=== PATIENT | female | born 1935 | race Caucasian/White ===

== ENCOUNTER 2017-11-29 13:47 | Inpatient (IN) | payer MEDICARE, MEDICAID ==
[2017-11-29 16:25] LABS: BASO # 0.1 K/uL (0.0-0.2); BASO % 0.8 % (0.0-2.0); EOS # 0.1 K/uL (0.0-0.7); EOS % 1.1 % (0.0-4.0); HEMOGLOBIN 11.5 g/dL (11.0-16.0); LYMPH # 1.2 K/uL (1.0-4.3); LYMPH % 11.7 % (20.0-40.0); MEAN CORPUSCULAR HEMOGLOBIN 31.8 pg (27.0-31.0); MEAN CORPUSCULAR HGB CONC 33.6 g/dL (33.0-37.0); MEAN PLATELET VOLUME 8.2 fL (7.2-11.7); MONO # 0.6 K/uL (0.0-0.8); MONO % 5.7 % (0.0-10.0); NEUT % 80.7 % (50.0-75.0); RBC 3.63 Mil/uL (3.80-5.20); RED CELL DISTRIBUTION WIDTH 15.9 % (11.5-14.5)
[2017-11-29 16:27] LABS: MEAN CELL VOLUME 94.7 fL (81.0-99.0)
[2017-11-29 16:38] LABS: ALB/GLOB RATIO 1.1 (1.0-2.1); ALT/SGPT 75 U/L (9-52); AST/SGOT 52 U/L (14-36); BLOOD UREA NITROGEN 17 mg/dL (7-17); CALCIUM 8.2 mg/dl (8.6-10.4); GFR AFRICAN-AMERICAN > 60; GFR NON-AFRICAN AMERICAN > 60; INR 1.1; PROTHROMBIN TIME 12.1 SECONDS (9.7-12.2)
[2017-11-29] MEDS ORDERED: Sodium Chloride 0.9% 500 ML IV ONE ×2 (17:03→17:37)
--- NOTE | 2017-11-29 17:16 | C.PDOC ---
History Of Present Illness [facility] problem. Time Seen by Provider: 11/29/17 14:13 Chief Complaint (Nursing): GI Problem History Per: Other ([facility] records) History/Exam Limitations: clinical condition Onset/Duration Of Symptoms: Unknown (today) Current Symptoms Are (Timing): Still Present Severity: Moderate Location: G-tube Quality: Leaking? Additional History Per: [facility], Prior Records Past Medical History Reviewed: Historical Data, Nursing Documentation, Vital Signs Vital Signs: Last Vital Signs Temp 97.6 F 11/29/17 14:06 Pulse 89 11/29/17 17:47 Resp 16 11/29/17 17:47 BP 157/69 H 11/29/17 17:47 Pulse Ox 100 11/29/17 17:47 - Medical History PMH: Asthma, HTN, Parkinson's Disease, Seizures Surgical History: Cholecystectomy - [facility] Procedures INTRAOPER CHOLANGIOGRAM (07/13/01) LAPAROSCOPIC CHOLECYSTECTOMY (07/13/01) Family History: States: Unknown Family Hx - Social History Hx Tobacco Use: No Hx Alcohol Use: No Hx Substance Use: No - Immunization History Hx Tetanus Toxoid Vaccination: Yes Hx Influenza Vaccination: Yes Hx Pneumococcal Vaccination: No Review Of Systems Review Of Systems: ROS cannot be obtained secondary to pt's inabilty to answer questions. Physical Exam - Physical Exam Appears: Chronically Ill, Other (Nonverbal) Skin: Normal Color, Warm, Dry Head: Atraumatic, Normacephalic Eye(s): bilateral: PERRL Neck: Normal ROM, Supple Cardiovascular: Rhythm Regular Respiratory: Normal Breath Sounds, No Accessory Muscle Use Gastrointestinal/Abdominal: Soft, Other (G-tube in place with some discharge around it. Fresh surgical wound on abdomen. ) Neurological/Psych: Eyes Open With Command ED Course And Treatment - Laboratory Results Result Diagrams: 11/29/17 16:22 11/29/17 16:22 O2 Sat by Pulse Oximetry: 100 Pulse Ox Interpretation: Normal - Physician Consult Information Physician Contacted: Dre Martin Outcome Of Conversation: He wants pt to be admitted to the hospital and he will consult. Disposition Discussed With : Rafiq Celaya Comment: He accepted pt on his service. Doctor Will See Patient In The: Hospital Counseled Patient/Family Regarding: Studies Performed, Diagnosis - Disposition Disposition: HOSPITALIZED Disposition Time: 18:46 Condition: GUARDED - Clinical Impression Clinical Impression: Problem with gastrostomy tube
[2017-11-29] MEDS: Sodium Chloride 0.9% 1,000 ML IV SCH (23:19)
[2017-11-30] MEDS ORDERED: DIAZEPAM RC PRN ×2 (00:01→10:10)
[2017-11-30] MEDS: Simethicone 40 mg/0.6 ml Liquid (30 ml) PEG SCH ×2 (04:06→08:10)
[2017-11-30] MEDS: Albuterol-Ipratrop 3 mg / 0.5 (3 ml) UD IH SCH (09:42)
[2017-11-30] MEDS: Multiple Vitamins Oral Solution PEG SCH (09:54)
[2017-11-30] MEDS: Carbidopa/Levodopa 25/100 CR PO SCH ×3 (09:55→19:00)
[2017-11-30] MEDS ORDERED: Ergocalciferol 50,000 Intl Units Cap PO SCH (10:00)
[2017-11-30] MEDS: Magnesium Hydroxide Susp 30 ml UD PEG SCH (10:07)
--- NOTE | 2017-11-30 11:12 | CP.PCM.PN ---
Subjective - Date & Time of Evaluation Date of Evaluation: 11/30/17 Time of Evaluation: 11:10 - Subjective Subjective: PGY-[address] Celaya's service: PT seen and examined at bedside. Nursing reports no acute events overnight. Nursing notes from MD show problems with g-tube. ROS cannot be obtained due to baseline pt mental status. Objective - Vital Signs/Intake and Output Vital Signs (last 24 hours): Temp Pulse Resp BP Pulse Ox 97.8 F 96 H 21 160/70 H 98 11/30/17 07:00 11/30/17 07:00 11/30/17 07:00 11/30/17 09:55 11/30/17 07:00 Intake and Output: 11/30/17 11/30/17 06:59 18:59 Intake Total 480 Output Total 1400 Balance -920 - Medications Medications: Current Medications Acetaminophen (Tylenol 325mg Tab) 650 mg PEG Q4 [facility] Last Admin: 11/30/17 08:58 Dose: 650 mg Albuterol/Ipratropium (Duoneb 3 Mg/0.5 Mg (3 Ml) Ud) 3 ml IH DAILY [facility] Last Admin: 11/30/17 09:42 Dose: 3 ml Amantadine HCl (Amantadine 100 Mg Cap) 100 mg PEG BID [facility] Last Admin: 11/30/17 09:55 Dose: 100 mg Amlodipine Besylate (Norvasc) 5 mg PEG DAILY [facility] Last Admin: 11/30/17 09:55 Dose: 5 mg Aspirin (Aspirin Chewable) 81 mg PEG DAILY [facility] Last Admin: 11/30/17 09:55 Dose: 81 mg Carbidopa/Levodopa (Sinemet Cr) 1 tab PO TID [facility] Last Admin: 11/30/17 09:55 Dose: 1 tab Entacapone (Comtan) 200 mg PEG Q8 [facility] Last Admin: 11/30/17 05:56 Dose: 200 mg Ergocalciferol (Drisdol 50,000 Intl Units Cap) 1 cap PO QWK [facility] Last Admin: 11/30/17 09:54 Dose: 1 cap Furosemide (Lasix) 40 mg PEG DAILY [facility] Last Admin: 11/30/17 09:55 Dose: 40 mg Home Med (Diazepam [Diastat Acudial]) 1 each RC PRN PRN PRN Reason: Seizure activity Hydralazine HCl (Apresoline) 50 mg PEG Q6 [facility] Last Admin: 11/30/17 05:56 Dose: 50 mg Sodium Chloride (Sodium Chloride 0.9%) 1,000 mls @ 60 mls/hr IV .[id number] [facility] Last Admin: 11/29/17 23:19 Dose: 60 mls/hr Lamotrigine (Lamictal) 25 mg PO Q12 [facility] Last Admin: 11/30/17 09:54 Dose: 25 mg Magnesium Hydroxide (Milk Of Magnesia) 30 ml PEG DAILY [facility] Metoprolol Tartrate (Lopressor) 25 mg PEG DAILY [facility] Multivitamins/Vitamin C (Multi-Delyn Liquid) 5 ml PEG DAILY [facility] Last Admin: 11/30/17 09:54 Dose: 5 ml Ondansetron HCl (Zofran Tab) 4 mg PEG Q8 [facility] Rosuvastatin Calcium (Crestor) 10 mg PEG HS [facility] Simethicone (Mylicon Liq) 2,000 mg PEG Q4 [facility] - Labs Labs: 11/29/17 16:22 11/29/17 16:22 PT 12.1 SECONDS (9.7-12.2) 11/29/17 16:22 INR 1.1 11/29/17 16:22 APTT 32 SECONDS (21-34) 11/29/17 16:22 - Constitutional Appears: No Acute Distress, Chronically Ill - Head Exam Head Exam: ATRAUMATIC, NORMAL INSPECTION - Eye Exam Eye Exam: EOMI, Normal appearance. absent: Scleral icterus Pupil Exam: PERRL - ENT Exam ENT Exam: Mucous Membranes Moist - Respiratory Exam Respiratory Exam: Clear to Ausculation Bilateral, NORMAL BREATHING PATTERN. absent: Rales - Cardiovascular Exam Cardiovascular Exam: REGULAR RHYTHM, +S1, +S2 - GI/Abdominal Exam GI & Abdominal Exam: Soft, Normal Bowel Sounds Additional comments: G-tube in place Mild erythema around surgical wound White discharge seen on periphery - Neurological Exam Neurological Exam: Altered (non-verbal), Awake. absent: Oriented x3 - Skin Skin Exam: Normal Color, Warm Assessment and Plan - Assessment and Plan (Free Text) Plan: Abd wall cellulitis WBC WNL, Afebrile f/u Ct A/P w PO & IV contrast to r/o intra-abd cavity/abscess formation Flagyl 500mg IV Q8H (started 11/30) Bactroban ointment TOP BID G-tube malfunction Observe on med/surg Dr. Martin, GI bridal consultant - NPO for 12/01/17 f/u dietary reccs, may need TPN NS @ 60cc/hr Abnormal Urine C&S - presumed UTI Pt afebrile over course, WBC WNL Urine Cx: Gram negative Ti Start Rocephin Hx of asthma Duoneb 3ml INH Daily Hx of AMS/Dementia/Parkinsons Consulted Dr. Lowe, neurologist Amantadine 100mg PEG BID Sinemet 1 tab PO TID Entacapone 200mg PEG Q8H Transaminitis AST/ALT 52/75 on admission Monitor after hydration HTN Elevated this AM - monitor Norvasc 5mg PEG Daily Apresoline 50mg PEG Q6H Hx CAD ASA 81mg PEG Daily Crestor 10mg PEG HS Lopressor 25 PEG Daily Vit D Deficiency Ergocalciferol 50k units QWK Seizure Hx Lamictal 25mg PO Q12H Prophylaxis SCDs Hold lovenox due to pending intervention
[2017-11-30] MEDS ORDERED: Simethicone 40 mg/0.6 ml Liquid (30 ml) PEG SCH (12:00)
[2017-11-30] MEDS ORDERED: Iohexol 240 (50 ml) PO ONE (12:15)
--- NOTE | 2017-11-30 12:52 | CP.PCM.HP ---
Past Patient History - Past Social History Smoking Status: Former Smoker - CARDIAC Hx Hypertension: Yes - PULMONARY Hx Asthma: Yes - NEUROLOGICAL Hx Parkinson's Disease: Yes Hx Seizures: Yes - RENAL Hx Chronic Kidney Disease: No - ENDOCRINE/METABOLIC Hx Endocrine Disorders: No - HEMATOLOGICAL/ONCOLOGICAL Hx Anemia: Yes - MUSCULOSKELETAL/RHEUMATOLOGICAL Hx Falls: Yes (2014) - GASTROINTESTINAL Hx Gastroesophageal Reflux: Yes Other/Comment: dysphagia - GENITOURINARY/GYNECOLOGICAL Hx Urinary Tract Infection: Yes - PSYCHIATRIC Hx Substance Use: No - SURGICAL HISTORY Hx Cholecystectomy: Yes - ANESTHESIA Hx Anesthesia: Yes Hx Anesthesia Reactions: No Meds Allergies/Adverse Reactions: Allergies Allergy/AdvReac Type Severity Reaction Status Date / Time No Known Allergies Allergy Verified 11/29/17 14:10 Physical Exam - Constitutional Appears: Well - Head Exam Head Exam: ATRAUMATIC, NORMAL INSPECTION, NORMOCEPHALIC - Eye Exam Eye Exam: EOMI, Normal appearance, PERRL Pupil Exam: NORMAL ACCOMODATION, PERRL - ENT Exam ENT Exam: Mucous Membranes Moist, Normal Exam - Neck Exam Neck exam: Positive for: Normal Inspection - Respiratory Exam Respiratory Exam: Decreased Breath Sounds - Cardiovascular Exam Cardiovascular Exam: REGULAR RHYTHM, +S1, +S2 - GI/Abdominal Exam GI & Abdominal Exam: Diminished Bowel Sounds, Soft - Rectal Exam Rectal Exam: Deferred Results - Vital Signs Recent Vital Signs: Last Vital Signs Temp 97.8 F 11/30/17 07:00 Pulse 96 H 11/30/17 07:00 Resp 21 11/30/17 07:00 BP 160/70 H 11/30/17 09:55 Pulse Ox 98 11/30/17 07:00 - Labs Result Diagrams: 11/29/17 16:22 11/29/17 16:22 Labs: Laboratory Results - last 24 hr 11/29/17 11/29/17 11/29/17 16:22 16:22 16:22 WBC 10.0 RBC 3.63 L Hgb 11.5 Hct 34.4 MCV 94.7 D MCH 31.8 H MCHC 33.6 RDW 15.9 H Plt Count 318 D MPV 8.2 Neut % (Auto) 80.7 H Lymph % (Auto) 11.7 L [place] % (Auto) 5.7 Eos % (Auto) 1.1 Baso % (Auto) 0.8 Neut # (Auto) 8.0 H Lymph # (Auto) 1.2 [place] # (Auto) 0.6 Eos # (Auto) 0.1 Baso # (Auto) 0.1 PT 12.1 INR 1.1 APTT 32 Sodium 138 Potassium 3.8 Chloride 102 Carbon Dioxide 30 Anion Gap 9 L BUN 17 Creatinine 0.6 L Est GFR ( Amer) > 60 Est GFR (Non-Af Amer) > 60 Random Glucose 123 H Calcium 8.2 L Total Bilirubin 1.0 AST 52 H ALT 75 H D Alkaline Phosphatase 94 Total Protein 5.9 L Albumin 3.0 L D Globulin 2.9 Albumin/Globulin Ratio 1.1
[2017-11-30] MEDS: Sodium Chloride 0.9% 1,000 ML IV SCH ×2 (13:11→15:55)
[2017-11-30] MEDS: metroNIDAZOLE IV 500 mg/100 ml 500 MG/100 ML BAG IVPB SCH ×2 (13:40→21:56)
--- NOTE | 2017-11-30 14:29 | PN ---
DATE: LOCATION: 364, bed B. SUBJECTIVE: This is an 82-year-old female seen and examined yesterday on 11/29/2017 as per the request of the ER staff as well as the admitting MD, examined again today with the staff in the floor. The case was discussed at length with the ER staff as well as the admitting MD. The patient reported to have gastrostomy tube in place, leaking, without any reported active bleeding or residual, but edematous changes with hypererythematous changes around the gastrostomy tube with possible intra-abdominal or even intragastric cavity abscess formation with partial malfunction of the G-tube. The entire chart is reviewed including but not limited to the most recent lab and radiology study results, current and the previous medication list, current and the previous medical events. Today's lab results are still pending; however, yesterday's lab showed increased blood glucose level with low calcium, mildly elevated AST and ALT with low albumin, low total protein. No abdominal x-ray done yet. PHYSICAL EXAMINATION: GENERAL: An 82-year-old female, somewhat awake. VITAL SIGNS: Afebrile with pulse of 94, respiratory rate of 20 to 22, blood pressure of 154/66. HEENT: Showed pale, dry oral mucous membranes mildly, nonicteric sclerae. LUNGS: Scattered mild crepitation. Decreased air entry at bases. HEART: Positive S1 and S2. ABDOMEN: Soft with mild abdominal distention, with leakage around the gastrostomy tube, associated with anterior abdominal wall cellulitis, mild. This G-tube was placed surgically in [facility] a few days ago. EXTREMITIES: Without significant clubbing, cyanosis, or edema. NEUROLOGIC: No reported new neurological deficits, sensory or motor. No reported new focal deficits. IMPRESSION: 1. Gastrostomy tube malfunction. 2. Anterior abdominal wall cellulitis, rule out intra-abdominal intragastric cavity abscess formation. 3. Infected gastrocutaneous fistula, post gastrostomy tube insertion. 4. Known history but not limited to hypertension, seizure disorder, parkinsonian disease with bronchial asthma. 5. Known history of status post cholecystectomy. 6. Peptic ulcer disease by patient's upper endoscopy. SUGGESTIONS: 1. Agree with your plan. 2. Continue current antibiotics including Flagyl IV as discussed with the ER staff which was not apparently ordered before. 3. Peripheral hyperalimentation. 4. abdominal and pelvic CAT scan. 5. Patient may need endoscopic evaluation of the upper GI tract at a.m. for evaluation of the location of the mushroom head of the gastrostomy tube after full evaluation of the CAT scan of the abdomen and pelvis. 6. Further recommendation to follow. Dre Bell MD
[2017-11-30] MEDS ORDERED: Iodixanol 320 MG/ML 100 ML BOTTLE IV ONE (15:43)
--- NOTE | 2017-11-30 16:34 | CT ---
PROCEDURE: CT Abdomen and Pelvis with contrast HISTORY: r/o intra abdominal abcess COMPARISON: None. TECHNIQUE: Contrast dose: 100 mL Visipaque 320 Radiation dose: Total exam DLP = 1033.27 mGy-cm. This CT exam was performed using one or more of the following dose reduction techniques: Automated exposure control, adjustment of the mA and/or kV according to patient size, and/or use of iterative reconstruction technique. FINDINGS: LOWER THORAX: Small bilateral pleural effusion. Bilateral lower lobe subsegmental atelectasis, right greater than left. Mild cardiomegaly. Coronary arterial calcification. LIVER: Normal size, contour and attenuation. Multiple small low-attenuation nonspecific hepatic masses, largest 2 cm. No biliary ductal dilatation. GALLBLADDER AND BILE DUCTS: Status post cholecystectomy. Mild dilatation of the common bile duct consistent with prior cholecystectomy and patient age. PANCREAS: Unremarkable. No gross lesion or ductal dilatation. SPLEEN: Unremarkable. ADRENALS: Unremarkable. No mass. KIDNEYS AND URETERS: Exophytic left upper pole renal cortical cyst, 1.5 cm. No renal calculus or hydronephrosis. VASCULATURE: Unremarkable. No aortic aneurysm. BOWEL: No evidence of bowel obstruction. Mild retained feces. Cecum is situated in left lower quadrant of abdomen. Percutaneous gastrostomy. APPENDIX: Not identified. No secondary findings. PERITONEUM: Trace fluid in cul-de-sac LYMPH NODES: Unremarkable. No enlarged lymph nodes. BLADDER: Urinary bladder decompressed around Cordon catheter balloon. REPRODUCTIVE: Postmenopausal uterus. BONES: Severe thoracolumbar dextroscoliosis. OTHER FINDINGS: None. IMPRESSION: No evidence of intra-abdominal abscess. No bowel obstruction. Percutaneous gastrostomy. Small bilateral pleural effusion and lower lobe subsegmental atelectasis. Additional minor findings as above.
[2017-11-30] MEDS: Simethicone 80 mg Chewtab PO SCH ×2 (18:00→21:50)
[2017-12-01] MEDS: metroNIDAZOLE IV 500 mg/100 ml 500 MG/100 ML BAG IVPB SCH ×3 (05:19→21:45)
[2017-12-01] MEDS: Sodium Chloride 0.9% 1,000 ML IV SCH ×2 (05:21→07:59)
--- NOTE | 2017-12-01 06:26 | CON ---
DATE: 11/29/2017 REQUESTED PHYSICIAN: Sonia Celaya MD I was called for GI consultation by the admitting MD as well as the ER staff, patient is seen and fully examined on 11/29/2017. Case discussed with the ER staff at that time at length. The entire chart is reviewed including but not limited to the most recent lab and radiology study results, current and the previous medication list, current and the previous medical events, allergy to medication list, as well as all the available current and the previous medical records. Case discussed with the admitting team at length. This is an 82 years old female with multiple past medical history, who was admitted to the hospital through the emergency room from a half-way with reported leakage of recently inserted gastrostomy tube with gastrostomy tube dysfunction partially and apparently evidence of anterior abdominal wall cellulitis but no reported active bleeding or residual, no reported complete resistance during feeding. It has to be mentioned that all the information obtained from the medical record, medical staff, half-way notes, and nursing staff records. This patient is a known case for me from very recent previous admission in [facility] with status post upper endoscopy, then gastrostomy tube insertion by surgical team. PAST MEDICAL HISTORY: Including, but not limited to: 1. Hypertension. 2. Seizure disorder. 3. Parkinsonian disease. 4. Bronchial asthma with history of pneumonia before. 5. Status post cholecystectomy. 6. Malnutrition. 7. Peptic ulcer disease. 8. Failure to thrive. 9. Status post gastrostomy tube insertion done surgically recently. SOCIAL HISTORY: No known recent history of cigarette smoking or alcohol intake. The patient is a half-way resident. CURRENT MEDICATIONS: Medication list post admission reviewed. FAMILY HISTORY: Noncontributory. ALLERGIES TO MEDICATIONS: UNCLEAR. Initial blood workup at the time of the admission showed white blood cells of 10, hemoglobin 11.5, hematocrit 34.4 with platelet count 318,000. Blood glucose level 123. PHYSICAL EXAMINATION: GENERAL: An 82-year-old female, somewhat awake, afebrile with pulse of 86, respiratory rate 18-20, blood pressure 154/62. HEENT: Showed pale, dry oral mucous membrane mildly. Nonicteric sclerae. LYMPH NODES: No lymphadenitis or lymphadenopathy. LUNGS: Few scattered bilateral crepitation with few rhonchi and mild decreased air entry bilaterally. HEART: Positive S1 and S2. ABDOMEN: Soft with mild distention, recently inserted gastrostomy tube is in place, leaking, with very slight resistance to feeding material or water insertion. Hyper-erythematous mucosa around the recently formed stoma, indicative of anterior abdominal wall cellulitis. No mass or organomegaly. No rebound tenderness or guarding. EXTREMITIES: Lower extremities mild edematous changes. No clubbing or cyanosis. NEUROLOGIC: No reported new neurological deficits, sensory or motor. No new reported focal deficits. IMPRESSION: 1. Gastrostomy tube malfunction. 2. Evidence of early stage of anterior abdominal wall cellulitis. 3. To rule out displaced mushroom head of feeding tube between the anterior abdominal wall and gastric wall. 4. Multiple past medical history as reported above. 5. Hyperglycemia of unclear etiology. SUGGESTIONS: 1. Proton pump inhibitors IV. 2. Flagyl IV. 3. Sectional abdominal and pelvic CAT scan. 4. Central hyperalimentation. 5. Surgical consultation, as this gastrostomy tube was inserted surgically and the possibility of intragastric intra-abdominal wall abscess formation to be ruled in or out. 6. The patient may need upper endoscopy if the symptoms persist. Thank you for letting me participate in your patient's case management. Further recommendation to follow. Dre Bell MD
[2017-12-01 07:22] LABS: BASO # 0.2 K/uL (0.0-0.2); BASO % 2.6 % (0.0-2.0); EOS # 0.2 K/uL (0.0-0.7); EOS % 2.2 % (0.0-4.0); HEMOGLOBIN 10.9 g/dL (11.0-16.0); LYMPH # 1.3 K/uL (1.0-4.3); LYMPH % 15.4 % (20.0-40.0); MEAN CELL VOLUME 95.2 fL (81.0-99.0); MEAN CORPUSCULAR HEMOGLOBIN 32.4 pg (27.0-31.0); MEAN PLATELET VOLUME 8.5 fL (7.2-11.7); MONO # 0.6 K/uL (0.0-0.8); MONO % 7.2 % (0.0-10.0); NEUT # 6.2 K/uL (1.8-7.0); NEUT % 72.6 % (50.0-75.0); RBC 3.37 Mil/uL (3.80-5.20); WHITE BLOOD COUNT 8.5 K/uL (4.8-10.8)
[2017-12-01 07:36] LABS: ALB/GLOB RATIO 0.9 (1.0-2.1); ALBUMIN 2.7 g/dL (3.5-5.0); ALT/SGPT 25 U/L (9-52); AST/SGOT 36 U/L (14-36); BLOOD UREA NITROGEN 12 mg/dL (7-17); CALCIUM 8.6 mg/dl (8.6-10.4); GFR AFRICAN-AMERICAN > 60; GFR NON-AFRICAN AMERICAN > 60
[2017-12-01] MEDS: Magnesium Hydroxide Susp 30 ml UD PEG SCH (10:08)
[2017-12-01] MEDS: Multiple Vitamins Oral Solution PEG SCH (10:08)
[2017-12-01] MEDS: Carbidopa/Levodopa 25/100 CR PO SCH ×3 (10:10→21:51)
[2017-12-01] MEDS: Simethicone 80 mg Chewtab PO SCH ×4 (10:11→21:50)
[2017-12-01] MEDS: Albuterol-Ipratrop 3 mg / 0.5 (3 ml) UD IH SCH (13:48)
--- NOTE | 2017-12-01 14:28 | CP.PCM.CON ---
History of Present Illness - History of Present Illness History of Present Illness: [facility] due to [facility] problem. Chief Complaint (Nursing): GI Problem, Gastric tube is not conveying her food to the stomach Advanced Parkinsonism Seizures Dementia Inability to walk since 2 years Acute AMS Dementia HTN High Lipid profile Dysphagia Resident of a penitentiary. Vitamin D Deficiency History Per: Other ([place] records) History/Exam Limitations: clinical condition Onset/Duration Of Symptoms: Unknown (today) Current Symptoms Are (Timing): Still Present Severity: Moderate Location: G-tube Quality: Leaking? Additional History Per: Jail, Prior Records Past Medical History Reviewed: Historical Data, Nursing Documentation, Vital Signs Vital Signs: Last Vital Signs Temp 97.6 F 11/29/17 14:06 Pulse 89 11/29/17 17:47 Resp 16 11/29/17 17:47 BP 157/69 H 11/29/17 17:47 Pulse Ox 100 11/29/17 17:47 - Medical History PMH: Asthma, HTN, Advanced Parkinson's Disease, Seizures Surgical History: Cholecystectomy - [facility] Procedures INTRAOPER CHOLANGIOGRAM (07/13/01) LAPAROSCOPIC CHOLECYSTECTOMY (07/13/01) Family History: States: Unknown Family Hx - Social History Hx Tobacco Use: No Hx Alcohol Use: No Hx Substance Use: No - Immunization History Hx Tetanus Toxoid Vaccination: Yes Hx Influenza Vaccination: Yes Hx Pneumococcal Vaccination: No Review Of Systems Review Of Systems: ROS cannot be obtained secondary to pt's inabilty to answer questions. Physical Exam - Physical Exam Appears: Chronically Ill, Other (Nonverbal) Skin: Normal Color, Warm, Dry Head: Atraumatic, Normacephalic Eye(s): bilateral: PERRL Neck: Normal ROM, Supple Cardiovascular: Rhythm Regular Respiratory: Normal Breath Sounds, No Accessory Muscle Use Gastrointestinal/Abdominal: Soft, Other (G-tube in place with some discharge around it. Fresh surgical wound on abdomen. ) Neurological/Psych: Eyes Open With Command ED Course And Treatment - Laboratory Results O2 Sat by Pulse Oximetry: 100 Pulse Ox Interpretation: Normal - Physician Consult Information Physician Contacted: Dre Martin Outcome Of Conversation: He wants pt to be admitted to the hospital and he will consult. Disposition Discussed With : Sonia Celaya Comment: He accepted pt on his service. Doctor Will See Patient In The: Hospital Counseled Patient/Family Regarding: Studies Performed, Diagnosis - Disposition Disposition: HOSPITALIZED Disposition Time: 18:46 Condition: GUARDED - Clinical Impression Clinical Impression: Problem with gastrostomy tube Past Patient History - Past Social History Smoking Status: Former Smoker - CARDIAC Hx Hypertension: Yes - PULMONARY Hx Asthma: Yes - NEUROLOGICAL Hx Parkinson's Disease: Yes Hx Seizures: Yes - RENAL Hx Chronic Kidney Disease: No - ENDOCRINE/METABOLIC Hx Endocrine Disorders: No - HEMATOLOGICAL/ONCOLOGICAL Hx Anemia: Yes - MUSCULOSKELETAL/RHEUMATOLOGICAL Hx Falls: Yes (2014) - GASTROINTESTINAL Hx Gastroesophageal Reflux: Yes Other/Comment: dysphagia - GENITOURINARY/GYNECOLOGICAL Hx Urinary Tract Infection: Yes - PSYCHIATRIC Hx Substance Use: No - SURGICAL HISTORY Hx Cholecystectomy: Yes - ANESTHESIA Hx Anesthesia: Yes Hx Anesthesia Reactions: No Meds Home Medications: Home Medication List Medication Instructions Recorded Confirmed Type Calcium Carbonate [Oscal] 500 mg PO BID 30 Days #0 tab 12/03/17 Rx Memantine [Namenda] 10 mg PO DAILY tab 12/03/17 Rx Mupirocin 2% Ointment [Bactroban 22 gm TOP BID tube 12/03/17 Rx Ointment] Simethicone [Mylicon Chew Tab] 80 mg PO QID chew 12/03/17 Rx Allergies/Adverse Reactions: Allergies Allergy/AdvReac Type Severity Reaction Status Date / Time No Known Allergies Allergy Verified 11/29/17 14:10 - Medications Medications: Current Medications Acetaminophen (Tylenol 325mg Tab) 650 mg PEG Q4 [facility] Last Admin: 12/01/17 12:23 Dose: 650 mg Albuterol/Ipratropium (Duoneb 3 Mg/0.5 Mg (3 Ml) Ud) 3 ml IH DAILY [facility] Last Admin: 12/01/17 13:48 Dose: 3 ml Amantadine HCl (Amantadine 100 Mg Cap) 100 mg PEG BID [facility] Last Admin: 12/01/17 10:10 Dose: 100 mg Amlodipine Besylate (Norvasc) 5 mg PEG DAILY [facility] Last Admin: 12/01/17 10:11 Dose: 5 mg Aspirin (Aspirin Chewable) 81 mg PEG DAILY [facility] Last Admin: 12/01/17 10:11 Dose: 81 mg Carbidopa/Levodopa (Sinemet Cr) 1 tab PO TID [facility] Last Admin: 12/01/17 13:48 Dose: 1 tab Entacapone (Comtan) 200 mg PEG Q8 [facility] Last Admin: 12/01/17 13:48 Dose: 200 mg Ergocalciferol (Drisdol 50,000 Intl Units Cap) 1 cap PO QWK [facility] Last Admin: 11/30/17 09:54 Dose: 1 cap Furosemide (Lasix) 40 mg PEG DAILY [facility] Last Admin: 12/01/17 10:12 Dose: 40 mg Home Med (Diazepam [Diastat Acudial]) 1 each RC PRN PRN PRN Reason: Seizure activity Hydralazine HCl (Apresoline) 50 mg PEG Q6 [facility] Last Admin: 12/01/17 12:23 Dose: 50 mg Sodium Chloride (Sodium Chloride 0.9%) 1,000 mls @ 60 mls/hr IV .[id number] [facility] Last Admin: 12/01/17 07:59 Dose: Not Given Metronidazole (Flagyl) 500 mg in 100 mls @ 100 mls/hr IVPB Q8 [facility] PRN Reason: Protocol Last Admin: 12/01/17 13:48 Dose: 100 mls/hr Ceftriaxone Sodium 1 gm/ (Sodium Chloride) 100 mls @ 100 mls/hr IVPB Q24H [facility] PRN Reason: Protocol Last Admin: 12/01/17 14:00 Dose: 100 mls/hr Lamotrigine (Lamictal) 25 mg PO Q12 [facility] Last Admin: 12/01/17 10:11 Dose: 25 mg Magnesium Hydroxide (Milk Of Magnesia) 30 ml PEG DAILY [facility] Last Admin: 12/01/17 10:08 Dose: 30 ml Metoprolol Tartrate (Lopressor) 25 mg PEG DAILY [facility] Last Admin: 12/01/17 10:11 Dose: 25 mg Multivitamins/Vitamin C (Multi-Delyn Liquid) 5 ml PEG DAILY [facility] Last Admin: 12/01/17 10:08 Dose: 5 ml Mupirocin (Bactroban Ointment) 0 gm TOP BID [facility] Last Admin: 12/01/17 10:24 Dose: 1 applic Ondansetron HCl (Zofran Tab) 4 mg PEG Q8 [facility] Last Admin: 12/01/17 05:19 Dose: 4 mg Rosuvastatin Calcium (Crestor) 10 mg PEG HS [facility] Last Admin: 11/30/17 21:49 Dose: 10 mg Simethicone (Mylicon Chew Tab) 80 mg PO QID [facility] Last Admin: 12/01/17 13:48 Dose: 80 mg Physical Exam - Neurological Exam Neurological exam: Abnormal Gait, Alert, Altered, CN II-XII Intact, Motor Sensory Deficit, Normal Gait, Oriented x3, Reflexes Normal Additional comments: Mental Status Awake, alert, disoriented, hardly verbal Doesn't follow commands knows her name positive eye to eye contact. Cranial Nerves II to XII: moves her eyes normally, Normal EOM movements Pupils are 3-4 mm, equal reactive to light No facial asymmetry Central Tongue, unable to swallow Gastric Tube is placed. Motor: Rigidity, positive cog wheeling generally weak, moves both UEs more than she is moving the LEs DTR 0/4 allover Toes: Equivocal sensory: Intact pain by moving away her hand and grimacing Cerebellar: unable Stature and gait: not walking since 2 years. Results - Vital Signs Recent Vital Signs: Last Vital Signs Temp 98.9 F 12/01/17 13:47 Pulse 94 H 12/01/17 13:47 Resp 19 12/01/17 13:47 BP 147/67 12/01/17 13:47 Pulse Ox 97 12/01/17 13:47 - Labs Result Diagrams: 12/03/17 08:03 12/03/17 08:03 Labs: Laboratory Results - last 24 hr 12/01/17 12/01/17 07:14 07:14 WBC 8.5 RBC 3.37 L Hgb 10.9 L Hct 32.1 L MCV 95.2 MCH 32.4 H MCHC 34.0 RDW 15.0 H Plt Count 303 MPV 8.5 Neut % (Auto) 72.6 Lymph % (Auto) 15.4 L [place] % (Auto) 7.2 Eos % (Auto) 2.2 Baso % (Auto) 2.6 H Neut # (Auto) 6.2 Lymph # (Auto) 1.3 [place] # (Auto) 0.6 Eos # (Auto) 0.2 Baso # (Auto) 0.2 Sodium 139 Potassium 3.8 Chloride 106 Carbon Dioxide 24 Anion Gap 13 BUN 12 Creatinine 0.6 L Est GFR ( Amer) > 60 Est GFR (Non-Af Amer) > 60 Random Glucose 64 L Calcium 8.6 Total Bilirubin 1.0 AST 36 D ALT 25 Alkaline Phosphatase 90 Total Protein 5.7 L Albumin 2.7 L Globulin 3.0 Albumin/Globulin Ratio 0.9 L Assessment & Plan (1) Parkinsonism Status: Chronic Comment: make Sinemet dose Q 8 hrs , 1 hr before or 2 hrs after meals, to be taken with Entacapone 200 mg Q 8 hrs. (2) HTN (hypertension) Status: Chronic (3) Hyperlipemia Status: Chronic (4) Dementia Status: Chronic (5) UTI (urinary tract infection) Status: Chronic (6) Problem with gastrostomy tube Status: Acute (7) Seizures Assessment and Plan: Active, CPSz On Lamictal 50 mg Q 12hrs Dose is increased to 50 mg Q 12 hrs Status: Acute (8) Altered mental status Assessment and Plan: Related, advanced Parkinsonism, to poor nutrition, Seizures, Encephalopathy, Advanced Parkinsonism, Dementia, UTI, Change of place from [facility] to 2 different [facility]als Status: Acute (9) Vitamin D deficiency Assessment and Plan: On Oscal 500 mg BID and Ergocalciferol 50,000 Units week Status: Acute (10) Sleep apnea Assessment and Plan: She needs a sleep study as sleep apnea is a known complication in Parkinsonism and she is not sleeping at night. Status: Acute
--- NOTE | 2017-12-01 14:34 | CP.PCM.PN ---
Subjective - Date & Time of Evaluation Date of Evaluation: 12/01/17 Time of Evaluation: 07:40 - Subjective Subjective: clinically same Objective - Vital Signs/Intake and Output Vital Signs (last 24 hours): Temp Pulse Resp BP Pulse Ox 98.9 F 94 H 19 147/67 97 12/01/17 13:47 12/01/17 13:47 12/01/17 13:47 12/01/17 13:47 12/01/17 13:47 Intake and Output: 12/01/17 12/01/17 06:59 18:59 Intake Total 1260 Output Total 2300 Balance -1040 - Medications Medications: Current Medications Acetaminophen (Tylenol 325mg Tab) 650 mg PEG Q4 [facility] Last Admin: 12/01/17 12:23 Dose: 650 mg Albuterol/Ipratropium (Duoneb 3 Mg/0.5 Mg (3 Ml) Ud) 3 ml IH DAILY [facility] Last Admin: 12/01/17 13:48 Dose: 3 ml Amantadine HCl (Amantadine 100 Mg Cap) 100 mg PEG BID [facility] Last Admin: 12/01/17 10:10 Dose: 100 mg Amlodipine Besylate (Norvasc) 5 mg PEG DAILY [facility] Last Admin: 12/01/17 10:11 Dose: 5 mg Aspirin (Aspirin Chewable) 81 mg PEG DAILY [facility] Last Admin: 12/01/17 10:11 Dose: 81 mg Carbidopa/Levodopa (Sinemet Cr) 1 tab PO TID [facility] Last Admin: 12/01/17 13:48 Dose: 1 tab Entacapone (Comtan) 200 mg PEG Q8 [facility] Last Admin: 12/01/17 13:48 Dose: 200 mg Ergocalciferol (Drisdol 50,000 Intl Units Cap) 1 cap PO QWK [facility] Last Admin: 11/30/17 09:54 Dose: 1 cap Furosemide (Lasix) 40 mg PEG DAILY [facility] Last Admin: 12/01/17 10:12 Dose: 40 mg Home Med (Diazepam [Diastat Acudial]) 1 each RC PRN PRN PRN Reason: Seizure activity Hydralazine HCl (Apresoline) 50 mg PEG Q6 [facility] Last Admin: 12/01/17 12:23 Dose: 50 mg Sodium Chloride (Sodium Chloride 0.9%) 1,000 mls @ 60 mls/hr IV .[id number] [facility] Last Admin: 12/01/17 07:59 Dose: Not Given Metronidazole (Flagyl) 500 mg in 100 mls @ 100 mls/hr IVPB Q8 [facility] PRN Reason: Protocol Last Admin: 12/01/17 13:48 Dose: 100 mls/hr Ceftriaxone Sodium 1 gm/ (Sodium Chloride) 100 mls @ 100 mls/hr IVPB Q24H [facility] PRN Reason: Protocol Last Admin: 12/01/17 14:00 Dose: 100 mls/hr Lamotrigine (Lamictal) 25 mg PO Q12 [facility] Last Admin: 12/01/17 10:11 Dose: 25 mg Magnesium Hydroxide (Milk Of Magnesia) 30 ml PEG DAILY [facility] Last Admin: 12/01/17 10:08 Dose: 30 ml Metoprolol Tartrate (Lopressor) 25 mg PEG DAILY [facility] Last Admin: 12/01/17 10:11 Dose: 25 mg Multivitamins/Vitamin C (Multi-Delyn Liquid) 5 ml PEG DAILY [facility] Last Admin: 12/01/17 10:08 Dose: 5 ml Mupirocin (Bactroban Ointment) 0 gm TOP BID [facility] Last Admin: 12/01/17 10:24 Dose: 1 applic Ondansetron HCl (Zofran Tab) 4 mg PEG Q8 [facility] Last Admin: 12/01/17 05:19 Dose: 4 mg Rosuvastatin Calcium (Crestor) 10 mg PEG HS [facility] Last Admin: 11/30/17 21:49 Dose: 10 mg Simethicone (Mylicon Chew Tab) 80 mg PO QID [facility] Last Admin: 12/01/17 13:48 Dose: 80 mg - Labs Labs: 12/01/17 07:14 12/01/17 07:14 PT 12.1 SECONDS (9.7-12.2) 11/29/17 16:22 INR 1.1 11/29/17 16:22 APTT 32 SECONDS (21-34) 11/29/17 16:22 - Constitutional Appears: Well - Head Exam Head Exam: ATRAUMATIC, NORMAL INSPECTION, NORMOCEPHALIC - Eye Exam Eye Exam: EOMI, Normal appearance, PERRL Pupil Exam: NORMAL ACCOMODATION, PERRL - ENT Exam ENT Exam: Mucous Membranes Moist, Normal Exam - Neck Exam Neck Exam: Full ROM, Normal Inspection. absent: Lymphadenopathy - Respiratory Exam Respiratory Exam: Decreased Breath Sounds - Cardiovascular Exam Cardiovascular Exam: REGULAR RHYTHM, +S1, +S2 - GI/Abdominal Exam GI & Abdominal Exam: Soft, Diminished Bowel Sounds - Rectal Exam Rectal Exam: Deferred
[2017-12-02] MEDS: Sodium Chloride 0.9% 1,000 ML IV SCH ×2 (00:21→17:50)
[2017-12-02] MEDS: metroNIDAZOLE IV 500 mg/100 ml 500 MG/100 ML BAG IVPB SCH ×3 (05:41→21:40)
[2017-12-02] MEDS: Carbidopa/Levodopa 25/100 CR PO SCH (05:42)
--- NOTE | 2017-12-02 08:52 | PN ---
DATE: 12/01/2017 LOCATION: 364, bed B. SUBJECTIVE: This is an 82-year-old female seen and examined in rounds without significant clinical changes or reported active bleeding, with leakage again around the recently inserted gastrostomy tube. The entire chart is reviewed including but not limited to the most recent lab and radiology study results, current and the previous medication list, current and the previous medical events. Case discussed with the staff at length. Still awaiting for legal guardian consent for potential upper endoscopy for full evaluation of the position of the gastrostomy tube mushroom head. Today's lab showed hemoglobin 10.9, hematocrit 32.1, normal white blood cells, and normal platelet count, low creatinine of 0.6. Hypoglycemia with blood glucose level of 64. Albumin 2.7, total protein 5.7. Most recently done CAT scan of the abdomen and pelvis yesterday, official report is seen. PHYSICAL EXAMINATION: GENERAL: An 82-year-old female, who appeared to be awake. VITAL SIGNS: Afebrile, with pulse of 96, respiratory rate 20 to 22, blood pressure of 140/64. HEENT: Showed pale, dry mucous membranes. Nonicteric sclerae. LUNGS: Few scattered crepitations. Decreased air entry at bases. HEART: Positive S1 and S2. ABDOMEN: Soft, with slight distention. The recently inserted gastrostomy tube is in place with partial dysfunction and leakage with evidence of anterior abdominal wall cellulitis. Bowel sounds are present. No mass or organomegaly. EXTREMITIES: Without significant edema, clubbing, or cyanosis. NEUROLOGIC: No reported new neurological deficits, sensory or motor. IMPRESSION: 1. Malnutrition with hypoalbuminemia, hypoproteinemia. 2. Known history of peptic ulcer disease. 3. Status post gastrostomy tube insertion done surgically with partial malfunction and leakage. 4. Evidence of anterior abdominal wall cellulitis. 5. Known history of, but not limited to bronchial asthma, seizure disorder, Parkinsonian disease with hypertension. 6. Known history of status post cholecystectomy. SUGGESTIONS: 1. Continue current management. 2. The patient for potential upper endoscopy at a.m., awaiting family or legal guardian consent. 3. Further recommendations to follow. Dre Bell MD
[2017-12-02] MEDS ORDERED: Lactated Ringer's 1,000 ML IV ONE ×3 (10:31)
[2017-12-02] MEDS: Multiple Vitamins Oral Solution PEG SCH (10:44)
[2017-12-02] MEDS: Magnesium Hydroxide Susp 30 ml UD PEG SCH (10:44)
[2017-12-02] MEDS: Simethicone 80 mg Chewtab PO SCH ×4 (10:46→21:34)
--- NOTE | 2017-12-02 11:31 | CP.PCM.PN ---
Subjective - Date & Time of Evaluation Date of Evaluation: 12/02/17 Time of Evaluation: 11:25 - Subjective Subjective: PGY-[address] Celaya's service: PT seen and examined at bedside. Nursing reports no acute events overnight. Pt for EEG this AM. ROS cannot be obtained due to baseline pt mental status. Objective - Vital Signs/Intake and Output Vital Signs (last 24 hours): Temp Pulse Resp BP Pulse Ox 97.5 F L 93 H 15 158/71 H 100 12/02/17 10:45 12/02/17 10:45 12/02/17 10:45 12/02/17 10:45 12/02/17 10:45 Intake and Output: 12/02/17 12/02/17 06:59 18:59 Intake Total 800 Output Total 500 Balance 300 - Medications Medications: Current Medications Acetaminophen (Tylenol 325mg Tab) 650 mg PEG Q4 PRN PRN Reason: FOR PAIN Albuterol/Ipratropium (Duoneb 3 Mg/0.5 Mg (3 Ml) Ud) 3 ml IH DAILY [facility] Last Admin: 12/01/17 13:48 Dose: 3 ml Amantadine HCl (Amantadine 100 Mg Cap) 100 mg PEG BID [facility] Last Admin: 12/02/17 10:43 Dose: Not Given Amlodipine Besylate (Norvasc) 5 mg PEG DAILY [facility] Last Admin: 12/02/17 10:46 Dose: Not Given Aspirin (Aspirin Chewable) 81 mg PEG DAILY [facility] Last Admin: 12/02/17 10:43 Dose: Not Given Calcium Carbonate (Oscal) 500 mg PO BID [facility] Last Admin: 12/02/17 10:46 Dose: Not Given Carbidopa/Levodopa (Sinemet) 1 tab PO Q8 [facility] Entacapone (Comtan) 200 mg PEG Q8 [facility] Last Admin: 12/02/17 05:43 Dose: Not Given Ergocalciferol (Drisdol 50,000 Intl Units Cap) 1 cap PO QWK [facility] Last Admin: 11/30/17 09:54 Dose: 1 cap Furosemide (Lasix) 40 mg PEG DAILY [facility] Last Admin: 12/02/17 10:44 Dose: Not Given Home Med (Diazepam [Diastat Acudial]) 1 each RC PRN PRN PRN Reason: Seizure activity Hydralazine HCl (Apresoline) 50 mg PEG Q6 [facility] Last Admin: 12/02/17 05:43 Dose: Not Given Sodium Chloride (Sodium Chloride 0.9%) 1,000 mls @ 60 mls/hr IV .[id number] [facility] Last Admin: 12/02/17 00:21 Dose: 60 mls/hr Metronidazole (Flagyl) 500 mg in 100 mls @ 100 mls/hr IVPB Q8 [facility] PRN Reason: Protocol Last Admin: 12/02/17 05:41 Dose: 100 mls/hr Ceftriaxone Sodium 1 gm/ (Sodium Chloride) 100 mls @ 100 mls/hr IVPB Q24H [facility] PRN Reason: Protocol Last Admin: 12/01/17 14:00 Dose: 100 mls/hr Lamotrigine (Lamictal) 50 mg PO Q12 [facility] Last Admin: 12/02/17 10:44 Dose: Not Given Magnesium Hydroxide (Milk Of Magnesia) 30 ml PEG DAILY [facility] Last Admin: 12/02/17 10:44 Dose: Not Given Memantine (Namenda) 10 mg PO DAILY [facility] Last Admin: 12/02/17 10:46 Dose: Not Given Metoprolol Tartrate (Lopressor) 25 mg PEG DAILY [facility] Last Admin: 12/02/17 10:44 Dose: Not Given Multivitamins/Vitamin C (Multi-Delyn Liquid) 5 ml PEG DAILY [facility] Last Admin: 12/02/17 10:44 Dose: Not Given Mupirocin (Bactroban Ointment) 0 gm TOP BID [facility] Last Admin: 12/02/17 10:43 Dose: Not Given Ondansetron HCl (Zofran Tab) 4 mg PEG Q8 [facility] Last Admin: 12/01/17 21:50 Dose: 4 mg Rosuvastatin Calcium (Crestor) 10 mg PEG HS [facility] Last Admin: 12/01/17 21:50 Dose: 10 mg Simethicone (Mylicon Chew Tab) 80 mg PO QID [facility] Last Admin: 12/02/17 10:46 Dose: Not Given - Labs Labs: 12/01/17 07:14 12/01/17 07:14 PT 12.1 SECONDS (9.7-12.2) 11/29/17 16:22 INR 1.1 11/29/17 16:22 APTT 32 SECONDS (21-34) 11/29/17 16:22 - Additional Findings Additional findings: - Constitutional Appears: No Acute Distress, Chronically Ill - Head Exam Head Exam: ATRAUMATIC, NORMAL INSPECTION - Eye Exam Eye Exam: EOMI, Normal appearance. absent: Scleral icterus Pupil Exam: PERRL - ENT Exam ENT Exam: Mucous Membranes Moist - Respiratory Exam Respiratory Exam: Clear to Ausculation Bilateral, NORMAL BREATHING PATTERN. absent: Rales - Cardiovascular Exam Cardiovascular Exam: REGULAR RHYTHM, +S1, +S2 - GI/Abdominal Exam GI & Abdominal Exam: Soft, Normal Bowel Sounds Additional comments: G-tube in place Mild erythema improving around surgical wound - Neurological Exam Neurological Exam: Altered (non-verbal), Awake. absent: Oriented x3 - Skin Skin Exam: Normal Color, Warm Assessment and Plan - Assessment and Plan (Free Text) Plan: G-tube malfunction Observe on med/surg Dr. Martin, GI corporate health consultant - Endoscopy (12/02/17): Medium hiatal hernia. Biopsied erythematous mucosa in stomach. Esophagitis. - f/u biopsy f/u dietary reccs, may need TPN NS @ 60cc/hr Esophagitis/Gastritis Found on endoscopy 12/02/17 Sucralafate 1gm PO QID x 8 weeks Abd wall cellulitis WBC WNL, Afebrile Ct A/P w PO & IV contrast (11/30/17): No evidence of intra-abd cavity/abscess formation. Flagyl 500mg IV Q8H (started 11/30) Bactroban ointment TOP BID Abnormal Urine C&S - presumed UTI Pt afebrile over course, WBC WNL Urine Cx: Gram negative Ti Start Rocephin (Day 2, Stop 12/03/17) Hx of asthma Duoneb 3ml INH Daily Hx of AMS/Dementia/Parkinsons Consulted Dr. Lowe, neurologist Amantadine 100mg PEG BID Sinemet 1 tab PO TID Entacapone 200mg PEG Q8H HTN Elevated this AM - monitor Norvasc 5mg PEG Daily Apresoline 50mg PEG Q6H Hx CAD ASA 81mg PEG Daily Crestor 10mg PEG HS Lopressor 25 PEG Daily Vit D Deficiency Ergocalciferol 50k units QWK Oscal 500mg PO BID Seizure Hx Dr Lowe, Neuro corporate health consultant Lamictal increased to 50mg PO Q12H Transaminitis Resolved AST/ALT 52/75 on admission Prophylaxis SCDs Hold lovenox due to pending intervention Piero Vaughn PGY-2 All medical management per Dr. Celaya
--- NOTE | 2017-12-02 13:49 | CP.PCM.PN ---
Subjective - Date & Time of Evaluation Date of Evaluation: 12/02/17 Time of Evaluation: 07:20 - Subjective Subjective: clinically same Objective - Vital Signs/Intake and Output Vital Signs (last 24 hours): Temp Pulse Resp BP Pulse Ox 97.5 F L 71 22 151/70 H 100 12/02/17 10:45 12/02/17 11:15 12/02/17 11:15 12/02/17 11:15 12/02/17 11:15 Intake and Output: 12/02/17 12/02/17 06:59 18:59 Intake Total 800 Output Total 500 Balance 300 - Medications Medications: Current Medications Acetaminophen (Tylenol 325mg Tab) 650 mg PEG Q4 PRN PRN Reason: FOR PAIN Albuterol/Ipratropium (Duoneb 3 Mg/0.5 Mg (3 Ml) Ud) 3 ml IH DAILY [facility] Last Admin: 12/01/17 13:48 Dose: 3 ml Amantadine HCl (Amantadine 100 Mg Cap) 100 mg PEG BID [facility] Last Admin: 12/02/17 10:43 Dose: Not Given Amlodipine Besylate (Norvasc) 5 mg PEG DAILY [facility] Last Admin: 12/02/17 10:46 Dose: Not Given Aspirin (Aspirin Chewable) 81 mg PEG DAILY [facility] Last Admin: 12/02/17 10:43 Dose: Not Given Calcium Carbonate (Oscal) 500 mg PO BID [facility] Last Admin: 12/02/17 10:46 Dose: Not Given Carbidopa/Levodopa (Sinemet) 1 tab PO Q8 [facility] Entacapone (Comtan) 200 mg PEG Q8 [facility] Last Admin: 12/02/17 05:43 Dose: Not Given Ergocalciferol (Drisdol 50,000 Intl Units Cap) 1 cap PO QWK [facility] Last Admin: 11/30/17 09:54 Dose: 1 cap Furosemide (Lasix) 40 mg PEG DAILY [facility] Last Admin: 12/02/17 10:44 Dose: Not Given Home Med (Diazepam [Diastat Acudial]) 1 each RC PRN PRN PRN Reason: Seizure activity Hydralazine HCl (Apresoline) 50 mg PEG Q6 [facility] Last Admin: 12/02/17 12:54 Dose: Not Given Sodium Chloride (Sodium Chloride 0.9%) 1,000 mls @ 60 mls/hr IV .[id number] [facility] Last Admin: 12/02/17 00:21 Dose: 60 mls/hr Metronidazole (Flagyl) 500 mg in 100 mls @ 100 mls/hr IVPB Q8 [facility] PRN Reason: Protocol Last Admin: 12/02/17 05:41 Dose: 100 mls/hr Ceftriaxone Sodium 1 gm/ (Sodium Chloride) 100 mls @ 100 mls/hr IVPB Q24H [facility] PRN Reason: Protocol Last Admin: 12/01/17 14:00 Dose: 100 mls/hr Lamotrigine (Lamictal) 50 mg PO Q12 [facility] Last Admin: 12/02/17 10:44 Dose: Not Given Magnesium Hydroxide (Milk Of Magnesia) 30 ml PEG DAILY [facility] Last Admin: 12/02/17 10:44 Dose: Not Given Memantine (Namenda) 10 mg PO DAILY [facility] Last Admin: 12/02/17 10:46 Dose: Not Given Metoprolol Tartrate (Lopressor) 25 mg PEG DAILY [facility] Last Admin: 12/02/17 10:44 Dose: Not Given Multivitamins/Vitamin C (Multi-Delyn Liquid) 5 ml PEG DAILY [facility] Last Admin: 12/02/17 10:44 Dose: Not Given Mupirocin (Bactroban Ointment) 0 gm TOP BID [facility] Last Admin: 12/02/17 10:43 Dose: Not Given Ondansetron HCl (Zofran Tab) 4 mg PEG Q8 [facility] Last Admin: 12/01/17 21:50 Dose: 4 mg Rosuvastatin Calcium (Crestor) 10 mg PEG HS [facility] Last Admin: 12/01/17 21:50 Dose: 10 mg Simethicone (Mylicon Chew Tab) 80 mg PO QID [facility] Last Admin: 12/02/17 10:46 Dose: Not Given - Labs Labs: 12/01/17 07:14 12/01/17 07:14 PT 12.1 SECONDS (9.7-12.2) 11/29/17 16:22 INR 1.1 11/29/17 16:22 APTT 32 SECONDS (21-34) 11/29/17 16:22 - Constitutional Appears: Well - Head Exam Head Exam: ATRAUMATIC, NORMAL INSPECTION, NORMOCEPHALIC - Eye Exam Eye Exam: EOMI, Normal appearance, PERRL Pupil Exam: NORMAL ACCOMODATION, PERRL - ENT Exam ENT Exam: Mucous Membranes Moist, Normal Exam - Neck Exam Neck Exam: Full ROM, Normal Inspection. absent: Lymphadenopathy - Respiratory Exam Respiratory Exam: Decreased Breath Sounds - Cardiovascular Exam Cardiovascular Exam: REGULAR RHYTHM, +S1, +S2 - GI/Abdominal Exam GI & Abdominal Exam: Soft, Diminished Bowel Sounds - Rectal Exam Rectal Exam: Deferred
[2017-12-02] MEDS: Albuterol-Ipratrop 3 mg / 0.5 (3 ml) UD IH SCH (14:00)
--- NOTE | 2017-12-03 01:30 | CP.PCM.PN ---
Subjective - Date & Time of Evaluation Date of Evaluation: 12/02/17 Time of Evaluation: 21:00 - Subjective Subjective: Gastric tube is inserted. Feeding and G.T medicine are reinstated after being cleared by [facility]. Physical exam is unchanged. She needs more time to come back to her baseline. Due to recurrent anemia, the patient will undergo a diagnostic Colonoscopy and Upper Endoscopy whenever her condition will allow. Objective - Vital Signs/Intake and Output Vital Signs (last 24 hours): Temp Pulse Resp BP Pulse Ox 97.7 F 85 20 125/70 99 12/02/17 23:12 12/02/17 23:12 12/02/17 23:12 12/02/17 23:12 12/02/17 23:12 Intake and Output: 12/02/17 12/03/17 18:59 06:59 Intake Total 500 800 Output Total 400 300 Balance 100 500 - Medications Medications: Current Medications Acetaminophen (Tylenol 325mg Tab) 650 mg PEG Q4 PRN PRN Reason: FOR PAIN Albuterol/Ipratropium (Duoneb 3 Mg/0.5 Mg (3 Ml) Ud) 3 ml IH DAILY [facility] Last Admin: 12/02/17 14:00 Dose: 3 ml Amantadine HCl (Amantadine 100 Mg Cap) 100 mg PEG BID [facility] Last Admin: 12/02/17 17:46 Dose: 100 mg Amlodipine Besylate (Norvasc) 5 mg PEG DAILY [facility] Last Admin: 12/02/17 10:46 Dose: Not Given Aspirin (Aspirin Chewable) 81 mg PEG DAILY [facility] Last Admin: 12/02/17 10:43 Dose: Not Given Calcium Carbonate (Oscal) 500 mg PO BID [facility] Last Admin: 12/02/17 21:32 Dose: 500 mg Carbidopa/Levodopa (Sinemet) 1 tab PO Q8 [facility] Last Admin: 12/02/17 22:00 Dose: 1 tab Entacapone (Comtan) 200 mg PEG Q8 [facility] Last Admin: 12/02/17 21:33 Dose: 200 mg Ergocalciferol (Drisdol 50,000 Intl Units Cap) 1 cap PO QWK [facility] Last Admin: 11/30/17 09:54 Dose: 1 cap Furosemide (Lasix) 40 mg PEG DAILY [facility] Last Admin: 12/02/17 10:44 Dose: Not Given Home Med (Diazepam [Diastat Acudial]) 1 each RC PRN PRN PRN Reason: Seizure activity Hydralazine HCl (Apresoline) 50 mg PEG Q6 [facility] Last Admin: 12/03/17 00:33 Dose: 50 mg Metronidazole (Flagyl) 500 mg in 100 mls @ 100 mls/hr IVPB Q8 [facility] PRN Reason: Protocol Last Admin: 12/02/17 21:40 Dose: 100 mls/hr Ceftriaxone Sodium 1 gm/ (Sodium Chloride) 100 mls @ 100 mls/hr IVPB Q24H [facility] PRN Reason: Protocol Last Admin: 12/02/17 16:00 Dose: 100 mls/hr Lamotrigine (Lamictal) 50 mg PO Q12 [facility] Last Admin: 12/02/17 21:33 Dose: 50 mg Magnesium Hydroxide (Milk Of Magnesia) 30 ml PEG DAILY [facility] Last Admin: 12/02/17 10:44 Dose: Not Given Memantine (Namenda) 10 mg PO DAILY [facility] Last Admin: 12/02/17 10:46 Dose: Not Given Metoprolol Tartrate (Lopressor) 25 mg PEG DAILY [facility] Last Admin: 12/02/17 10:44 Dose: Not Given Multivitamins/Vitamin C (Multi-Delyn Liquid) 5 ml PEG DAILY [facility] Last Admin: 12/02/17 10:44 Dose: Not Given Mupirocin (Bactroban Ointment) 0 gm TOP BID [facility] Last Admin: 12/02/17 17:47 Dose: 1 applic Ondansetron HCl (Zofran Tab) 4 mg PEG Q8 [facility] Last Admin: 12/02/17 21:36 Dose: 4 mg Rosuvastatin Calcium (Crestor) 10 mg PEG HS [facility] Last Admin: 12/02/17 21:32 Dose: 10 mg Simethicone (Mylicon Chew Tab) 80 mg PO QID [facility] Last Admin: 12/02/17 21:34 Dose: 80 mg - Labs Labs: 12/01/17 07:14 12/01/17 07:14 PT 12.1 SECONDS (9.7-12.2) 11/29/17 16:22 INR 1.1 11/29/17 16:22 APTT 32 SECONDS (21-34) 11/29/17 16:22 Assessment and Plan (1) Parkinsonism Status: Chronic (2) HTN (hypertension) Status: Chronic (3) Hyperlipemia Status: Chronic (4) Dementia Status: Chronic (5) UTI (urinary tract infection) Status: Chronic (6) Problem with gastrostomy tube Status: Acute (7) Seizures Status: Acute (8) Altered mental status Status: Acute (9) Vitamin D deficiency Status: Acute (10) Sleep apnea Assessment & Plan: She will need a sleep study due to inability to sleep and as it is highly prevalent in cases of Parkinsonism. Status: Acute
[2017-12-03] MEDS: metroNIDAZOLE IV 500 mg/100 ml 500 MG/100 ML BAG IVPB SCH ×2 (05:10→13:16)
[2017-12-03 08:01] VITALS: BP 122/66; PULSE 97; RESP 19; TEMP 98.5; O2SAT 97
[2017-12-03 08:14] LABS: BASO # 0.1 K/uL (0.0-0.2); BASO % 1.4 % (0.0-2.0); EOS # 0.1 K/uL (0.0-0.7); EOS % 1.8 % (0.0-4.0); HEMOGLOBIN 10.8 g/dL (11.0-16.0); LYMPH # 0.8 K/uL (1.0-4.3); LYMPH % 11.5 % (20.0-40.0); MEAN CELL VOLUME 94.9 fL (81.0-99.0); MEAN CORPUSCULAR HEMOGLOBIN 32.3 pg (27.0-31.0); MEAN CORPUSCULAR HGB CONC 34.1 g/dL (33.0-37.0); MEAN PLATELET VOLUME 8.6 fL (7.2-11.7); MONO # 0.6 K/uL (0.0-0.8); MONO % 8.5 % (0.0-10.0); NEUT # 5.1 K/uL (1.8-7.0); NEUT % 76.8 % (50.0-75.0); RBC 3.35 Mil/uL (3.80-5.20); RED CELL DISTRIBUTION WIDTH 15.8 % (11.5-14.5); WHITE BLOOD COUNT 6.7 K/uL (4.8-10.8)
[2017-12-03 08:54] LABS: ALB/GLOB RATIO 0.9 (1.0-2.1); ALBUMIN 2.4 g/dL (3.5-5.0); ALT/SGPT 29 U/L (9-52); AST/SGOT 35 U/L (14-36); BLOOD UREA NITROGEN 17 mg/dL (7-17); CALCIUM 8.5 mg/dl (8.6-10.4); GFR AFRICAN-AMERICAN > 60; GFR NON-AFRICAN AMERICAN > 60
[2017-12-03] MEDS: Multiple Vitamins Oral Solution PEG SCH (10:14)
[2017-12-03] MEDS: Simethicone 80 mg Chewtab PO SCH ×3 (10:14→17:23)
[2017-12-03] MEDS: Magnesium Hydroxide Susp 30 ml UD PEG SCH (10:16)
--- NOTE | 2017-12-03 12:03 | PN ---
DATE: 12/03/2017 LOCATION: 364, bed B. SUBJECTIVE: This is an 82-year-old female seen and examined in rounds early this morning. Case discussed with the staff on the floor without reported NG-tube leakage this morning. The entire chart is reviewed including but not limited to the most recent lab and radiology study results, current and the previous medication list, current and the previous medical events. Case discussed with the staff at length. Today's lab is still pending; however, the patient reported to have low hemoglobin and hematocrit with low albumin and low total protein. PHYSICAL EXAMINATION: GENERAL: An 82-year-old female. VITAL SIGNS: Afebrile, with pulse of 82, respiratory rate 20 to 22, blood pressure of 132/72. HEENT: Showed pale, dry, oral mucous membranes. Nonicteric sclerae. LUNGS: Few scattered crepitation. Decreased air entry at bases. HEART: Positive S1 and S2. ABDOMEN: Soft. Bowel sounds are present. The previously inserted gastrostomy tube is in place without clear evidence of leakage, resistance, or bleeding. So far, the patient is tolerating PEG feeding well. EXTREMITIES: With mild lower extremities edematous changes. No clubbing or cyanosis. NEUROLOGIC: No reported new neurological deficits, sensory or motor. No reported new focal deficits. Peripheral pulses are present bilaterally, but decreased. The patient seen and reevaluated by the neurology communications consultant on the case. IMPRESSION: 1. Hypoalbuminemia, hypoproteinemia, with malnutrition. 2. Status post gastrostomy tube insertion done before surgically at [facility]. 3. Known history of peptic ulcer disease. 4. Mild anterior abdominal wall cellulitis, improving. 5. Known history of Parkinsonian disease, bronchial asthma, seizure disorder, with hypertension. 6. Status post cholecystectomy by history. SUGGESTIONS: 1. Continue current management including IV antibiotics. 2. Subsequent increased rate of feeding as tolerated. 3. The patient may be discharged back to detention when she is more stable clinically as per the admitting MD. Dre Bell MD
--- NOTE | 2017-12-03 18:01 | CP.PCM.PN ---
Subjective - Date & Time of Evaluation Date of Evaluation: 12/03/17 Time of Evaluation: 18:01 Objective - Vital Signs/Intake and Output Vital Signs (last 24 hours): Temp Pulse Resp BP Pulse Ox 98.5 F 97 H 19 122/66 97 12/03/17 08:00 12/03/17 08:00 12/03/17 08:00 12/03/17 10:15 12/03/17 08:00 Intake and Output: 12/03/17 12/03/17 06:59 18:59 Intake Total 800 540 Output Total 300 700 Balance 500 -160 - Medications Medications: Current Medications Acetaminophen (Tylenol 325mg Tab) 650 mg PEG Q4 PRN PRN Reason: FOR PAIN Albuterol/Ipratropium (Duoneb 3 Mg/0.5 Mg (3 Ml) Ud) 3 ml IH DAILY [facility] Last Admin: 12/02/17 14:00 Dose: 3 ml Amantadine HCl (Amantadine 100 Mg Cap) 100 mg PEG BID [facility] Last Admin: 12/03/17 17:23 Dose: 100 mg Amlodipine Besylate (Norvasc) 5 mg PEG DAILY [facility] Last Admin: 12/03/17 10:14 Dose: 5 mg Aspirin (Aspirin Chewable) 81 mg PEG DAILY [facility] Last Admin: 12/03/17 10:15 Dose: 81 mg Calcium Carbonate (Oscal) 500 mg PO BID [facility] Last Admin: 12/03/17 17:24 Dose: 500 mg Carbidopa/Levodopa (Sinemet) 1 tab PO Q8 [facility] Last Admin: 12/03/17 13:27 Dose: 1 tab Entacapone (Comtan) 200 mg PEG Q8 [facility] Last Admin: 12/03/17 13:16 Dose: 200 mg Ergocalciferol (Drisdol 50,000 Intl Units Cap) 1 cap PO QWK [facility] Last Admin: 11/30/17 09:54 Dose: 1 cap Furosemide (Lasix) 40 mg PEG DAILY [facility] Last Admin: 12/03/17 10:15 Dose: 40 mg Home Med (Diazepam [Diastat Acudial]) 1 each RC PRN PRN PRN Reason: Seizure activity Hydralazine HCl (Apresoline) 50 mg PEG Q6 [facility] Last Admin: 12/03/17 17:23 Dose: 50 mg Metronidazole (Flagyl) 500 mg in 100 mls @ 100 mls/hr IVPB Q8 [facility] PRN Reason: Protocol Last Admin: 12/03/17 13:16 Dose: 100 mls/hr Lamotrigine (Lamictal) 50 mg PO Q12 [facility] Last Admin: 12/03/17 10:14 Dose: 50 mg Magnesium Hydroxide (Milk Of Magnesia) 30 ml PEG DAILY [facility] Last Admin: 12/03/17 10:16 Dose: 30 ml Memantine (Namenda) 10 mg PO DAILY [facility] Last Admin: 12/03/17 10:15 Dose: 10 mg Metoprolol Tartrate (Lopressor) 25 mg PEG DAILY [facility] Last Admin: 12/03/17 10:15 Dose: 25 mg Multivitamins/Vitamin C (Multi-Delyn Liquid) 5 ml PEG DAILY [facility] Last Admin: 12/03/17 10:14 Dose: 5 ml Mupirocin (Bactroban Ointment) 0 gm TOP BID [facility] Last Admin: 12/03/17 17:29 Dose: 1 applic Ondansetron HCl (Zofran Tab) 4 mg PEG Q8 [facility] Last Admin: 12/03/17 13:24 Dose: 4 mg Rosuvastatin Calcium (Crestor) 10 mg PEG HS [facility] Last Admin: 12/02/17 21:32 Dose: 10 mg Simethicone (Mylicon Chew Tab) 80 mg PO QID [facility] Last Admin: 12/03/17 17:23 Dose: 80 mg - Labs Labs: 12/03/17 08:03 12/03/17 08:03 PT 12.1 SECONDS (9.7-12.2) 11/29/17 16:22 INR 1.1 11/29/17 16:22 APTT 32 SECONDS (21-34) 11/29/17 16:22 Assessment and Plan - Assessment and Plan (Free Text) Assessment: PLACE UNDER THE SERVICE OF DR Laila MCMANUS AT [facility] ---CALL DR Laila MCMANUS FOR ADMITTING ORDER CONTINUE ALL YOUR HOME MEDICATION PER MED REC ACTIVITY TOLERATED TUBE FEEDING GUCERNA AT 40CC/H PER DR WILSON (GI) AND FACILITY PROTOCOL CALL DR Laila MCMANUS FOR FURTHER ORDER PLEASE ARRANGE FOLLOW UP WITH DR LARS YANG ---CALL FOR APPOINTMENT
--- NOTE | 2017-12-03 18:38 | CP.PCM.PN ---
Subjective - Date & Time of Evaluation Date of Evaluation: 12/03/17 Time of Evaluation: 18:32 - Subjective Subjective: Patient is doing better after her Gastric tube is patent and passing nutrition and medicine. She is rigid. There is no eye to eye contact today as she is sleeping There is no seizures and she is on lamictal 50 mg Q 12 HRS. She will be going back to the sn[facility] the [facility] and will come back for a sleep study and for an Upper Endoscopy and Colonoscopy due to recurrent anemia and H/O mPRBCs transfusion last week at the [facility]. She is cleared by neurology. Objective - Vital Signs/Intake and Output Vital Signs (last 24 hours): Temp Pulse Resp BP Pulse Ox 98.5 F 97 H 19 122/66 97 12/03/17 08:00 12/03/17 08:00 12/03/17 08:00 12/03/17 10:15 12/03/17 08:00 Intake and Output: 12/03/17 12/03/17 06:59 18:59 Intake Total 800 540 Output Total 300 700 Balance 500 -160 - Medications Medications: Current Medications Acetaminophen (Tylenol 325mg Tab) 650 mg PEG Q4 PRN PRN Reason: FOR PAIN Albuterol/Ipratropium (Duoneb 3 Mg/0.5 Mg (3 Ml) Ud) 3 ml IH DAILY [facility] Last Admin: 12/02/17 14:00 Dose: 3 ml Amantadine HCl (Amantadine 100 Mg Cap) 100 mg PEG BID [facility] Last Admin: 12/03/17 17:23 Dose: 100 mg Amlodipine Besylate (Norvasc) 5 mg PEG DAILY [facility] Last Admin: 12/03/17 10:14 Dose: 5 mg Aspirin (Aspirin Chewable) 81 mg PEG DAILY [facility] Last Admin: 12/03/17 10:15 Dose: 81 mg Calcium Carbonate (Oscal) 500 mg PO BID [facility] Last Admin: 12/03/17 17:24 Dose: 500 mg Carbidopa/Levodopa (Sinemet) 1 tab PO Q8 [facility] Last Admin: 12/03/17 13:27 Dose: 1 tab Entacapone (Comtan) 200 mg PEG Q8 [facility] Last Admin: 12/03/17 13:16 Dose: 200 mg Ergocalciferol (Drisdol 50,000 Intl Units Cap) 1 cap PO QWK [facility] Last Admin: 11/30/17 09:54 Dose: 1 cap Furosemide (Lasix) 40 mg PEG DAILY [facility] Last Admin: 12/03/17 10:15 Dose: 40 mg Home Med (Diazepam [Diastat Acudial]) 1 each RC PRN PRN PRN Reason: Seizure activity Hydralazine HCl (Apresoline) 50 mg PEG Q6 [facility] Last Admin: 12/03/17 17:23 Dose: 50 mg Metronidazole (Flagyl) 500 mg in 100 mls @ 100 mls/hr IVPB Q8 [facility] PRN Reason: Protocol Last Admin: 12/03/17 13:16 Dose: 100 mls/hr Lamotrigine (Lamictal) 50 mg PO Q12 [facility] Last Admin: 12/03/17 10:14 Dose: 50 mg Magnesium Hydroxide (Milk Of Magnesia) 30 ml PEG DAILY [facility] Last Admin: 12/03/17 10:16 Dose: 30 ml Memantine (Namenda) 10 mg PO DAILY [facility] Last Admin: 12/03/17 10:15 Dose: 10 mg Metoprolol Tartrate (Lopressor) 25 mg PEG DAILY [facility] Last Admin: 12/03/17 10:15 Dose: 25 mg Multivitamins/Vitamin C (Multi-Delyn Liquid) 5 ml PEG DAILY [facility] Last Admin: 12/03/17 10:14 Dose: 5 ml Mupirocin (Bactroban Ointment) 0 gm TOP BID [facility] Last Admin: 12/03/17 17:29 Dose: 1 applic Ondansetron HCl (Zofran Tab) 4 mg PEG Q8 [facility] Last Admin: 12/03/17 13:24 Dose: 4 mg Rosuvastatin Calcium (Crestor) 10 mg PEG HS [facility] Last Admin: 12/02/17 21:32 Dose: 10 mg Simethicone (Mylicon Chew Tab) 80 mg PO QID [facility] Last Admin: 12/03/17 17:23 Dose: 80 mg - Labs Labs: 12/03/17 08:03 12/03/17 08:03 PT 12.1 SECONDS (9.7-12.2) 11/29/17 16:22 INR 1.1 11/29/17 16:22 APTT 32 SECONDS (21-34) 11/29/17 16:22 Assessment and Plan (1) Parkinsonism Status: Chronic (2) HTN (hypertension) Status: Chronic (3) Hyperlipemia Status: Chronic (4) Dementia Status: Chronic (5) UTI (urinary tract infection) Status: Chronic (6) Problem with gastrostomy tube Status: Acute (7) Seizures Status: Acute (8) Altered mental status Status: Acute (9) Vitamin D deficiency Status: Acute (10) Sleep apnea Status: Acute
--- NOTE | 2017-12-03 20:19 | CP.PCM.PN ---
Subjective - Date & Time of Evaluation Date of Evaluation: 12/03/17 Time of Evaluation: 07:00 - Subjective Subjective: clinically same Objective - Vital Signs/Intake and Output Vital Signs (last 24 hours): Temp Pulse Resp BP Pulse Ox 98.5 F 97 H 19 122/66 97 12/03/17 08:00 12/03/17 08:00 12/03/17 08:00 12/03/17 10:15 12/03/17 08:00 Intake and Output: 12/03/17 12/04/17 18:59 06:59 Intake Total 540 Output Total 700 Balance -160 - Medications Medications: Current Medications Acetaminophen (Tylenol 325mg Tab) 650 mg PEG Q4 PRN PRN Reason: FOR PAIN Albuterol/Ipratropium (Duoneb 3 Mg/0.5 Mg (3 Ml) Ud) 3 ml IH DAILY [facility] Last Admin: 12/02/17 14:00 Dose: 3 ml Amantadine HCl (Amantadine 100 Mg Cap) 100 mg PEG BID [facility] Last Admin: 12/03/17 17:23 Dose: 100 mg Amlodipine Besylate (Norvasc) 5 mg PEG DAILY [facility] Last Admin: 12/03/17 10:14 Dose: 5 mg Aspirin (Aspirin Chewable) 81 mg PEG DAILY [facility] Last Admin: 12/03/17 10:15 Dose: 81 mg Calcium Carbonate (Oscal) 500 mg PO BID [facility] Last Admin: 12/03/17 17:24 Dose: 500 mg Carbidopa/Levodopa (Sinemet) 1 tab PO Q8 [facility] Last Admin: 12/03/17 13:27 Dose: 1 tab Entacapone (Comtan) 200 mg PEG Q8 [facility] Last Admin: 12/03/17 13:16 Dose: 200 mg Ergocalciferol (Drisdol 50,000 Intl Units Cap) 1 cap PO QWK [facility] Last Admin: 11/30/17 09:54 Dose: 1 cap Furosemide (Lasix) 40 mg PEG DAILY [facility] Last Admin: 12/03/17 10:15 Dose: 40 mg Home Med (Diazepam [Diastat Acudial]) 1 each RC PRN PRN PRN Reason: Seizure activity Hydralazine HCl (Apresoline) 50 mg PEG Q6 [facility] Last Admin: 12/03/17 17:23 Dose: 50 mg Metronidazole (Flagyl) 500 mg in 100 mls @ 100 mls/hr IVPB Q8 [facility] PRN Reason: Protocol Last Admin: 12/03/17 13:16 Dose: 100 mls/hr Lamotrigine (Lamictal) 50 mg PO Q12 [facility] Last Admin: 12/03/17 10:14 Dose: 50 mg Magnesium Hydroxide (Milk Of Magnesia) 30 ml PEG DAILY [facility] Last Admin: 12/03/17 10:16 Dose: 30 ml Memantine (Namenda) 10 mg PO DAILY [facility] Last Admin: 12/03/17 10:15 Dose: 10 mg Metoprolol Tartrate (Lopressor) 25 mg PEG DAILY [facility] Last Admin: 12/03/17 10:15 Dose: 25 mg Multivitamins/Vitamin C (Multi-Delyn Liquid) 5 ml PEG DAILY [facility] Last Admin: 12/03/17 10:14 Dose: 5 ml Mupirocin (Bactroban Ointment) 0 gm TOP BID [facility] Last Admin: 12/03/17 17:29 Dose: 1 applic Ondansetron HCl (Zofran Tab) 4 mg PEG Q8 [facility] Last Admin: 12/03/17 13:24 Dose: 4 mg Rosuvastatin Calcium (Crestor) 10 mg PEG HS [facility] Last Admin: 12/02/17 21:32 Dose: 10 mg Simethicone (Mylicon Chew Tab) 80 mg PO QID [facility] Last Admin: 12/03/17 17:23 Dose: 80 mg - Labs Labs: 12/03/17 08:03 12/03/17 08:03 PT 12.1 SECONDS (9.7-12.2) 11/29/17 16:22 INR 1.1 11/29/17 16:22 APTT 32 SECONDS (21-34) 11/29/17 16:22 - Constitutional Appears: Well - Head Exam Head Exam: ATRAUMATIC, NORMAL INSPECTION, NORMOCEPHALIC - Eye Exam Eye Exam: EOMI, Normal appearance, PERRL Pupil Exam: NORMAL ACCOMODATION, PERRL - ENT Exam ENT Exam: Mucous Membranes Moist, Normal Exam - Neck Exam Neck Exam: Full ROM, Normal Inspection. absent: Lymphadenopathy - Respiratory Exam Respiratory Exam: Decreased Breath Sounds - Cardiovascular Exam Cardiovascular Exam: Tachycardia, +S1, +S2 - GI/Abdominal Exam GI & Abdominal Exam: Soft, Diminished Bowel Sounds - Rectal Exam Rectal Exam: Deferred
== END 2017-12-03 20:30 | disposition home or self-care (01) | DRG 394 ==
LOC: C.ER 13:47 → C.9E 18:47 → C.3T 22:16
PROVIDERS: ADMIT Internal Medicine Nephrology; ATTEND Internal Medicine Nephrology
PROC: 0DB68ZX Excision of Stomach, Via Natural or Artificial Opening Endoscopic, Diagnostic (ICD-10-PCS; principal; 2017-12-02 10:33)
DX: K94.23 Gastrostomy malfunction (principal); L03.311 Cellulitis of abdominal wall; N39.0 Urinary tract infection, site not specified; E46 Unspecified protein-calorie malnutrition; R13.10 Dysphagia, unspecified; J45.909 Unspecified asthma, uncomplicated; I10 Essential (primary) hypertension; G47.30 Sleep apnea, unspecified; G40.909 Epilepsy, unspecified, not intractable, without status epilepticus; D64.9 Anemia, unspecified; E16.2 Hypoglycemia, unspecified; E55.9 Vitamin D deficiency, unspecified; E77.8 Other disorders of glycoprotein metabolism; E78.5 Hyperlipidemia, unspecified; F03.90 Unspecified dementia, unspecified severity, without behavioral disturbance, psychotic disturbance, mood disturbance, and anxiety; G20 Parkinson's disease; Z79.899 Other long term (current) drug therapy; Z87.01 Personal history of pneumonia (recurrent); Z87.11 Personal history of peptic ulcer disease; Z87.440 Personal history of urinary (tract) infections; Z87.891 Personal history of nicotine dependence; Z68.25 Body mass index [BMI] 25.0-25.9, adult; K21.0 Gastro-esophageal reflux disease with esophagitis; K44.9 Diaphragmatic hernia without obstruction or gangrene; R62.7 Adult failure to thrive; Y83.8 Other surgical procedures as the cause of abnormal reaction of the patient, or of later complication, without mention of misadventure at the time of the procedure

== ENCOUNTER 2017-12-16 22:22 | Inpatient (IN) | payer MEDICARE, MEDICAID ==
[2017-12-16 23:11] LABS: VENOUS BLOOD GAS PCO2 43 mmHg (40-60); VENOUS BLOOD GAS PO2 32 mm/Hg (30-55); VENOUS BLOOD PH 7.46 (7.32-7.43)
[2017-12-16 23:17] LABS: BASO % 0.1 % (0.0-2.0); EOS % 0.1 % (0.0-4.0); HEMOGLOBIN 11.8 g/dL (11.0-16.0); LYMPH # 2.1 K/uL (1.0-4.3); LYMPH % 19.1 % (20.0-40.0); MEAN CELL VOLUME 96.2 fL (81.0-99.0); MEAN CORPUSCULAR HEMOGLOBIN 32.2 pg (27.0-31.0); MEAN CORPUSCULAR HGB CONC 33.5 g/dL (33.0-37.0); MEAN PLATELET VOLUME 9.5 fL (7.2-11.7); MONO # 0.8 K/uL (0.0-0.8); MONO % 6.8 % (0.0-10.0); NEUT # 8.2 K/uL (1.8-7.0); NEUT % 73.9 % (50.0-75.0); NRBC % 0.3 % (0.0-2.0); RBC 3.66 Mil/uL (3.80-5.20); RED CELL DISTRIBUTION WIDTH 15.8 % (11.5-14.5); WHITE BLOOD COUNT 11.1 K/uL (4.8-10.8)
[2017-12-16 23:25] LABS: INR 1.3; PROTHROMBIN TIME 13.9 SECONDS (9.7-12.2)
[2017-12-16 23:27] LABS: SQUAMOUS EPITHIAL < 1 /hpf (0-5); URINE BACTERIA FEW (<OCC); URINE BILIRUBIN NEGATIVE (NEGATIVE); URINE BLOOD NEGATIVE (NEGATIVE); URINE CLARITY Hazy (Clear); URINE GLUCOSE (UA) NORMAL (Normal); URINE LEUKOCYTE ESTERASE 3+ Leu/uL (Negative); URINE PROTEIN NEGATIVE (NEGATIVE); URINE UROBILINOGEN NORMAL mg/dL (0.2-1.0)
[2017-12-16 23:28] LABS: URINE COLOR YELLOW (YELLOW)
[2017-12-16 23:32] LABS: ALB/GLOB RATIO 1.1 (1.0-2.1); ALBUMIN 3.4 g/dL (3.5-5.0)
[2017-12-16] MEDS ORDERED: Piperacillin/Tazobact 3.375 gm 100 ML IVPB STA (23:41)
[2017-12-16] MEDS ORDERED: Piperacillin/Tazobact 3.375 gm 100 ML IVPB ONE (23:51)
--- NOTE | 2017-12-16 23:55 | C.PDOC ---
Time Seen by Provider: 12/16/17 22:58 Chief Complaint (Nursing): Fever History Per: Patient, EMS, Other ([facility] records) History/Exam Limitations: clinical condition, other (Nonverbal) Onset/Duration Of Symptoms: Hrs Current Symptoms Are (Timing): Still Present Associated Symptoms: Fever Severity: Moderate Additional History Per: Assisted, Prior Records Past Medical History Reviewed: Historical Data, Nursing Documentation, Vital Signs Vital Signs: Last Vital Signs Temp 103.6 F H 12/16/17 23:11 Pulse 92 H 12/16/17 22:37 Resp 27 H 12/16/17 22:37 BP 134/73 12/16/17 22:37 Pulse Ox 100 12/16/17 22:37 - Medical History PMH: Anemia, Asthma, Dementia, HTN, Parkinson's Disease, Seizures Surgical History: Cholecystectomy - [facility] Procedures EXCISION OF STOMACH, ENDO, DIAGN (11/29/17) INTRAOPER CHOLANGIOGRAM (07/13/01) LAPAROSCOPIC CHOLECYSTECTOMY (07/13/01) Family History: States: Unknown Family Hx - Social History Hx Tobacco Use: No Hx Alcohol Use: No Hx Substance Use: No - Immunization History Hx Tetanus Toxoid Vaccination: Yes Hx Influenza Vaccination: Yes Hx Pneumococcal Vaccination: No Review Of Systems Review Of Systems: ROS cannot be obtained secondary to pt's inabilty to answer questions. Physical Exam - Physical Exam Appears: Chronically Ill, Other (Lethargic) Skin: Normal Color, Warm, Dry Head: Atraumatic Oral Mucosa: Dry Neck: Normal ROM, Supple Cardiovascular: Rhythm Regular Respiratory: Normal Breath Sounds, No Accessory Muscle Use Gastrointestinal/Abdominal: Soft, Other (G-tube in place) Neurological/Psych: No Response To Commands Pain Response: Withdraws With Pain Gait: Unable To Assess ED Course And Treatment - Laboratory Results Result Diagrams: 12/16/17 23:14 12/16/17 23:14 Interpretation Of Abnormal: UTI. Elevated BUN. Hypernatremia. Hypokalemia. ECG: Interpreted By Me, Viewed By Me ECG Rhythm: Sinus Rhythm, Nonspecific Changes ECG Interpretation: No Acute Changes Rate From EC O2 Sat by Pulse Oximetry: 100 (on NC) Pulse Ox Interpretation: Normal - Radiology CXR: Interpreted by Me, Viewed By Me CXR Interpretation: Yes: No Acute Disease, Other (rotated) Progress - Interventions Interventions:: Observation, Intravenous fluid, Oxygen - Data Reviewed Data Reviewed: Lab, Diagnostic imaging, EKG, Old records - Patient Status Patient status: Partially improved - Critical Care Citical Care: Excluding Proc Time Critical Care Time: 60 minutes - Continuity of Care Discussed patient case with:: ED Nurse, PMD - Patient Plan Patient Plan: Admission, Telemetry Disposition Discussed With DrRachel: Rafiq Celaya Comment: He accepted pt on his service and gave admitting orders to the nurse. Doctor Will See Patient In The: Hospital - Disposition Disposition: HOSPITALIZED Disposition Time: 23:59 Condition: SERIOUS - Clinical Impression Clinical Impression: Fever, UTI (urinary tract infection), Sepsis, Dehydration
[2017-12-17] MEDS ORDERED: Cefepime 1 GM in Sodium Chloride 0.9% 50 ML IVPB ONE (00:47)
[2017-12-17] MEDS: Dextrose 5%/0.45% NS 1,000 ML IV SCH (00:51)
[2017-12-17] MEDS: Azithromycin 500 MG in Sodium Chloride 0.9% 250 ML IVPB SCH (01:41)
[2017-12-17] MEDS ORDERED: Simethicone 40 mg/0.6 ml Liquid (30 ml) PEG SCH (04:00)
[2017-12-17] MEDS ORDERED: Simethicone 40 mg/0.6 ml Liquid (30 ml) PEG PRN (08:00)
[2017-12-17] MEDS: Albuterol-Ipratrop 3 mg / 0.5 (3 ml) UD IH SCH (09:14)
[2017-12-17] MEDS ORDERED: Ergocalciferol 50,000 Intl Units Cap PO SCH (10:00)
[2017-12-17] MEDS ORDERED: Enoxaparin 40 mg Syringe SC SCH ×2 (10:00)
[2017-12-17] MEDS: Carbidopa/Levodopa 25/100 CR PO SCH ×3 (10:31→17:14)
[2017-12-17] MEDS: Multiple Vitamins Oral Solution PEG SCH (10:40)
--- NOTE | 2017-12-17 11:56 | RAD ---
HISTORY: Sepsis Patient COMPARISON: No prior. FINDINGS: LUNGS: No active pulmonary disease. PLEURA: No significant pleural effusion identified, no pneumothorax apparent. 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 No acute pulmonary vascular congestion evident. OSSEOUS STRUCTURES: No significant abnormalities. VISUALIZED UPPER ABDOMEN: Normal. OTHER FINDINGS: None. IMPRESSION: No active disease.
[2017-12-17] MEDS: Enoxaparin 30 mg Syringe SC SCH (12:03)
[2017-12-17] MEDS: Magnesium Hydroxide Susp 30 ml UD PEG SCH (12:03)
--- NOTE | 2017-12-17 15:48 | CP.PCM.HP ---
Past Patient History - Past Medical History & Family History Past Medical History?: Yes - Past Social History Smoking Status: Never Smoked - CARDIAC Hx Cardiac Disorders: Yes Hx Hypertension: Yes - PULMONARY Hx Respiratory Disorders: Yes Hx Asthma: Yes - NEUROLOGICAL Hx Neurological Disorder: Yes Hx Dementia: Yes Hx Parkinson's Disease: Yes Hx Seizures: Yes - HEENT Hx HEENT Problems: No - RENAL Hx Chronic Kidney Disease: No - ENDOCRINE/METABOLIC Hx Endocrine Disorders: No - HEMATOLOGICAL/ONCOLOGICAL Hx Blood Disorders: Yes Hx Anemia: Yes - INTEGUMENTARY Hx Dermatological Problems: No - MUSCULOSKELETAL/RHEUMATOLOGICAL Hx Falls: No - GASTROINTESTINAL Hx Gastrointestinal Disorders: Yes Hx Gastroesophageal Reflux: Yes Other/Comment: dysphagia - GENITOURINARY/GYNECOLOGICAL Hx Genitourinary Disorders: Yes Hx Urinary Tract Infection: Yes - PSYCHIATRIC Hx Psychophysiologic Disorder: No Hx Substance Use: No - SURGICAL HISTORY Hx Surgeries: Yes Hx Cholecystectomy: Yes - ANESTHESIA Hx Anesthesia: Yes Hx Anesthesia Reactions: No Meds Allergies/Adverse Reactions: Allergies Allergy/AdvReac Type Severity Reaction Status Date / Time No Known Allergies Allergy Verified 11/29/17 14:10 Physical Exam - Constitutional Appears: Well - Head Exam Head Exam: ATRAUMATIC, NORMAL INSPECTION, NORMOCEPHALIC - Eye Exam Eye Exam: EOMI, Normal appearance, PERRL Pupil Exam: NORMAL ACCOMODATION, PERRL - ENT Exam ENT Exam: Mucous Membranes Moist, Normal Exam - Neck Exam Neck exam: Positive for: Normal Inspection - Respiratory Exam Respiratory Exam: Decreased Breath Sounds - Cardiovascular Exam Cardiovascular Exam: REGULAR RHYTHM, +S1, +S2 - GI/Abdominal Exam GI & Abdominal Exam: Diminished Bowel Sounds, Soft - Rectal Exam Rectal Exam: Deferred Results - Vital Signs Recent Vital Signs: Last Vital Signs Temp 98 F 12/17/17 09:00 Pulse 85 12/17/17 09:19 Resp 20 12/17/17 07:00 BP 139/71 12/17/17 10:30 Pulse Ox 98 12/17/17 07:00 - Labs Result Diagrams: 12/16/17 23:14 12/16/17 23:14 Labs: Laboratory Results - last 24 hr 12/16/17 12/16/17 12/16/17 23:03 23:14 23:14 WBC 11.1 H D RBC 3.66 L Hgb 11.8 Hct 35.2 MCV 96.2 MCH 32.2 H MCHC 33.5 RDW 15.8 H Plt Count 227 MPV 9.5 Neut % (Auto) 73.9 Lymph % (Auto) 19.1 L [place] % (Auto) 6.8 Eos % (Auto) 0.1 Baso % (Auto) 0.1 Neut # (Auto) 8.2 H Lymph # (Auto) 2.1 [place] # (Auto) 0.8 Eos # (Auto) 0.0 Baso # (Auto) 0.0 PT 13.9 H INR 1.3 APTT 33 pO2 32 VBG pH 7.46 H VBG pCO2 43 VBG HCO3 28.8 VBG Total CO2 31.9 H VBG O2 Sat (Calc) 67.7 H VBG Base Excess 6.0 H VBG Potassium 5.3 H Sodium 153.0 H Chloride 116.0 H Glucose 179 H Lactate 2.1 FiO2 21.0 Potassium Carbon Dioxide Anion Gap BUN Creatinine Est GFR ( Amer) Est GFR (Non-Af Amer) Random Glucose Lactic Acid Calcium Phosphorus Magnesium Total Bilirubin AST ALT Alkaline Phosphatase Total Protein Albumin Globulin Albumin/Globulin Ratio Venous Blood Potassium 5.3 H Urine Color Urine Clarity Urine pH Ur Specific [place] Urine Protein Urine Glucose (UA) Urine Ketones Urine Blood Urine Nitrate Urine Bilirubin Urine Urobilinogen Ur Leukocyte Esterase Urine WBC (Auto) Urine RBC (Auto) Ur Squamous Epith Cells Urine Bacteria 12/16/17 12/16/17 12/17/17 23:14 23:14 02:13 WBC RBC Hgb Hct MCV MCH MCHC RDW Plt Count MPV Neut % (Auto) Lymph % (Auto) [place] % (Auto) Eos % (Auto) Baso % (Auto) Neut # (Auto) Lymph # (Auto) [place] # (Auto) Eos # (Auto) Baso # (Auto) PT INR APTT pO2 VBG pH VBG pCO2 VBG HCO3 VBG Total CO2 VBG O2 Sat (Calc) VBG Base Excess VBG Potassium Sodium 157 H Chloride 118 H Glucose Lactate FiO2 Potassium 2.8 L Carbon Dioxide 28 Anion Gap 13 BUN 67 H Creatinine 1.2 Est GFR ( Amer) 52 Est GFR (Non-Af Amer) 43 Random Glucose 174 H Lactic Acid 1.6 Calcium 9.0 Phosphorus 4.2 Magnesium 2.8 H Total Bilirubin 0.8 AST 170 H D ALT 63 H D Alkaline Phosphatase 80 Total Protein 6.6 Albumin 3.4 L D Globulin 3.2 Albumin/Globulin Ratio 1.1 Venous Blood Potassium Urine Color Yellow Urine Clarity Hazy Urine pH 5.0 Ur Specific [place] 1.018 Urine Protein Negative Urine Glucose (UA) Normal Urine Ketones Negative Urine Blood Negative Urine Nitrate Negative Urine Bilirubin Negative Urine Urobilinogen Normal Ur Leukocyte Esterase 3+ H Urine WBC (Auto) 14 H Urine RBC (Auto) 7 H Ur Squamous Epith Cells < 1 Urine Bacteria Few H
--- NOTE | 2017-12-17 17:44 | CP.PCM.CON ---
Past Patient History - Past Medical History & Family History Past Medical History?: Yes - Past Social History Smoking Status: Never Smoked - CARDIAC Hx Cardiac Disorders: Yes Hx Hypertension: Yes - PULMONARY Hx Respiratory Disorders: Yes Hx Asthma: Yes - NEUROLOGICAL Hx Neurological Disorder: Yes Hx Dementia: Yes Hx Parkinson's Disease: Yes Hx Seizures: Yes - HEENT Hx HEENT Problems: No - RENAL Hx Chronic Kidney Disease: No - ENDOCRINE/METABOLIC Hx Endocrine Disorders: No - HEMATOLOGICAL/ONCOLOGICAL Hx Blood Disorders: Yes Hx Anemia: Yes - INTEGUMENTARY Hx Dermatological Problems: No - MUSCULOSKELETAL/RHEUMATOLOGICAL Hx Falls: No - GASTROINTESTINAL Hx Gastrointestinal Disorders: Yes Hx Gastroesophageal Reflux: Yes Other/Comment: dysphagia - GENITOURINARY/GYNECOLOGICAL Hx Genitourinary Disorders: Yes Hx Urinary Tract Infection: Yes - PSYCHIATRIC Hx Psychophysiologic Disorder: No Hx Substance Use: No - SURGICAL HISTORY Hx Surgeries: Yes Hx Cholecystectomy: Yes - ANESTHESIA Hx Anesthesia: Yes Hx Anesthesia Reactions: No Meds Allergies/Adverse Reactions: Allergies Allergy/AdvReac Type Severity Reaction Status Date / Time No Known Allergies Allergy Verified 11/29/17 14:10 - Medications Medications: Current Medications Acetaminophen (Tylenol 325mg Tab) 650 mg PEG Q4 [facility] Last Admin: 12/17/17 17:14 Dose: 650 mg Albuterol/Ipratropium (Duoneb 3 Mg/0.5 Mg (3 Ml) Ud) 3 ml IH DAILY [facility] Last Admin: 12/17/17 09:14 Dose: 3 ml Amantadine HCl (Amantadine 100 Mg Cap) 100 mg PO BID [facility] Last Admin: 12/17/17 17:14 Dose: 100 mg Amlodipine Besylate (Norvasc) 5 mg PEG DAILY [facility] Last Admin: 12/17/17 10:30 Dose: 5 mg Aspirin (Aspirin Chewable) 81 mg PEG DAILY [facility] Last Admin: 12/17/17 10:30 Dose: 81 mg Calcium Carbonate (Oscal) 500 mg PO BID [facility] Last Admin: 12/17/17 17:20 Dose: 500 mg Carbidopa/Levodopa (Sinemet Cr) 1 tab PO TID [facility] Last Admin: 12/17/17 17:14 Dose: 1 tab Enoxaparin Sodium (Lovenox) 30 mg SC DAILY [facility] Last Admin: 12/17/17 12:03 Dose: 30 mg Entacapone (Comtan) 200 mg PEG Q8 [facility] Last Admin: 12/17/17 13:09 Dose: 200 mg Ergocalciferol (Drisdol 50,000 Intl Units Cap) 1 cap PO QWK [facility] Last Admin: 12/17/17 12:06 Dose: 1 cap Furosemide (Lasix) 40 mg PEG DAILY [facility] Last Admin: 12/17/17 10:30 Dose: 40 mg Hydralazine HCl (Apresoline) 50 mg PEG Q6 [facility] Last Admin: 12/17/17 17:20 Dose: 50 mg Dextrose/Sodium Chloride (Dextrose 5%/0.45% Ns 1000 Ml) 1,000 mls @ 40 mls/hr IV .Q24H [facility] Last Admin: 12/17/17 00:51 Dose: 40 mls/hr Azithromycin 500 mg/ Sodium (Chloride) 250 mls @ 250 mls/hr IVPB Q24H [facility] PRN Reason: Protocol Last Admin: 12/17/17 01:41 Dose: 250 mls/hr Lamotrigine (Lamictal) 25 mg PO Q12 [facility] Last Admin: 12/17/17 10:31 Dose: 25 mg Magnesium Hydroxide (Milk Of Magnesia) 30 ml PEG DAILY [facility] Last Admin: 12/17/17 12:03 Dose: 30 ml Memantine (Namenda) 10 mg PO DAILY [facility] Last Admin: 12/17/17 10:30 Dose: 10 mg Metoprolol Tartrate (Lopressor) 25 mg PEG DAILY [facility] Last Admin: 12/17/17 10:30 Dose: 25 mg Multivitamins/Vitamin C (Multi-Delyn Liquid) 5 ml PEG DAILY [facility] Last Admin: 12/17/17 10:40 Dose: 5 ml Mupirocin (Bactroban Ointment) 0 gm TOP BID [facility] Last Admin: 12/17/17 17:16 Dose: 1 appl Ondansetron HCl (Zofran Tab) 4 mg PEG Q8 [facility] Last Admin: 12/17/17 13:09 Dose: 4 mg Pantoprazole Sodium (Protonix Inj) 40 mg IVP DAILY [facility] Last Admin: 12/17/17 10:24 Dose: 40 mg Rosuvastatin Calcium (Crestor) 10 mg PEG HS [facility] Simethicone (Mylicon Liq) 80 mg PEG Q8 PRN PRN Reason: GAS Results - Vital Signs Recent Vital Signs: Last Vital Signs Temp 97.2 F L 12/17/17 17:16 Pulse 80 12/17/17 17:16 Resp 18 12/17/17 17:16 BP 126/62 12/17/17 17:16 Pulse Ox 99 12/17/17 17:16 - Labs Result Diagrams: 12/16/17 23:14 12/16/17 23:14 Labs: Laboratory Results - last 24 hr 12/16/17 12/16/17 12/16/17 23:03 23:14 23:14 WBC 11.1 H D RBC 3.66 L Hgb 11.8 Hct 35.2 MCV 96.2 MCH 32.2 H MCHC 33.5 RDW 15.8 H Plt Count 227 MPV 9.5 Neut % (Auto) 73.9 Lymph % (Auto) 19.1 L [place] % (Auto) 6.8 Eos % (Auto) 0.1 Baso % (Auto) 0.1 Neut # (Auto) 8.2 H Lymph # (Auto) 2.1 [place] # (Auto) 0.8 Eos # (Auto) 0.0 Baso # (Auto) 0.0 PT 13.9 H INR 1.3 APTT 33 pO2 32 VBG pH 7.46 H VBG pCO2 43 VBG HCO3 28.8 VBG Total CO2 31.9 H VBG O2 Sat (Calc) 67.7 H VBG Base Excess 6.0 H VBG Potassium 5.3 H Sodium 153.0 H Chloride 116.0 H Glucose 179 H Lactate 2.1 FiO2 21.0 Potassium Carbon Dioxide Anion Gap BUN Creatinine Est GFR ( Amer) Est GFR (Non-Af Amer) Random Glucose Lactic Acid Calcium Phosphorus Magnesium Total Bilirubin AST ALT Alkaline Phosphatase Total Protein Albumin Globulin Albumin/Globulin Ratio Venous Blood Potassium 5.3 H Urine Color Urine Clarity Urine pH Ur Specific [place] Urine Protein Urine Glucose (UA) Urine Ketones Urine Blood Urine Nitrate Urine Bilirubin Urine Urobilinogen Ur Leukocyte Esterase Urine WBC (Auto) Urine RBC (Auto) Ur Squamous Epith Cells Urine Bacteria 12/16/17 12/16/17 12/17/17 23:14 23:14 02:13 WBC RBC Hgb Hct MCV MCH MCHC RDW Plt Count MPV Neut % (Auto) Lymph % (Auto) [place] % (Auto) Eos % (Auto) Baso % (Auto) Neut # (Auto) Lymph # (Auto) [place] # (Auto) Eos # (Auto) Baso # (Auto) PT INR APTT pO2 VBG pH VBG pCO2 VBG HCO3 VBG Total CO2 VBG O2 Sat (Calc) VBG Base Excess VBG Potassium Sodium 157 H Chloride 118 H Glucose Lactate FiO2 Potassium 2.8 L Carbon Dioxide 28 Anion Gap 13 BUN 67 H Creatinine 1.2 Est GFR ( Amer) 52 Est GFR (Non-Af Amer) 43 Random Glucose 174 H Lactic Acid 1.6 Calcium 9.0 Phosphorus 4.2 Magnesium 2.8 H Total Bilirubin 0.8 AST 170 H D ALT 63 H D Alkaline Phosphatase 80 Total Protein 6.6 Albumin 3.4 L D Globulin 3.2 Albumin/Globulin Ratio 1.1 Venous Blood Potassium Urine Color Yellow Urine Clarity Hazy Urine pH 5.0 Ur Specific [place] 1.018 Urine Protein Negative Urine Glucose (UA) Normal Urine Ketones Negative Urine Blood Negative Urine Nitrate Negative Urine Bilirubin Negative Urine Urobilinogen Normal Ur Leukocyte Esterase 3+ H Urine WBC (Auto) 14 H Urine RBC (Auto) 7 H Ur Squamous Epith Cells < 1 Urine Bacteria Few H
[2017-12-18] MEDS: Acetaminophen 650mg/20.3ml solution UD PEG SCH ×6 (00:08→21:29)
[2017-12-18] MEDS: Azithromycin 500 MG in Sodium Chloride 0.9% 250 ML IVPB SCH (00:09)
[2017-12-18 07:00] LABS: BASO % 0.1 % (0.0-2.0); HEMOGLOBIN 11.5 g/dL (11.0-16.0); LYMPH # 2.7 K/uL (1.0-4.3); LYMPH % 18.7 % (20.0-40.0); MEAN CELL VOLUME 96.5 fL (81.0-99.0); MEAN CORPUSCULAR HEMOGLOBIN 32.7 pg (27.0-31.0); MEAN CORPUSCULAR HGB CONC 33.9 g/dL (33.0-37.0); MONO # 0.8 K/uL (0.0-0.8); MONO % 5.8 % (0.0-10.0); NEUT # 10.7 K/uL (1.8-7.0); NEUT % 75.4 % (50.0-75.0); NRBC % 0.3 % (0.0-2.0); RBC 3.52 Mil/uL (3.80-5.20); RED CELL DISTRIBUTION WIDTH 15.7 % (11.5-14.5); WHITE BLOOD COUNT 14.2 K/uL (4.8-10.8)
[2017-12-18 07:30] LABS: ALB/GLOB RATIO 1.1 (1.0-2.1); ALBUMIN 3.2 g/dL (3.5-5.0); ALT/SGPT 84 U/L (9-52); AST/SGOT 64 U/L (14-36); BLOOD UREA NITROGEN 48 mg/dL (7-17); CALCIUM 8.9 mg/dl (8.6-10.4); GFR AFRICAN-AMERICAN > 60; GFR NON-AFRICAN AMERICAN > 60
[2017-12-18] MEDS: Albuterol-Ipratrop 3 mg / 0.5 (3 ml) UD IH SCH (07:43)
[2017-12-18] MEDS: Dextrose 5%/0.45% NS 1,000 ML IV SCH (08:45)
[2017-12-18] MEDS: Carbidopa/Levodopa 25/100 CR PO SCH ×3 (09:52→17:26)
[2017-12-18] MEDS: Amantadine 50 mg/5 ml Syrup (473 ml) PEG SCH ×2 (09:52→17:27)
[2017-12-18] MEDS: Enoxaparin 30 mg Syringe SC SCH (09:52)
[2017-12-18] MEDS: Magnesium Hydroxide Susp 30 ml UD PEG SCH (10:04)
[2017-12-18] MEDS: Multiple Vitamins Oral Solution PEG SCH (10:20)
[2017-12-18] MEDS ORDERED: Pantoprazole 40 mg EC Tab PO SCH (10:30)
[2017-12-18] MEDS: metroNIDAZOLE IV 500 mg/100 ml 500 MG/100 ML BAG IVPB SCH ×2 (12:59→21:31)
--- NOTE | 2017-12-18 16:15 | PN ---
DATE: LOCATION: 669, bed B. SUBJECTIVE: This is an 82-year-old female, nonverbal, seen initially for GI consultation as requested by the admitting medical staff on 12/17/2017, reexamined again today. The patient is nonverbal and was reported to have abnormal leakage of the recently inserted gastrostomy tube without reported active bleeding. Case discussed at length with the staff in the floor as well as the admitting medical team. The entire chart is reviewed including but not limited to the most recent lab and radiology study results, current and the previous medication list, current and the previous medical events. Today's lab showed white blood cells of 14.2 with normal hemoglobin and hematocrit as well as normal platelet count with sodium 152, BUN of 48 but creatinine is normal indicative of dehydration with blood glucose level 203, AST 64, ALT 84, albumin 3.2, low total protein of 6.1. Most recently done chest x-ray at the time of the admission, report is seen indicative of no active disease. PHYSICAL EXAMINATION: GENERAL: A 82-year-old female. VITAL SIGNS: Afebrile with heart rate of 96, respiratory rate 20-22, blood pressure of 128/72. HEENT: Showed pale, dry mucous membranes. Nonicteric sclerae. LUNGS: A few scattered crepitation. Decreased air entry at bases. HEART: Positive S1 and S2 with increased rate. No mass or organomegaly. No rebound tenderness or guarding. The previously inserted gastrostomy tube is in place with mild leakage and partial malfunction. EXTREMITIES: With lower extremity edematous changes. No clubbing or cyanosis. NEUROLOGIC: No reported new neurological deficits, sensory or motor. IMPRESSION: 1. Malfunction of a gastrostomy tube inserted surgically most likely. 2. Malnutrition with hypoalbuminemia, hypoproteinemia. 3. Known history but not limited to dementia, parkinsonian disease, bronchial asthma, hypertension, seizure disorder. 4. Known history of status post cholecystectomy. 5. Known history of peptic ulcer disease. 6. Anemia by recent history. 7. Electrolyte imbalance with hypernatremia. SUGGESTION: 1. Agree with your plan. 2. Flat and upright abdominal x-ray. 3. Surgical reevaluation. 4. Endoscopic evaluation of the upper GI tract for location of the previously inserted gastrostomy tube in the gastric cavity. We will discuss the case with the admitting medical staff. Dre Bell MD
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
--- NOTE | 2017-12-18 18:12 | CP.PCM.PN ---
Subjective - Date & Time of Evaluation Date of Evaluation: 12/18/17 Time of Evaluation: 11:40 - Subjective Subjective: clinically same Objective - Vital Signs/Intake and Output Vital Signs (last 24 hours): Temp Pulse Resp BP Pulse Ox 98.3 F 84 18 123/55 L 98 12/18/17 15:12 12/18/17 15:12 12/18/17 15:12 12/18/17 15:12 12/18/17 15:12 Intake and Output: 12/18/17 12/18/17 06:59 18:59 Intake Total 640 680 Output Total 600 700 Balance 40 -20 - Medications Medications: Current Medications Acetaminophen (Tylenol 650mg/20.3ml Solution Ud) 650 mg PEG Q4 [facility] Last Admin: 12/18/17 17:26 Dose: 650 mg Albuterol/Ipratropium (Duoneb 3 Mg/0.5 Mg (3 Ml) Ud) 3 ml IH RQ24 [facility] Amantadine HCl (Symmetrel) 100 mg PEG BID [facility] Last Admin: 12/18/17 17:27 Dose: 100 mg Amlodipine Besylate (Norvasc) 5 mg PEG DAILY [facility] Last Admin: 12/18/17 10:00 Dose: 5 mg Aspirin (Aspirin Chewable) 81 mg PEG DAILY [facility] Last Admin: 12/18/17 10:00 Dose: 81 mg Calcium Carbonate (Oscal) 500 mg PO BID [facility] Last Admin: 12/18/17 17:26 Dose: 500 mg Carbidopa/Levodopa (Sinemet Cr) 1 tab PO TID [facility] Last Admin: 12/18/17 17:26 Dose: 1 tab Enoxaparin Sodium (Lovenox) 30 mg SC DAILY [facility] Last Admin: 12/18/17 09:52 Dose: 30 mg Entacapone (Comtan) 200 mg PEG Q8 [facility] Last Admin: 12/18/17 12:59 Dose: 200 mg Ergocalciferol (Drisdol 50,000 Intl Units Cap) 1 cap PO QWK [facility] Last Admin: 12/17/17 12:06 Dose: 1 cap Furosemide (Lasix) 40 mg PEG DAILY [facility] Last Admin: 12/18/17 09:52 Dose: 40 mg Hydralazine HCl (Apresoline) 50 mg PEG Q6 [facility] Last Admin: 12/18/17 17:26 Dose: 50 mg Dextrose/Sodium Chloride (Dextrose 5%/0.45% Ns 1000 Ml) 1,000 mls @ 40 mls/hr IV .Q24H [facility] Last Admin: 12/18/17 08:45 Dose: 40 mls/hr Vancomycin/Sodium Chloride (Vancomycin 1 Gm/Ns 200 Ml) 1 gm in 200 mls @ 167 mls/hr IVPB Q24H [facility] PRN Reason: Protocol Stop: 12/24/17 14:01 Metronidazole (Flagyl) 500 mg in 100 mls @ 100 mls/hr IVPB Q8 [facility] PRN Reason: Protocol Last Admin: 12/18/17 12:59 Dose: 100 mls/hr Piperacillin Sod/Tazobactam Sod (Zosyn 3.375 Gm Iv Premix) 3.375 gm in 50 mls @ 100 mls/hr IVPB Q8H [facility] PRN Reason: Protocol Lamotrigine (Lamictal) 25 mg PEG Q12 [facility] Last Admin: 12/18/17 09:52 Dose: 25 mg Magnesium Hydroxide (Milk Of Magnesia) 30 ml PEG DAILY [facility] Last Admin: 12/18/17 10:04 Dose: 30 ml Memantine (Namenda) 10 mg PEG DAILY [facility] Last Admin: 12/18/17 10:20 Dose: 10 mg Metoprolol Tartrate (Lopressor) 25 mg PEG DAILY [facility] Last Admin: 12/18/17 09:51 Dose: 25 mg Multivitamins/Vitamin C (Multi-Delyn Liquid) 5 ml PEG DAILY [facility] Last Admin: 12/18/17 10:20 Dose: 5 ml Mupirocin (Bactroban Ointment) 0 gm TOP BID [facility] Last Admin: 12/18/17 10:20 Dose: 1 appl Ondansetron HCl (Zofran Tab) 4 mg PEG Q8 [facility] Last Admin: 12/18/17 12:59 Dose: 4 mg Pantoprazole Sodium (Protonix Ec Tab) 40 mg PO DAILY [facility] Last Admin: 12/18/17 11:54 Dose: Not Given Rosuvastatin Calcium (Crestor) 10 mg PEG HS [facility] Last Admin: 12/17/17 21:37 Dose: Not Given Simethicone (Mylicon Liq) 80 mg PEG Q8 PRN PRN Reason: GAS - Labs Labs: 12/18/17 06:53 12/18/17 06:53 PT 13.9 SECONDS (9.7-12.2) H 12/16/17 23:14 INR 1.3 12/16/17 23:14 APTT 33 SECONDS (21-34) 12/16/17 23:14 - Constitutional Appears: Well - Head Exam Head Exam: ATRAUMATIC, NORMAL INSPECTION, NORMOCEPHALIC - Eye Exam Eye Exam: EOMI, Normal appearance, PERRL Pupil Exam: NORMAL ACCOMODATION, PERRL - ENT Exam ENT Exam: Mucous Membranes Moist, Normal Exam - Neck Exam Neck Exam: Full ROM, Normal Inspection. absent: Lymphadenopathy - Respiratory Exam Respiratory Exam: Decreased Breath Sounds - Cardiovascular Exam Cardiovascular Exam: REGULAR RHYTHM, +S1, +S2 - GI/Abdominal Exam GI & Abdominal Exam: Soft, Diminished Bowel Sounds - Rectal Exam Rectal Exam: Deferred
[2017-12-18] MEDS: Piperacill/Tazo 3.375gm in Dex 3.375 GM/50 ML BAG IVPB SCH (21:32)
[2017-12-19] MEDS: Dextrose 5%/0.45% NS 1,000 ML IV SCH (00:45)
[2017-12-19] MEDS: Piperacill/Tazo 3.375gm in Dex 3.375 GM/50 ML BAG IVPB SCH ×3 (02:13→18:49)
[2017-12-19] MEDS: Acetaminophen 650mg/20.3ml solution UD PEG SCH ×6 (04:19→21:56)
[2017-12-19] MEDS: metroNIDAZOLE IV 500 mg/100 ml 500 MG/100 ML BAG IVPB SCH ×3 (05:29→22:42)
[2017-12-19] MEDS: Albuterol-Ipratrop 3 mg / 0.5 (3 ml) UD IH SCH (07:17)
[2017-12-19] MEDS: Amantadine 50 mg/5 ml Syrup (473 ml) PEG SCH ×2 (10:34→18:44)
[2017-12-19] MEDS: Pantoprazole 40 mg Susp UD PO SCH (10:34)
[2017-12-19] MEDS: Multiple Vitamins Oral Solution PEG SCH (10:34)
[2017-12-19] MEDS: Enoxaparin 30 mg Syringe SC SCH (10:34)
[2017-12-19] MEDS: Carbidopa/Levodopa 25/100 CR PO SCH (10:39)
[2017-12-19] MEDS: Magnesium Hydroxide Susp 30 ml UD PEG SCH (10:41)
[2017-12-19] MEDS ORDERED: Vancomycin 1 gm/NS 200 ml 1 GM/200 ML BAG IVPB SCH (14:00)
--- NOTE | 2017-12-19 14:27 | CP.PCM.PN ---
Subjective - Date & Time of Evaluation Date of Evaluation: 12/19/17 Time of Evaluation: 12:00 - Subjective Subjective: clinically same Objective - Vital Signs/Intake and Output Vital Signs (last 24 hours): Temp Pulse Resp BP Pulse Ox 98.0 F 76 20 122/74 100 12/19/17 08:43 12/19/17 11:23 12/19/17 08:43 12/19/17 10:35 12/19/17 08:43 Intake and Output: 12/19/17 12/19/17 06:59 18:59 Output Total 200 Balance -200 - Medications Medications: Current Medications Acetaminophen (Tylenol 650mg/20.3ml Solution Ud) 650 mg PEG Q4 [facility] Last Admin: 12/19/17 12:30 Dose: 650 mg Albuterol/Ipratropium (Duoneb 3 Mg/0.5 Mg (3 Ml) Ud) 3 ml IH RQ24 [facility] Last Admin: 12/19/17 07:17 Dose: 3 ml Amantadine HCl (Symmetrel) 100 mg PEG BID [facility] Last Admin: 12/19/17 10:34 Dose: 100 mg Amlodipine Besylate (Norvasc) 5 mg PEG DAILY [facility] Last Admin: 12/19/17 10:35 Dose: 5 mg Aspirin (Aspirin Chewable) 81 mg PEG DAILY [facility] Last Admin: 12/19/17 10:35 Dose: 81 mg Calcium Carbonate (Oscal) 500 mg PO BID [facility] Last Admin: 12/19/17 10:35 Dose: 500 mg Carbidopa/Levodopa (Sinemet) 1 tab GT TID [facility] Last Admin: 12/19/17 13:06 Dose: 1 tab Enoxaparin Sodium (Lovenox) 30 mg SC DAILY [facility] Last Admin: 12/19/17 10:34 Dose: 30 mg Entacapone (Comtan) 200 mg PEG Q8 [facility] Last Admin: 12/19/17 13:06 Dose: 200 mg Ergocalciferol (Drisdol 50,000 Intl Units Cap) 1 cap PO QWK [facility] Last Admin: 12/17/17 12:06 Dose: 1 cap Furosemide (Lasix) 40 mg PEG DAILY [facility] Last Admin: 12/19/17 10:34 Dose: 40 mg Hydralazine HCl (Apresoline) 50 mg PEG Q6 [facility] Last Admin: 12/19/17 12:30 Dose: 50 mg Dextrose/Sodium Chloride (Dextrose 5%/0.45% Ns 1000 Ml) 1,000 mls @ 40 mls/hr IV .Q24H [facility] Last Admin: 12/19/17 00:45 Dose: Not Given Vancomycin/Sodium Chloride (Vancomycin 1 Gm/Ns 200 Ml) 1 gm in 200 mls @ 167 mls/hr IVPB Q24H [facility] PRN Reason: Protocol Stop: 12/24/17 14:01 Last Admin: 12/19/17 13:14 Dose: 167 mls/hr Metronidazole (Flagyl) 500 mg in 100 mls @ 100 mls/hr IVPB Q8 [facility] PRN Reason: Protocol Last Admin: 12/19/17 13:05 Dose: 100 mls/hr Piperacillin Sod/Tazobactam Sod (Zosyn 3.375 Gm Iv Premix) 3.375 gm in 50 mls @ 100 mls/hr IVPB Q8H [facility] PRN Reason: Protocol Last Admin: 12/19/17 10:27 Dose: 100 mls/hr Lamotrigine (Lamictal) 25 mg PEG Q12 [facility] Last Admin: 12/19/17 10:34 Dose: 25 mg Magnesium Hydroxide (Milk Of Magnesia) 30 ml PEG DAILY [facility] Last Admin: 12/19/17 10:41 Dose: 30 ml Memantine (Namenda) 10 mg PEG DAILY [facility] Last Admin: 12/19/17 10:39 Dose: 10 mg Metoprolol Tartrate (Lopressor) 25 mg PEG DAILY [facility] Last Admin: 12/19/17 10:35 Dose: 25 mg Multivitamins/Vitamin C (Multi-Delyn Liquid) 5 ml PEG DAILY [facility] Last Admin: 12/19/17 10:34 Dose: 5 ml Mupirocin (Bactroban Ointment) 0 gm TOP BID [facility] Last Admin: 12/19/17 10:40 Dose: 1 appl Ondansetron HCl (Zofran Tab) 4 mg PEG Q8 [facility] Last Admin: 12/19/17 13:06 Dose: 4 mg Pantoprazole Sodium (Protonix Susp) 40 mg PO DAILY [facility] Last Admin: 12/19/17 10:34 Dose: 40 mg Rosuvastatin Calcium (Crestor) 10 mg PEG HS [facility] Last Admin: 12/18/17 21:27 Dose: 10 mg Simethicone (Mylicon Liq) 80 mg PEG Q8 PRN PRN Reason: GAS - Labs Labs: 12/18/17 06:53 12/18/17 06:53 PT 13.9 SECONDS (9.7-12.2) H 12/16/17 23:14 INR 1.3 12/16/17 23:14 APTT 33 SECONDS (21-34) 12/16/17 23:14 - Constitutional Appears: Well - Head Exam Head Exam: ATRAUMATIC, NORMAL INSPECTION, NORMOCEPHALIC - Eye Exam Eye Exam: EOMI, Normal appearance, PERRL Pupil Exam: NORMAL ACCOMODATION, PERRL - ENT Exam ENT Exam: Mucous Membranes Moist, Normal Exam - Neck Exam Neck Exam: Full ROM, Normal Inspection. absent: Lymphadenopathy - Respiratory Exam Respiratory Exam: Decreased Breath Sounds - Cardiovascular Exam Cardiovascular Exam: REGULAR RHYTHM, +S1, +S2 - GI/Abdominal Exam GI & Abdominal Exam: Soft, Diminished Bowel Sounds - Rectal Exam Rectal Exam: Deferred
--- NOTE | 2017-12-19 15:11 | PN ---
DATE: LOCATION: [facility], bed B SUBJECTIVE: The patient is an 82-year-old female seen and examined in rounds early today without significant clinical changes, was reported again malfunction of the PEG tube, with leakage but less than before. Today's lab results is still pending, but yesterday's lab results showed normal hemoglobin and hematocrit with leukocytosis with increased BUN, sodium and blood glucose level with mildly elevated liver function test with low albumin. PHYSICAL EXAMINATION: GENERAL: An 82-year-old female, nonverbal. VITAL SIGNS: Afebrile with heart rate of 94, respiratory rate 20 to 22, blood pressure 120/76. HEENT: Showed pale, dry oral mucous membranes. Nonicteric sclerae. LUNGS: Few scattered crepitation. Decreased air entry at bases. HEART: Positive S1 and S2. ABDOMEN: Soft with mild distention, mildly obese, have previously inserted gastrostomy tube, seen again with some mucoid and fecal material leakage around the stoma, not significant. No mass or organomegaly. No rebound tenderness or guarding. EXTREMITIES: With edematous changes. No clubbing or cyanosis. NEUROLOGIC: No reported new neurological deficits, sensory or motor. IMPRESSION: 1. Dysfunction of previously inserted gastrotomy tube with leakage and evidence of mild anterior abdominal wall cellulitis. 2. Dysphagia. 3. Malnutrition with hypoalbuminemia. 4. Known history of, but not limited to Parkinsonian disease, hypertension, bronchial asthma, dementia with seizure disorder. 5. Status post cholecystectomy by history. 6. Peptic ulcer disease by history. 7. Electrolyte imbalance with hypernatremia. 8. Anemia by recent history. SUGGESTION: 1. Continue current management. 2. Sectional abdominal and pelvic CAT scan. 3. Central hyperalimentation. 4. The patient will need surgical consultation for evaluation of the previously inserted gastrostomy tube. 5. Further recommendation to follow. Dre Bell MD
--- NOTE | 2017-12-19 15:35 | CP.PCM.PN ---
Subjective - Date & Time of Evaluation Date of Evaluation: 12/19/17 Time of Evaluation: 15:35 Objective - Vital Signs/Intake and Output Vital Signs (last 24 hours): Temp Pulse Resp BP Pulse Ox 98.0 F 76 20 122/74 100 12/19/17 08:43 12/19/17 11:23 12/19/17 08:43 12/19/17 10:35 12/19/17 08:43 Intake and Output: 12/19/17 12/19/17 06:59 18:59 Intake Total 950 Output Total 200 Balance -200 950 - Medications Medications: Current Medications Acetaminophen (Tylenol 650mg/20.3ml Solution Ud) 650 mg PEG Q4 [facility] Last Admin: 12/19/17 12:30 Dose: 650 mg Albuterol/Ipratropium (Duoneb 3 Mg/0.5 Mg (3 Ml) Ud) 3 ml IH RQ24 [facility] Last Admin: 12/19/17 07:17 Dose: 3 ml Amantadine HCl (Symmetrel) 100 mg PEG BID [facility] Last Admin: 12/19/17 10:34 Dose: 100 mg Amlodipine Besylate (Norvasc) 5 mg PEG DAILY [facility] Last Admin: 12/19/17 10:35 Dose: 5 mg Aspirin (Aspirin Chewable) 81 mg PEG DAILY [facility] Last Admin: 12/19/17 10:35 Dose: 81 mg Calcium Carbonate (Oscal) 500 mg PO BID [facility] Last Admin: 12/19/17 10:35 Dose: 500 mg Carbidopa/Levodopa (Sinemet) 1 tab GT TID [facility] Last Admin: 12/19/17 13:06 Dose: 1 tab Enoxaparin Sodium (Lovenox) 30 mg SC DAILY [facility] Last Admin: 12/19/17 10:34 Dose: 30 mg Entacapone (Comtan) 200 mg PEG Q8 [facility] Last Admin: 12/19/17 13:06 Dose: 200 mg Ergocalciferol (Drisdol 50,000 Intl Units Cap) 1 cap PO QWK [facility] Last Admin: 12/17/17 12:06 Dose: 1 cap Furosemide (Lasix) 40 mg PEG DAILY [facility] Last Admin: 12/19/17 10:34 Dose: 40 mg Hydralazine HCl (Apresoline) 50 mg PEG Q6 [facility] Last Admin: 12/19/17 12:30 Dose: 50 mg Dextrose/Sodium Chloride (Dextrose 5%/0.45% Ns 1000 Ml) 1,000 mls @ 40 mls/hr IV .Q24H [facility] Last Admin: 12/19/17 00:45 Dose: Not Given Vancomycin/Sodium Chloride (Vancomycin 1 Gm/Ns 200 Ml) 1 gm in 200 mls @ 167 mls/hr IVPB Q24H [facility] PRN Reason: Protocol Stop: 12/24/17 14:01 Last Admin: 12/19/17 13:14 Dose: 167 mls/hr Metronidazole (Flagyl) 500 mg in 100 mls @ 100 mls/hr IVPB Q8 [facility] PRN Reason: Protocol Last Admin: 12/19/17 13:05 Dose: 100 mls/hr Piperacillin Sod/Tazobactam Sod (Zosyn 3.375 Gm Iv Premix) 3.375 gm in 50 mls @ 100 mls/hr IVPB Q8H [facility] PRN Reason: Protocol Last Admin: 12/19/17 10:27 Dose: 100 mls/hr Lamotrigine (Lamictal) 25 mg PEG Q12 [facility] Last Admin: 12/19/17 10:34 Dose: 25 mg Magnesium Hydroxide (Milk Of Magnesia) 30 ml PEG DAILY [facility] Last Admin: 12/19/17 10:41 Dose: 30 ml Memantine (Namenda) 10 mg PEG DAILY [facility] Last Admin: 12/19/17 10:39 Dose: 10 mg Metoprolol Tartrate (Lopressor) 25 mg PEG DAILY [facility] Last Admin: 12/19/17 10:35 Dose: 25 mg Multivitamins/Vitamin C (Multi-Delyn Liquid) 5 ml PEG DAILY [facility] Last Admin: 12/19/17 10:34 Dose: 5 ml Mupirocin (Bactroban Ointment) 0 gm TOP BID [facility] Last Admin: 12/19/17 10:40 Dose: 1 appl Ondansetron HCl (Zofran Tab) 4 mg PEG Q8 [facility] Last Admin: 12/19/17 13:06 Dose: 4 mg Pantoprazole Sodium (Protonix Susp) 40 mg PO DAILY [facility] Last Admin: 12/19/17 10:34 Dose: 40 mg Rosuvastatin Calcium (Crestor) 10 mg PEG HS [facility] Last Admin: 12/18/17 21:27 Dose: 10 mg Simethicone (Mylicon Liq) 80 mg PEG Q8 PRN PRN Reason: GAS - Labs Labs: 12/18/17 06:53 12/18/17 06:53 PT 13.9 SECONDS (9.7-12.2) H 12/16/17 23:14 INR 1.3 12/16/17 23:14 APTT 33 SECONDS (21-34) 12/16/17 23:14
[2017-12-19 22:26] LABS: HEMOGLOBIN 10.3 g/dL (11.0-16.0); MEAN CELL VOLUME 97.1 fL (81.0-99.0); MEAN CORPUSCULAR HEMOGLOBIN 31.9 pg (27.0-31.0); MEAN CORPUSCULAR HGB CONC 32.8 g/dL (33.0-37.0); MEAN PLATELET VOLUME 10.2 fL (7.2-11.7); RBC 3.22 Mil/uL (3.80-5.20); RED CELL DISTRIBUTION WIDTH 15.9 % (11.5-14.5); WHITE BLOOD COUNT 11.1 K/uL (4.8-10.8)
[2017-12-19 22:39] LABS: ALB/GLOB RATIO 1.1 (1.0-2.1); ALBUMIN 2.7 g/dL (3.5-5.0); ALT/SGPT 22 U/L (9-52); AST/SGOT 30 U/L (14-36); BLOOD UREA NITROGEN 33 mg/dL (7-17); CALCIUM 8.4 mg/dl (8.6-10.4); GFR AFRICAN-AMERICAN > 60; GFR NON-AFRICAN AMERICAN > 60
[2017-12-19] MEDS ORDERED: Magnesium Sulfate 1 gm in D5W 1 GM/100 ML BAG IVPB ONE (23:46)
[2017-12-19] MEDS ORDERED: Potassium Chloride 20 mEq/15 ml LIQ UD PEG STA (23:47)
[2017-12-20] MEDS: Dextrose 5%/0.45% NS 1,000 ML IV SCH (00:06)
[2017-12-20] MEDS: Acetaminophen 650mg/20.3ml solution UD PEG SCH ×6 (00:10→20:00)
[2017-12-20] MEDS: Piperacill/Tazo 3.375gm in Dex 3.375 GM/50 ML BAG IVPB SCH ×3 (02:30→18:44)
[2017-12-20] MEDS: metroNIDAZOLE IV 500 mg/100 ml 500 MG/100 ML BAG IVPB SCH ×3 (05:30→22:12)
[2017-12-20 06:42] LABS: ALB/GLOB RATIO 1.1 (1.0-2.1); ALT/SGPT 30 U/L (9-52); AST/SGOT 31 U/L (14-36); BLOOD UREA NITROGEN 32 mg/dL (7-17); CALCIUM 8.4 mg/dl (8.6-10.4); GFR AFRICAN-AMERICAN > 60; GFR NON-AFRICAN AMERICAN > 60
[2017-12-20] MEDS: Albuterol-Ipratrop 3 mg / 0.5 (3 ml) UD IH SCH (07:21)
--- NOTE | 2017-12-20 09:44 | CON ---
DATE: 12/17/[address] Bell to [facility]. HISTORY OF PRESENT ILLNESS: I was called for a GI consultation by the Admitting Medical Team. The patient is seen and fully examined on 12/17/2017 as requested by the primary MD in the presence of the staff in the floor. A shorthand writing consultation sheet left in the chart. The entire chart is reviewed including, but not limited to the most recent lab and radiology study results, current and the previous medication list, current and the previous medical events, allergy to medication list, as well as all the available current and the previous medical records. Case discussed with the staff at length before and immediately after my GI consultation on 12/17/2017. This is an 82-year-old female, a known case for me from previous admissions, was admitted to the hospital through the emergency room from the [facility] due to reported malfunction of her PEG tube with leakage around the stoma of the gastrostomy tube. It has to be mentioned clearly that the patient had surgically inserted gastrostomy tube rather than an actual PEG tube. Due to the patient's clinical and mental status, the information was obtained from medical record, medical staff, Nursing staff, as well as [facility] notes. PAST MEDICAL HISTORY: Including but not limited to, 1. Hypertension. 2. Dementia. 3. Seizure disorder. 4. Peptic ulcer disease. 5. Parkinsonian disease. 6. Status post cholecystectomy. 7. Status post gastrectomy tube insertion due to failure to thrive nonsurgically. 8. History of anemia. FAMILY HISTORY: Unknown. SOCIAL HISTORY: The patient is a [facility] resident and no reported recent history of cigarette smoking or alcohol intake. CURRENT MEDICATIONS: Post admission medication list reviewed. LABORATORY DATA: After being admitted to the hospital, the patient was found to have leukocytosis of 11.1 with normal hemoglobin and hematocrit with sodium 137, potassium 2.8, BUN 67, blood glucose level 174. PHYSICAL EXAMINATION: GENERAL: An 82-year-old female, nonverbal, and able to give accurate information, does not follow simple commands adequately. VITAL SIGNS: Low-grade temperature, pulse of 88, respiratory rate 20 to 24, blood pressure 130/76. HEENT: Showed pale, dry, oral mucous membranes. Nonicteric sclerae. LYMPH NODES: No lymphadenitis or lymphadenopathy. LUNGS: Few scattered bilateral crepitations, decreased air entry at bases. HEART: Positive S1 and S2, with increased rate. ABDOMEN: Soft. Bowel sounds are present with mild generalized tenderness, mildly obese. The previously inserted gastrostomy tube is in the with leakage including some small amount of mucoid exudate around the stoma. Evidence of mild anterior abdominal wall cellulitis seen. No mass or organomegaly. No rebound tenderness or guarding. EXTREMITIES: With lower extremity edematous changes. No clubbing or cyanosis. NEUROLOGIC: No reported new neurological deficits, sensory or motor. No new reported focal deficits. IMPRESSION: 1. Malnutrition, hypoalbuminemia, hyponatremia. 2. Failure to thrive with dysphagia. 3. Status post gastrostomy tube insertion done surgically before with leakage and partial malfunction. 4. Evidence of anterior abdominal wall cellulitis. 5. Leukocytosis secondary to above. 6. Electrolyte imbalance with hypernatremia, hypokalemia, with dehydration, and renal insufficiency. 7. New onset of hyperglycemia. 8. Past medical history as mentioned above. SUGGESTIONS: 1. Agree with your plan. 2. Central hyperalimentation. 3. Surgical reevaluation. 4. Flagyl IV. 5. Proton pump inhibitors IV. 6. Further recommendations to follow and another trial for possible PEG insertion to be scheduled upon receiving an official consent from the legal guardians. Thank you for letting me participate in your patient's case management. Dre Bell MD
--- NOTE | 2017-12-20 10:11 | PN ---
DATE: 12/20/2017 LOCATION: 6[address], bed B. SUBJECTIVE: This is an 82-year-old female seen early in rounds today, with a reported change in the EKG with the certified nurse cardiac strip changes, with again mild leakage of the gastrostomy tube as well as evidence of anterior abdominal wall cellulitis. The patient is nonverbal, unable to give any accurate information, and all the information obtained from the medical and nursing staff notes. No reported actual chest pain, palpitation, or significant shortness of breath. No reported chills or fever. Today's lab showed BUN of 32, creatinine 0.6, blood glucose level 147, calcium 8.24, total protein 5.6, albumin 3, with recent CBC of low hemoglobin and hematocrit with leukocytosis, but normal platelet count. PHYSICAL EXAMINATION: GENERAL: An 82-year-old beta female. VITAL SIGNS: Afebrile, with pulse of 72, respiratory rate 20 to 22, blood pressure 110/64. HEENT: Showed pale, dry oral mucous membranes. Nonicteric sclerae. LUNGS: Few scattered crepitations. Decreased air entry at bases. HEART: Positive S1 and S2. ABDOMEN: Soft, with mild generalized tenderness, mildly distended, mildly obese. The previously inserted surgically gastrostomy tube is seen again. Evidence of mild anterior abdominal wall cellulitis seen with leaking of some small amount of purulent exudate as well as gastric contents. EXTREMITIES: With lower extremities edematous changes. No clubbing or cyanosis. NEUROLOGIC: No reported new neurological deficits, sensory or motor. No reported new focal deficits. Peripheral pulses are present bilaterally. IMPRESSION: 1. Malnutrition with hypoalbuminemia, hypoproteinemia. 2. Dysfunction of a previously inserted gastrostomy tube with leakage around the stoma. 3. Evidence of mild anterior abdominal wall cellulitis. 4. Anemia secondary to above. 5. Known history of hypertension, bronchial asthma, parkinsonian disease, seizure disorder with dementia. 6. Status post cholecystectomy by history. 7. Known history of peptic ulcer disease. SUGGESTIONS: 1. Continue current management. 2. Peripheral hyperalimentation. 3. Continue current management with surgical consultation. 4. The patient will need change of gastrostomy tube, which could be done surgically or endoscopically, awaiting family consent for legal guardian consent. 5. Further recommendations to follow. Dre Bell MD [facility] # [id number]
[2017-12-20] MEDS: Magnesium Hydroxide Susp 30 ml UD PEG SCH (10:44)
[2017-12-20] MEDS: Enoxaparin 30 mg Syringe SC SCH (10:44)
[2017-12-20] MEDS: Pantoprazole 40 mg Susp UD PO SCH (10:45)
[2017-12-20] MEDS: Amantadine 50 mg/5 ml Syrup (473 ml) PEG SCH ×2 (10:45→18:00)
[2017-12-20] MEDS: Multiple Vitamins Oral Solution PEG SCH (10:45)
--- NOTE | 2017-12-20 11:09 | CP.PCM.PN ---
Subjective - Date & Time of Evaluation Date of Evaluation: 12/20/17 Time of Evaluation: 08:00 - Subjective Subjective: IV RX REORDERED CULTURES NOTED Objective - Vital Signs/Intake and Output Vital Signs (last 24 hours): Temp Pulse Resp BP Pulse Ox 98.2 F 79 18 131/63 100 12/20/17 08:24 12/20/17 08:24 12/20/17 08:24 12/20/17 10:44 12/20/17 08:24 Intake and Output: 12/20/17 12/20/17 06:59 18:59 Intake Total 1790 Output Total 500 Balance 1290 - Medications Medications: Current Medications Acetaminophen (Tylenol 650mg/20.3ml Solution Ud) 650 mg PEG Q4 [facility] Last Admin: 12/20/17 08:15 Dose: 650 mg Albuterol/Ipratropium (Duoneb 3 Mg/0.5 Mg (3 Ml) Ud) 3 ml IH RQ24 [facility] Last Admin: 12/20/17 07:21 Dose: 3 ml Amantadine HCl (Symmetrel) 100 mg PEG BID [facility] Last Admin: 12/20/17 10:45 Dose: 100 mg Amlodipine Besylate (Norvasc) 5 mg PEG DAILY [facility] Last Admin: 12/20/17 10:45 Dose: 5 mg Aspirin (Aspirin Chewable) 81 mg PEG DAILY [facility] Last Admin: 12/20/17 10:42 Dose: 81 mg Calcium Carbonate (Oscal) 500 mg PO BID [facility] Last Admin: 12/20/17 10:45 Dose: 500 mg Carbidopa/Levodopa (Sinemet) 1 tab GT TID [facility] Last Admin: 12/20/17 10:48 Dose: 1 tab Enoxaparin Sodium (Lovenox) 30 mg SC DAILY [facility] Last Admin: 12/20/17 10:44 Dose: 30 mg Entacapone (Comtan) 200 mg PEG Q8 [facility] Last Admin: 12/20/17 05:39 Dose: 200 mg Ergocalciferol (Drisdol 50,000 Intl Units Cap) 1 cap PO QWK [facility] Last Admin: 12/17/17 12:06 Dose: 1 cap Furosemide (Lasix) 40 mg PEG DAILY [facility] Last Admin: 12/20/17 10:44 Dose: 40 mg Hydralazine HCl (Apresoline) 50 mg PEG Q6 [facility] Last Admin: 12/20/17 05:39 Dose: Not Given Metronidazole (Flagyl) 500 mg in 100 mls @ 100 mls/hr IVPB Q8 [facility] PRN Reason: Protocol Last Admin: 12/20/17 05:30 Dose: 100 mls/hr Piperacillin Sod/Tazobactam Sod (Zosyn 3.375 Gm Iv Premix) 3.375 gm in 50 mls @ 100 mls/hr IVPB Q8H [facility] PRN Reason: Protocol Last Admin: 12/20/17 10:46 Dose: 100 mls/hr Vancomycin HCl 1,000 mg/ (Sodium Chloride) 250 mls @ 166.6 mls/hr IVPB Q12H [facility] PRN Reason: Protocol Lamotrigine (Lamictal) 25 mg PEG Q12 [facility] Last Admin: 12/20/17 10:43 Dose: 25 mg Magnesium Hydroxide (Milk Of Magnesia) 30 ml PEG DAILY [facility] Last Admin: 12/20/17 10:44 Dose: 30 ml Memantine (Namenda) 10 mg PEG DAILY [facility] Last Admin: 12/20/17 10:45 Dose: 10 mg Metoprolol Tartrate (Lopressor) 25 mg PEG DAILY [facility] Last Admin: 12/20/17 10:44 Dose: 25 mg Multivitamins/Vitamin C (Multi-Delyn Liquid) 5 ml PEG DAILY [facility] Last Admin: 12/20/17 10:45 Dose: 5 ml Mupirocin (Bactroban Ointment) 0 gm TOP BID [facility] Last Admin: 12/20/17 10:42 Dose: 1 appl Ondansetron HCl (Zofran Tab) 4 mg PEG Q8 [facility] Last Admin: 12/19/17 22:43 Dose: 4 mg Pantoprazole Sodium (Protonix Susp) 40 mg PO DAILY [facility] Last Admin: 12/20/17 10:45 Dose: 40 mg Rosuvastatin Calcium (Crestor) 10 mg PEG HS [facility] Last Admin: 12/19/17 22:42 Dose: 10 mg Simethicone (Mylicon Liq) 80 mg PEG Q8 PRN PRN Reason: GAS - Labs Labs: 12/19/17 22:21 12/20/17 06:16 PT 13.9 SECONDS (9.7-12.2) H 12/16/17 23:14 INR 1.3 12/16/17 23:14 APTT 33 SECONDS (21-34) 12/16/17 23:14 - Constitutional Appears: Non-toxic, Confused, Cachectic, Chronically Ill - Head Exam Head Exam: NORMOCEPHALIC - Eye Exam Eye Exam: absent: Scleral icterus - ENT Exam ENT Exam: Mucous Membranes Dry - Neck Exam Neck Exam: absent: Lymphadenopathy - Respiratory Exam Respiratory Exam: Decreased Breath Sounds - Cardiovascular Exam Cardiovascular Exam: REGULAR RHYTHM - GI/Abdominal Exam GI & Abdominal Exam: Distended Assessment and Plan (1) Dehydration Status: Acute (2) Fever Status: Acute (3) Sepsis Status: Acute (4) UTI (urinary tract infection) Status: Chronic (5) Altered mental status Status: Acute (6) Problem with gastrostomy tube Status: Acute
--- NOTE | 2017-12-20 11:34 | CARD ---
APPROVED REPORT EKG Measurement Heart [id number] 140P5 [id number] <Conclusion> Normal sinus rhythm Low voltage QRS Septal infarct, age undetermined Abnormal ECG
[2017-12-20] MEDS: Vancomycin 1 gm/NS 200 ml 1 GM/200 ML BAG IVPB SCH (12:03)
--- NOTE | 2017-12-20 14:16 | CARD ---
APPROVED REPORT EKG Measurement Heart [id number] 150P43 [id number] <Conclusion> Poor data quality, interpretation may be adversely affected Normal sinus rhythm Septal infarct, age undetermined Abnormal ECG
--- NOTE | 2017-12-20 15:27 | CP.PCM.PN ---
Subjective - Date & Time of Evaluation Date of Evaluation: 12/20/17 Time of Evaluation: 11:20 - Subjective Subjective: clinically same Objective - Vital Signs/Intake and Output Vital Signs (last 24 hours): Temp Pulse Resp BP Pulse Ox 99 F 71 22 121/65 98 12/20/17 11:59 12/20/17 11:59 12/20/17 11:59 12/20/17 11:59 12/20/17 11:59 Intake and Output: 12/20/17 12/20/17 06:59 18:59 Intake Total 1790 500 Output Total 500 500 Balance 1290 0 - Medications Medications: Current Medications Acetaminophen (Tylenol 650mg/20.3ml Solution Ud) 650 mg PEG Q4 [facility] Last Admin: 12/20/17 12:11 Dose: Not Given Albuterol/Ipratropium (Duoneb 3 Mg/0.5 Mg (3 Ml) Ud) 3 ml IH RQ24 [facility] Last Admin: 12/20/17 07:21 Dose: 3 ml Amantadine HCl (Symmetrel) 100 mg PEG BID [facility] Last Admin: 12/20/17 10:45 Dose: 100 mg Amlodipine Besylate (Norvasc) 5 mg PEG DAILY [facility] Last Admin: 12/20/17 10:45 Dose: 5 mg Aspirin (Aspirin Chewable) 81 mg PEG DAILY [facility] Last Admin: 12/20/17 10:42 Dose: 81 mg Calcium Carbonate (Oscal) 500 mg PO BID [facility] Last Admin: 12/20/17 10:45 Dose: 500 mg Carbidopa/Levodopa (Sinemet) 1 tab GT TID [facility] Last Admin: 12/20/17 14:01 Dose: Not Given Enoxaparin Sodium (Lovenox) 30 mg SC DAILY [facility] Last Admin: 12/20/17 10:44 Dose: 30 mg Entacapone (Comtan) 200 mg PEG Q8 [facility] Last Admin: 12/20/17 14:01 Dose: Not Given Ergocalciferol (Drisdol 50,000 Intl Units Cap) 1 cap PO QWK [facility] Last Admin: 12/17/17 12:06 Dose: 1 cap Furosemide (Lasix) 40 mg PEG DAILY [facility] Last Admin: 12/20/17 10:44 Dose: 40 mg Hydralazine HCl (Apresoline) 50 mg PEG Q6 [facility] Last Admin: 12/20/17 12:11 Dose: Not Given Metronidazole (Flagyl) 500 mg in 100 mls @ 100 mls/hr IVPB Q8 [facility] PRN Reason: Protocol Last Admin: 12/20/17 13:57 Dose: 100 mls/hr Piperacillin Sod/Tazobactam Sod (Zosyn 3.375 Gm Iv Premix) 3.375 gm in 50 mls @ 100 mls/hr IVPB Q8H [facility] PRN Reason: Protocol Last Admin: 12/20/17 10:46 Dose: 100 mls/hr Vancomycin/Sodium Chloride (Vancomycin 1 Gm/Ns 200 Ml) 1 gm in 200 mls @ 166.6 mls/hr IVPB Q12H [facility] PRN Reason: Protocol Stop: 12/25/17 12:01 Last Admin: 12/20/17 12:03 Dose: 166.6 mls/hr Lamotrigine (Lamictal) 25 mg PEG Q12 [facility] Last Admin: 12/20/17 10:43 Dose: 25 mg Magnesium Hydroxide (Milk Of Magnesia) 30 ml PEG DAILY [facility] Last Admin: 12/20/17 10:44 Dose: 30 ml Memantine (Namenda) 10 mg PEG DAILY [facility] Last Admin: 12/20/17 10:45 Dose: 10 mg Metoprolol Tartrate (Lopressor) 25 mg PEG DAILY [facility] Last Admin: 12/20/17 10:44 Dose: 25 mg Multivitamins/Vitamin C (Multi-Delyn Liquid) 5 ml PEG DAILY [facility] Last Admin: 12/20/17 10:45 Dose: 5 ml Mupirocin (Bactroban Ointment) 0 gm TOP BID [facility] Last Admin: 12/20/17 10:42 Dose: 1 appl Ondansetron HCl (Zofran Tab) 4 mg PEG Q8 [facility] Last Admin: 12/20/17 14:01 Dose: Not Given Pantoprazole Sodium (Protonix Susp) 40 mg PO DAILY [facility] Last Admin: 12/20/17 10:45 Dose: 40 mg Rosuvastatin Calcium (Crestor) 10 mg PEG HS [facility] Last Admin: 12/19/17 22:42 Dose: 10 mg Simethicone (Mylicon Liq) 80 mg PEG Q8 PRN PRN Reason: GAS - Labs Labs: 12/19/17 22:21 12/20/17 06:16 PT 13.9 SECONDS (9.7-12.2) H 12/16/17 23:14 INR 1.3 12/16/17 23:14 APTT 33 SECONDS (21-34) 12/16/17 23:14 - Constitutional Appears: Well - Head Exam Head Exam: ATRAUMATIC, NORMAL INSPECTION, NORMOCEPHALIC - Eye Exam Eye Exam: EOMI, Normal appearance, PERRL Pupil Exam: NORMAL ACCOMODATION, PERRL - ENT Exam ENT Exam: Mucous Membranes Moist, Normal Exam - Neck Exam Neck Exam: Full ROM, Normal Inspection. absent: Lymphadenopathy - Respiratory Exam Respiratory Exam: Decreased Breath Sounds - Cardiovascular Exam Cardiovascular Exam: REGULAR RHYTHM, +S1, +S2 - GI/Abdominal Exam GI & Abdominal Exam: Soft, Diminished Bowel Sounds - Rectal Exam Rectal Exam: Deferred
--- NOTE | 2017-12-20 16:01 | CP.PCM.CON ---
<Lucho Munoz - Last Filed: 12/20/17 16:01> History of Present Illness - History of Present Illness History of Present Illness: Surgery- Dr. Enriquez Reason for Consult: Malfunctioning G-Tube 82F pmhx significant for HTN, dementia, Parkinsons, PUD, presents to [facility] and surgery was consulted for malfunctioning G-Tube. Patient was admitted on 11/29/17 for similar problem. EGD was performed by GI at that time showing G-tube well placed and patent. Patient follows simple commands. History was obtained via electronic records. PMH: stated above PSH: Trini, g-tube ALL: NKDA Socialhx: no tobacco, etoh, recreational drug use FH: non-contributory Review of Systems - Review of Systems All systems: reviewed and no additional remarkable complaints except - Constitutional Constitutional: As Per HPI Past Patient History - Past Medical History & Family History Past Medical History?: Yes - Past Social History Smoking Status: Never Smoked - CARDIAC Hx Cardiac Disorders: Yes Hx Hypertension: Yes - PULMONARY Hx Respiratory Disorders: Yes Hx Asthma: Yes - NEUROLOGICAL Hx Neurological Disorder: Yes Hx Dementia: Yes Hx Parkinson's Disease: Yes Hx Seizures: Yes - HEENT Hx HEENT Problems: No - RENAL Hx Chronic Kidney Disease: No - ENDOCRINE/METABOLIC Hx Endocrine Disorders: No - HEMATOLOGICAL/ONCOLOGICAL Hx Blood Disorders: Yes Hx Anemia: Yes - INTEGUMENTARY Hx Dermatological Problems: No - MUSCULOSKELETAL/RHEUMATOLOGICAL Hx Falls: No - GASTROINTESTINAL Hx Gastrointestinal Disorders: Yes Hx Gastroesophageal Reflux: Yes Other/Comment: dysphagia - GENITOURINARY/GYNECOLOGICAL Hx Genitourinary Disorders: Yes Hx Urinary Tract Infection: Yes - PSYCHIATRIC Hx Psychophysiologic Disorder: No Hx Substance Use: No - SURGICAL HISTORY Hx Surgeries: Yes Hx Cholecystectomy: Yes - ANESTHESIA Hx Anesthesia: Yes Hx Anesthesia Reactions: No Meds Allergies/Adverse Reactions: Allergies Allergy/AdvReac Type Severity Reaction Status Date / Time No Known Allergies Allergy Verified 11/29/17 14:10 - Medications Medications: Current Medications Acetaminophen (Tylenol 650mg/20.3ml Solution Ud) 650 mg PEG Q4 [facility] Last Admin: 12/20/17 12:11 Dose: Not Given Albuterol/Ipratropium (Duoneb 3 Mg/0.5 Mg (3 Ml) Ud) 3 ml IH RQ24 [facility] Last Admin: 12/20/17 07:21 Dose: 3 ml Amantadine HCl (Symmetrel) 100 mg PEG BID [facility] Last Admin: 12/20/17 10:45 Dose: 100 mg Amlodipine Besylate (Norvasc) 5 mg PEG DAILY [facility] Last Admin: 12/20/17 10:45 Dose: 5 mg Aspirin (Aspirin Chewable) 81 mg PEG DAILY [facility] Last Admin: 12/20/17 10:42 Dose: 81 mg Calcium Carbonate (Oscal) 500 mg PO BID [facility] Last Admin: 12/20/17 10:45 Dose: 500 mg Carbidopa/Levodopa (Sinemet) 1 tab GT TID [facility] Last Admin: 12/20/17 14:01 Dose: Not Given Enoxaparin Sodium (Lovenox) 30 mg SC DAILY [facility] Last Admin: 12/20/17 10:44 Dose: 30 mg Entacapone (Comtan) 200 mg PEG Q8 [facility] Last Admin: 12/20/17 14:01 Dose: Not Given Ergocalciferol (Drisdol 50,000 Intl Units Cap) 1 cap PO QWK [facility] Last Admin: 12/17/17 12:06 Dose: 1 cap Furosemide (Lasix) 40 mg PEG DAILY [facility] Last Admin: 12/20/17 10:44 Dose: 40 mg Hydralazine HCl (Apresoline) 50 mg PEG Q6 [facility] Last Admin: 12/20/17 12:11 Dose: Not Given Metronidazole (Flagyl) 500 mg in 100 mls @ 100 mls/hr IVPB Q8 [facility] PRN Reason: Protocol Last Admin: 12/20/17 13:57 Dose: 100 mls/hr Piperacillin Sod/Tazobactam Sod (Zosyn 3.375 Gm Iv Premix) 3.375 gm in 50 mls @ 100 mls/hr IVPB Q8H [facility] PRN Reason: Protocol Last Admin: 12/20/17 10:46 Dose: 100 mls/hr Vancomycin/Sodium Chloride (Vancomycin 1 Gm/Ns 200 Ml) 1 gm in 200 mls @ 166.6 mls/hr IVPB Q12H [facility] PRN Reason: Protocol Stop: 12/25/17 12:01 Last Admin: 12/20/17 12:03 Dose: 166.6 mls/hr Lamotrigine (Lamictal) 25 mg PEG Q12 [facility] Last Admin: 12/20/17 10:43 Dose: 25 mg Magnesium Hydroxide (Milk Of Magnesia) 30 ml PEG DAILY [facility] Last Admin: 12/20/17 10:44 Dose: 30 ml Memantine (Namenda) 10 mg PEG DAILY [facility] Last Admin: 12/20/17 10:45 Dose: 10 mg Metoprolol Tartrate (Lopressor) 25 mg PEG DAILY [facility] Last Admin: 12/20/17 10:44 Dose: 25 mg Multivitamins/Vitamin C (Multi-Delyn Liquid) 5 ml PEG DAILY [facility] Last Admin: 12/20/17 10:45 Dose: 5 ml Mupirocin (Bactroban Ointment) 0 gm TOP BID [facility] Last Admin: 12/20/17 10:42 Dose: 1 appl Ondansetron HCl (Zofran Tab) 4 mg PEG Q8 [facility] Last Admin: 12/20/17 14:01 Dose: Not Given Pantoprazole Sodium (Protonix Susp) 40 mg PO DAILY [facility] Last Admin: 12/20/17 10:45 Dose: 40 mg Rosuvastatin Calcium (Crestor) 10 mg PEG HS [facility] Last Admin: 12/19/17 22:42 Dose: 10 mg Simethicone (Mylicon Liq) 80 mg PEG Q8 PRN PRN Reason: GAS Physical Exam - Constitutional Appears: Non-toxic, No Acute Distress - Head Exam Head Exam: ATRAUMATIC - Eye Exam Eye Exam: EOMI. absent: Scleral icterus - ENT Exam ENT Exam: Mucous Membranes Moist - Respiratory Exam Respiratory Exam: NORMAL BREATHING PATTERN. absent: Accessory Muscle Use, Respiratory Distress - Cardiovascular Exam Cardiovascular Exam: +S1, +S2. absent: Bradycardia, Tachycardia - GI/Abdominal Exam GI & Abdominal Exam: Soft. absent: Distended, Firm, Guarding, Hernia, Rebound, Rigid, Tenderness Additional comments: G-tube in place. no stutures No skin excoration some serous discharge around insertion site of G-Tube - Extremities Exam Extremities exam: Positive for: normal inspection. Negative for: calf tenderness - Neurological Exam Neurological exam: Altered - Psychiatric Exam Psychiatric exam: Flat Affect - Skin Skin Exam: Intact, Warm Results - Vital Signs Recent Vital Signs: Last Vital Signs Temp 99 F 12/20/17 11:59 Pulse 71 12/20/17 11:59 Resp 22 12/20/17 11:59 BP 121/65 12/20/17 11:59 Pulse Ox 98 12/20/17 11:59 - Labs Result Diagrams: 12/19/17 22:21 12/20/17 06:16 Labs: Laboratory Results - last 24 hr 12/19/17 12/19/17 12/20/17 22:21 22:21 06:16 WBC 11.1 H RBC 3.22 L Hgb 10.3 L Hct 31.3 L MCV 97.1 MCH 31.9 H MCHC 32.8 L RDW 15.9 H Plt Count 158 MPV 10.2 Sodium 148 145 Potassium 3.5 L 4.1 Chloride 112 H 112 H Carbon Dioxide 31 H 29 Anion Gap 8 L 9 L BUN 33 H 32 H Creatinine 0.7 0.6 L Est GFR ( Amer) > 60 > 60 Est GFR (Non-Af Amer) > 60 > 60 Random Glucose 161 H 174 H Calcium 8.4 L 8.4 L Total Bilirubin 0.6 0.7 AST 30 31 ALT 22 30 Alkaline Phosphatase 57 57 Total Protein 5.2 L 5.6 L Albumin 2.7 L 3.0 L Globulin 2.5 2.6 Albumin/Globulin Ratio 1.1 1.1 Assessment & Plan - Assessment and Plan (Free Text) Assessment: 82F w/ non-functioning G-Tube Plan: - Plan for GI- EGD and possible replacement of G-Tube - will follow up post op - medical management per primary team - hold tube feeds - further [facility] <Abhijeet Enriquez - Last Filed: 12/23/17 18:29> Meds - Medications Medications: Current Medications Acetaminophen (Tylenol 650mg/20.3ml Solution Ud) 650 mg PEG Q4 [facility] Last Admin: 12/23/17 17:04 Dose: 650 mg Albuterol/Ipratropium (Duoneb 3 Mg/0.5 Mg (3 Ml) Ud) 3 ml IH RQ24 [facility] Last Admin: 12/23/17 07:26 Dose: 3 ml Amlodipine Besylate (Norvasc) 5 mg PEG DAILY [facility] Last Admin: 12/23/17 10:32 Dose: 5 mg Aspirin (Aspirin Chewable) 81 mg PEG DAILY [facility] Last Admin: 12/23/17 10:32 Dose: 81 mg Calcium Carbonate (Oscal) 500 mg PO BID [facility] Last Admin: 12/23/17 17:02 Dose: 500 mg Carbidopa/Levodopa (Sinemet) 1 tab GT TID [facility] Last Admin: 12/23/17 17:02 Dose: 1 tab Enoxaparin Sodium (Lovenox) 30 mg SC DAILY [facility] Last Admin: 12/23/17 10:31 Dose: 30 mg Entacapone (Comtan) 200 mg PEG Q8 [facility] Last Admin: 12/23/17 13:05 Dose: 200 mg Ergocalciferol (Drisdol 50,000 Intl Units Cap) 1 cap PO QWK [facility] Last Admin: 12/17/17 12:06 Dose: 1 cap Furosemide (Lasix) 40 mg PEG DAILY [facility] Last Admin: 12/23/17 10:33 Dose: 40 mg Hydralazine HCl (Apresoline) 50 mg PEG Q6 [facility] Last Admin: 12/23/17 17:01 Dose: 50 mg Piperacillin Sod/Tazobactam Sod (Zosyn 3.375 Gm Iv Premix) 3.375 gm in 50 mls @ 100 mls/hr IVPB Q8H [facility] PRN Reason: Protocol Last Admin: 12/23/17 18:20 Dose: 100 mls/hr Ciprofloxacin (Cipro 200mg/100ml D5w) 100 mls @ 67 mls/hr IVPB Q12H [facility] PRN Reason: Protocol Stop: 12/31/17 05:30 Last Admin: 12/23/17 16:42 Dose: 67 mls/hr Vancomycin/Sodium Chloride (Vancomycin 1 Gm/Ns 200 Ml) 1 gm in 200 mls @ 166.7 mls/hr IVPB Q24H [facility] PRN Reason: Protocol Stop: 12/26/17 17:01 Last Admin: 12/23/17 16:44 Dose: 166.7 mls/hr Lamotrigine (Lamictal) 25 mg PEG Q12 [facility] Last Admin: 12/23/17 10:34 Dose: 25 mg Magnesium Hydroxide (Milk Of Magnesia) 30 ml PEG DAILY [facility] Last Admin: 12/23/17 10:50 Dose: 30 ml Memantine (Namenda) 10 mg PEG DAILY [facility] Last Admin: 12/23/17 10:32 Dose: 10 mg Metoprolol Tartrate (Lopressor) 25 mg PEG DAILY [facility] Last Admin: 12/23/17 10:32 Dose: 25 mg Multivitamins/Vitamin C (Multi-Delyn Liquid) 5 ml PEG DAILY [facility] Last Admin: 12/23/17 10:34 Dose: 5 ml Mupirocin (Bactroban Ointment) 0 gm TOP BID [facility] Last Admin: 12/23/17 17:05 Dose: 1 appl Ondansetron HCl (Zofran Tab) 4 mg PEG Q8 [facility] Last Admin: 12/23/17 13:15 Dose: 4 mg Pantoprazole Sodium (Protonix Susp) 40 mg PO DAILY [facility] Last Admin: 12/23/17 10:33 Dose: 40 mg Rosuvastatin Calcium (Crestor) 10 mg PEG HS [facility] Last Admin: 12/22/17 21:40 Dose: 10 mg Simethicone (Mylicon Liq) 80 mg PEG Q8 PRN PRN Reason: GAS Results - Vital Signs Recent Vital Signs: Last Vital Signs Temp 98.0 F 12/23/17 15:59 Pulse 67 12/23/17 15:59 Resp 18 12/23/17 15:59 BP 106/60 12/23/17 15:59 Pulse Ox 100 12/23/17 15:59 - Labs Result Diagrams: 12/19/17 22:21 12/20/17 06:16 Attending/Attestation - Attestation I have personally seen and examined this patient.: Yes I have fully participated in the care of the patient.: Yes I have reviewed all pertinent clinical information: Yes Notes (Text): Pt is seen and examined at bedside Agree with above note and assessment Pt with Malfunctionin G tube Abdomen: Soft, Tender, ND, Cellulitis around G tube Labs and radiology reviewed Plan: GI Consent NPO, IVF IV antibiotics Plan d.w pt in detail Risk and benefit explained in detail.
--- NOTE | 2017-12-20 19:10 | CP.PCM.CON ---
History of Present Illness - History of Present Illness History of Present Illness: I was asked to evaluate patient by Dr Celaya Patient was admitted for dehydration and urosepsis. The patient was noted to have wide QRS complex. She has altered mental status. Review of Systems - Review of Systems Systems not reviewed;Unavailable: Altered Mental Status Past Patient History - Past Medical History & Family History Past Medical History?: Yes - Past Social History Smoking Status: Never Smoked - CARDIAC Hx Cardiac Disorders: Yes Hx Hypertension: Yes - PULMONARY Hx Respiratory Disorders: Yes Hx Asthma: Yes - NEUROLOGICAL Hx Neurological Disorder: Yes Hx Dementia: Yes Hx Parkinson's Disease: Yes Hx Seizures: Yes - HEENT Hx HEENT Problems: No - RENAL Hx Chronic Kidney Disease: No - ENDOCRINE/METABOLIC Hx Endocrine Disorders: No - HEMATOLOGICAL/ONCOLOGICAL Hx Blood Disorders: Yes Hx Anemia: Yes - INTEGUMENTARY Hx Dermatological Problems: No - MUSCULOSKELETAL/RHEUMATOLOGICAL Hx Falls: No - GASTROINTESTINAL Hx Gastrointestinal Disorders: Yes Hx Gastroesophageal Reflux: Yes Other/Comment: dysphagia - GENITOURINARY/GYNECOLOGICAL Hx Genitourinary Disorders: Yes Hx Urinary Tract Infection: Yes - PSYCHIATRIC Hx Psychophysiologic Disorder: No Hx Substance Use: No - SURGICAL HISTORY Hx Surgeries: Yes Hx Cholecystectomy: Yes - ANESTHESIA Hx Anesthesia: Yes Hx Anesthesia Reactions: No Meds Allergies/Adverse Reactions: Allergies Allergy/AdvReac Type Severity Reaction Status Date / Time No Known Allergies Allergy Verified 11/29/17 14:10 - Medications Medications: Current Medications Acetaminophen (Tylenol 650mg/20.3ml Solution Ud) 650 mg PEG Q4 [facility] Last Admin: 12/20/17 12:11 Dose: Not Given Albuterol/Ipratropium (Duoneb 3 Mg/0.5 Mg (3 Ml) Ud) 3 ml IH RQ24 [facility] Last Admin: 12/20/17 07:21 Dose: 3 ml Amantadine HCl (Symmetrel) 100 mg PEG BID [facility] Last Admin: 12/20/17 10:45 Dose: 100 mg Amlodipine Besylate (Norvasc) 5 mg PEG DAILY [facility] Last Admin: 12/20/17 10:45 Dose: 5 mg Aspirin (Aspirin Chewable) 81 mg PEG DAILY [facility] Last Admin: 12/20/17 10:42 Dose: 81 mg Calcium Carbonate (Oscal) 500 mg PO BID [facility] Last Admin: 12/20/17 10:45 Dose: 500 mg Carbidopa/Levodopa (Sinemet) 1 tab GT TID [facility] Last Admin: 12/20/17 14:01 Dose: Not Given Enoxaparin Sodium (Lovenox) 30 mg SC DAILY [facility] Last Admin: 12/20/17 10:44 Dose: 30 mg Entacapone (Comtan) 200 mg PEG Q8 [facility] Last Admin: 12/20/17 14:01 Dose: Not Given Ergocalciferol (Drisdol 50,000 Intl Units Cap) 1 cap PO QWK [facility] Last Admin: 12/17/17 12:06 Dose: 1 cap Furosemide (Lasix) 40 mg PEG DAILY [facility] Last Admin: 12/20/17 10:44 Dose: 40 mg Hydralazine HCl (Apresoline) 50 mg PEG Q6 [facility] Last Admin: 12/20/17 12:11 Dose: Not Given Metronidazole (Flagyl) 500 mg in 100 mls @ 100 mls/hr IVPB Q8 [facility] PRN Reason: Protocol Last Admin: 12/20/17 13:57 Dose: 100 mls/hr Piperacillin Sod/Tazobactam Sod (Zosyn 3.375 Gm Iv Premix) 3.375 gm in 50 mls @ 100 mls/hr IVPB Q8H [facility] PRN Reason: Protocol Last Admin: 12/20/17 18:44 Dose: 100 mls/hr Vancomycin/Sodium Chloride (Vancomycin 1 Gm/Ns 200 Ml) 1 gm in 200 mls @ 166.6 mls/hr IVPB Q12H [facility] PRN Reason: Protocol Stop: 12/25/17 12:01 Last Admin: 12/20/17 12:03 Dose: 166.6 mls/hr Lamotrigine (Lamictal) 25 mg PEG Q12 [facility] Last Admin: 12/20/17 10:43 Dose: 25 mg Magnesium Hydroxide (Milk Of Magnesia) 30 ml PEG DAILY [facility] Last Admin: 12/20/17 10:44 Dose: 30 ml Memantine (Namenda) 10 mg PEG DAILY [facility] Last Admin: 12/20/17 10:45 Dose: 10 mg Metoprolol Tartrate (Lopressor) 25 mg PEG DAILY [facility] Last Admin: 12/20/17 10:44 Dose: 25 mg Multivitamins/Vitamin C (Multi-Delyn Liquid) 5 ml PEG DAILY [facility] Last Admin: 12/20/17 10:45 Dose: 5 ml Mupirocin (Bactroban Ointment) 0 gm TOP BID [facility] Last Admin: 12/20/17 10:42 Dose: 1 appl Ondansetron HCl (Zofran Tab) 4 mg PEG Q8 [facility] Last Admin: 12/20/17 14:01 Dose: Not Given Pantoprazole Sodium (Protonix Susp) 40 mg PO DAILY [facility] Last Admin: 12/20/17 10:45 Dose: 40 mg Rosuvastatin Calcium (Crestor) 10 mg PEG HS [facility] Last Admin: 12/19/17 22:42 Dose: 10 mg Simethicone (Mylicon Liq) 80 mg PEG Q8 [facility] PRN Reason: GAS Physical Exam - Constitutional Appears: Non-toxic - Head Exam Head Exam: NORMAL INSPECTION - Eye Exam Eye Exam: Normal appearance - ENT Exam ENT Exam: Mucous Membranes Moist - Neck Exam Neck exam: Positive for: Full Rom - Respiratory Exam Respiratory Exam: NORMAL BREATHING PATTERN - Cardiovascular Exam Cardiovascular Exam: REGULAR RHYTHM - GI/Abdominal Exam GI & Abdominal Exam: Normal Bowel Sounds - Rectal Exam Rectal Exam: Deferred - Extremities Exam Extremities exam: Negative for: pedal edema - Back Exam Back exam: NORMAL INSPECTION - Skin Skin Exam: Normal Color Results - Vital Signs Recent Vital Signs: Last Vital Signs Temp 98.1 F 12/20/17 15:20 Pulse 71 12/20/17 15:20 Resp 20 12/20/17 15:20 BP 124/63 12/20/17 15:20 Pulse Ox 100 12/20/17 15:20 - Labs Result Diagrams: 12/19/17 22:21 12/20/17 06:16 Labs: Laboratory Results - last 24 hr 12/19/17 12/19/17 12/20/17 22:21 22:21 06:16 WBC 11.1 H RBC 3.22 L Hgb 10.3 L Hct 31.3 L MCV 97.1 MCH 31.9 H MCHC 32.8 L RDW 15.9 H Plt Count 158 MPV 10.2 Sodium 148 145 Potassium 3.5 L 4.1 Chloride 112 H 112 H Carbon Dioxide 31 H 29 Anion Gap 8 L 9 L BUN 33 H 32 H Creatinine 0.7 0.6 L Est GFR ( Amer) > 60 > 60 Est GFR (Non-Af Amer) > 60 > 60 Random Glucose 161 H 174 H Calcium 8.4 L 8.4 L Total Bilirubin 0.6 0.7 AST 30 31 ALT 22 30 Alkaline Phosphatase 57 57 Total Protein 5.2 L 5.6 L Albumin 2.7 L 3.0 L Globulin 2.5 2.6 Albumin/Globulin Ratio 1.1 1.1 - EKG Data EKG Interpreted by: Myself Assessment & Plan (1) HTN (hypertension) Assessment and Plan: blood pressure control. willl monitor on telemetry Status: Chronic
--- NOTE | 2017-12-20 19:24 | CP.PCM.PN ---
Subjective - Date & Time of Evaluation Date of Evaluation: 12/20/17 Time of Evaluation: 19:24 Objective - Vital Signs/Intake and Output Vital Signs (last 24 hours): Temp Pulse Resp BP Pulse Ox 98.1 F 71 20 124/63 100 12/20/17 15:20 12/20/17 15:20 12/20/17 15:20 12/20/17 15:20 12/20/17 15:20 Intake and Output: 12/20/17 12/21/17 18:59 06:59 Intake Total 500 Output Total 500 Balance 0 - Medications Medications: Current Medications Acetaminophen (Tylenol 650mg/20.3ml Solution Ud) 650 mg PEG Q4 [facility] Last Admin: 12/20/17 12:11 Dose: Not Given Albuterol/Ipratropium (Duoneb 3 Mg/0.5 Mg (3 Ml) Ud) 3 ml IH RQ24 [facility] Last Admin: 12/20/17 07:21 Dose: 3 ml Amantadine HCl (Symmetrel) 100 mg PEG BID [facility] Last Admin: 12/20/17 10:45 Dose: 100 mg Amlodipine Besylate (Norvasc) 5 mg PEG DAILY [facility] Last Admin: 12/20/17 10:45 Dose: 5 mg Aspirin (Aspirin Chewable) 81 mg PEG DAILY [facility] Last Admin: 12/20/17 10:42 Dose: 81 mg Calcium Carbonate (Oscal) 500 mg PO BID [facility] Last Admin: 12/20/17 10:45 Dose: 500 mg Carbidopa/Levodopa (Sinemet) 1 tab GT TID [facility] Last Admin: 12/20/17 14:01 Dose: Not Given Enoxaparin Sodium (Lovenox) 30 mg SC DAILY [facility] Last Admin: 12/20/17 10:44 Dose: 30 mg Entacapone (Comtan) 200 mg PEG Q8 [facility] Last Admin: 12/20/17 14:01 Dose: Not Given Ergocalciferol (Drisdol 50,000 Intl Units Cap) 1 cap PO QWK [facility] Last Admin: 12/17/17 12:06 Dose: 1 cap Furosemide (Lasix) 40 mg PEG DAILY [facility] Last Admin: 12/20/17 10:44 Dose: 40 mg Hydralazine HCl (Apresoline) 50 mg PEG Q6 [facility] Last Admin: 12/20/17 12:11 Dose: Not Given Metronidazole (Flagyl) 500 mg in 100 mls @ 100 mls/hr IVPB Q8 [facility] PRN Reason: Protocol Last Admin: 12/20/17 13:57 Dose: 100 mls/hr Piperacillin Sod/Tazobactam Sod (Zosyn 3.375 Gm Iv Premix) 3.375 gm in 50 mls @ 100 mls/hr IVPB Q8H [facility] PRN Reason: Protocol Last Admin: 12/20/17 18:44 Dose: 100 mls/hr Vancomycin/Sodium Chloride (Vancomycin 1 Gm/Ns 200 Ml) 1 gm in 200 mls @ 166.6 mls/hr IVPB Q12H [facility] PRN Reason: Protocol Stop: 12/25/17 12:01 Last Admin: 12/20/17 12:03 Dose: 166.6 mls/hr Lamotrigine (Lamictal) 25 mg PEG Q12 [facility] Last Admin: 12/20/17 10:43 Dose: 25 mg Magnesium Hydroxide (Milk Of Magnesia) 30 ml PEG DAILY [facility] Last Admin: 12/20/17 10:44 Dose: 30 ml Memantine (Namenda) 10 mg PEG DAILY [facility] Last Admin: 12/20/17 10:45 Dose: 10 mg Metoprolol Tartrate (Lopressor) 25 mg PEG DAILY [facility] Last Admin: 12/20/17 10:44 Dose: 25 mg Multivitamins/Vitamin C (Multi-Delyn Liquid) 5 ml PEG DAILY [facility] Last Admin: 12/20/17 10:45 Dose: 5 ml Mupirocin (Bactroban Ointment) 0 gm TOP BID [facility] Last Admin: 12/20/17 10:42 Dose: 1 appl Ondansetron HCl (Zofran Tab) 4 mg PEG Q8 [facility] Last Admin: 12/20/17 14:01 Dose: Not Given Pantoprazole Sodium (Protonix Susp) 40 mg PO DAILY [facility] Last Admin: 12/20/17 10:45 Dose: 40 mg Rosuvastatin Calcium (Crestor) 10 mg PEG HS [facility] Last Admin: 12/19/17 22:42 Dose: 10 mg Simethicone (Mylicon Liq) 80 mg PEG Q8 [facility] PRN Reason: GAS - Labs Labs: 12/19/17 22:21 12/20/17 06:16 PT 13.9 SECONDS (9.7-12.2) H 12/16/17 23:14 INR 1.3 12/16/17 23:14 APTT 33 SECONDS (21-34) 12/16/17 23:14
[2017-12-21] MEDS: Vancomycin 1 gm/NS 200 ml 1 GM/200 ML BAG IVPB SCH ×3 (00:27→18:44)
[2017-12-21] MEDS: Acetaminophen 650mg/20.3ml solution UD PEG SCH ×5 (00:28→23:16)
[2017-12-21] MEDS: Piperacill/Tazo 3.375gm in Dex 3.375 GM/50 ML BAG IVPB SCH ×3 (03:00→18:46)
[2017-12-21] MEDS: metroNIDAZOLE IV 500 mg/100 ml 500 MG/100 ML BAG IVPB SCH ×3 (06:11→23:23)
[2017-12-21] MEDS: Albuterol-Ipratrop 3 mg / 0.5 (3 ml) UD IH SCH (07:24)
[2017-12-21] MEDS: Magnesium Hydroxide Susp 30 ml UD PEG SCH (09:27)
[2017-12-21] MEDS: Multiple Vitamins Oral Solution PEG SCH (09:28)
[2017-12-21] MEDS: Pantoprazole 40 mg Susp UD PO SCH (09:30)
[2017-12-21] MEDS: Amantadine 50 mg/5 ml Syrup (473 ml) PEG SCH ×2 (09:30→18:37)
--- NOTE | 2017-12-21 11:05 | CP.PCM.PN ---
<Hiram Aguirre - Last Filed: 12/21/17 11:02> Subjective - Date & Time of Evaluation Date of Evaluation: 12/21/17 Time of Evaluation: 11:02 - Subjective Subjective: General Surgery Progress note for Dr. Enriquez This 82F was seen and examined this AM at bedside. No acute events overnight per nurse. Patient has poor verbal capacity however does not endorse any pain. Objective - Vital Signs/Intake and Output Vital Signs (last 24 hours): Temp Pulse Resp BP Pulse Ox 98.5 F 81 18 137/82 100 12/21/17 08:35 12/21/17 08:35 12/21/17 08:35 12/21/17 08:35 12/21/17 08:35 Intake and Output: 12/21/17 12/21/17 06:59 18:59 Intake Total 800 Output Total 850 Balance -50 - Medications Medications: Current Medications Acetaminophen (Tylenol 650mg/20.3ml Solution Ud) 650 mg PEG Q4 [facility] Last Admin: 12/21/17 08:07 Dose: Not Given Albuterol/Ipratropium (Duoneb 3 Mg/0.5 Mg (3 Ml) Ud) 3 ml IH RQ24 [facility] Last Admin: 12/21/17 07:24 Dose: 3 ml Amantadine HCl (Symmetrel) 100 mg PEG BID [facility] Last Admin: 12/21/17 09:30 Dose: Not Given Amlodipine Besylate (Norvasc) 5 mg PEG DAILY [facility] Last Admin: 12/21/17 09:28 Dose: Not Given Aspirin (Aspirin Chewable) 81 mg PEG DAILY [facility] Last Admin: 12/21/17 09:25 Dose: Not Given Calcium Carbonate (Oscal) 500 mg PO BID [facility] Last Admin: 12/21/17 09:29 Dose: Not Given Carbidopa/Levodopa (Sinemet) 1 tab GT TID [facility] Last Admin: 12/21/17 09:30 Dose: Not Given Enoxaparin Sodium (Lovenox) 30 mg SC DAILY [facility] Last Admin: 12/20/17 10:44 Dose: 30 mg Entacapone (Comtan) 200 mg PEG Q8 [facility] Last Admin: 12/21/17 05:20 Dose: Not Given Ergocalciferol (Drisdol 50,000 Intl Units Cap) 1 cap PO QWK [facility] Last Admin: 12/17/17 12:06 Dose: 1 cap Furosemide (Lasix) 40 mg PEG DAILY [facility] Last Admin: 12/21/17 09:27 Dose: Not Given Hydralazine HCl (Apresoline) 50 mg PEG Q6 [facility] Last Admin: 12/21/17 05:20 Dose: Not Given Metronidazole (Flagyl) 500 mg in 100 mls @ 100 mls/hr IVPB Q8 [facility] PRN Reason: Protocol Last Admin: 12/21/17 06:11 Dose: 100 mls/hr Piperacillin Sod/Tazobactam Sod (Zosyn 3.375 Gm Iv Premix) 3.375 gm in 50 mls @ 100 mls/hr IVPB Q8H [facility] PRN Reason: Protocol Last Admin: 12/21/17 09:30 Dose: 100 mls/hr Vancomycin/Sodium Chloride (Vancomycin 1 Gm/Ns 200 Ml) 1 gm in 200 mls @ 166.6 mls/hr IVPB Q12H [facility] PRN Reason: Protocol Stop: 12/25/17 12:01 Last Admin: 12/21/17 00:27 Dose: 166.6 mls/hr Lamotrigine (Lamictal) 25 mg PEG Q12 [facility] Last Admin: 12/21/17 09:26 Dose: Not Given Magnesium Hydroxide (Milk Of Magnesia) 30 ml PEG DAILY [facility] Last Admin: 12/21/17 09:27 Dose: Not Given Memantine (Namenda) 10 mg PEG DAILY [facility] Last Admin: 12/21/17 09:28 Dose: Not Given Metoprolol Tartrate (Lopressor) 25 mg PEG DAILY [facility] Last Admin: 12/21/17 09:27 Dose: Not Given Multivitamins/Vitamin C (Multi-Delyn Liquid) 5 ml PEG DAILY [facility] Last Admin: 12/21/17 09:28 Dose: Not Given Mupirocin (Bactroban Ointment) 0 gm TOP BID [facility] Last Admin: 12/21/17 09:26 Dose: 1 appl Ondansetron HCl (Zofran Tab) 4 mg PEG Q8 [facility] Last Admin: 12/21/17 05:21 Dose: Not Given Pantoprazole Sodium (Protonix Susp) 40 mg PO DAILY [facility] Last Admin: 12/21/17 09:30 Dose: Not Given Rosuvastatin Calcium (Crestor) 10 mg PEG HS [facility] Last Admin: 12/20/17 22:00 Dose: Not Given Simethicone (Mylicon Liq) 80 mg PEG Q8 [facility] PRN Reason: GAS - Labs Labs: 12/19/17 22:21 12/20/17 06:16 PT 13.9 SECONDS (9.7-12.2) H 12/16/17 23:14 INR 1.3 12/16/17 23:14 APTT 33 SECONDS (21-34) 12/16/17 23:14 - Constitutional Appears: Non-toxic, No Acute Distress - Head Exam Head Exam: NORMAL INSPECTION - Eye Exam Eye Exam: EOMI - Respiratory Exam Respiratory Exam: NORMAL BREATHING PATTERN - Cardiovascular Exam Cardiovascular Exam: +S1, +S2 - GI/Abdominal Exam GI & Abdominal Exam: Soft. absent: Tenderness Additional comments: G-Tube in place - Extremities Exam Extremities Exam: Normal Inspection - Neurological Exam Neurological Exam: Altered - Psychiatric Exam Psychiatric exam: Normal Affect, Normal Mood - Skin Skin Exam: Dry, Intact Assessment and Plan - Assessment and Plan (Free Text) Assessment: 82F with malfunctioning g-tube Vital Signs stable Plan: Patient likely today for g-tube evaluation and exchange with the gastroenterology team Medical management per primary team D/W Dr. Zoe Aguirre PGY2 [phone] <Abhijeet Enirquez B - Last Filed: 12/23/17 18:34> Objective - Vital Signs/Intake and Output Vital Signs (last 24 hours): Temp Pulse Resp BP Pulse Ox 98.0 F 67 18 106/60 100 12/23/17 15:59 12/23/17 15:59 12/23/17 15:59 12/23/17 15:59 12/23/17 15:59 Intake and Output: 12/23/17 12/23/17 06:59 18:59 Intake Total 360 300 Output Total 625 800 Balance -265 -500 - Medications Medications: Current Medications Acetaminophen (Tylenol 650mg/20.3ml Solution Ud) 650 mg PEG Q4 [facility] Last Admin: 12/23/17 17:04 Dose: 650 mg Albuterol/Ipratropium (Duoneb 3 Mg/0.5 Mg (3 Ml) Ud) 3 ml IH RQ24 [facility] Last Admin: 12/23/17 07:26 Dose: 3 ml Amlodipine Besylate (Norvasc) 5 mg PEG DAILY [facility] Last Admin: 12/23/17 10:32 Dose: 5 mg Aspirin (Aspirin Chewable) 81 mg PEG DAILY [facility] Last Admin: 12/23/17 10:32 Dose: 81 mg Calcium Carbonate (Oscal) 500 mg PO BID [facility] Last Admin: 12/23/17 17:02 Dose: 500 mg Carbidopa/Levodopa (Sinemet) 1 tab GT TID [facility] Last Admin: 12/23/17 17:02 Dose: 1 tab Enoxaparin Sodium (Lovenox) 30 mg SC DAILY [facility] Last Admin: 12/23/17 10:31 Dose: 30 mg Entacapone (Comtan) 200 mg PEG Q8 [facility] Last Admin: 12/23/17 13:05 Dose: 200 mg Ergocalciferol (Drisdol 50,000 Intl Units Cap) 1 cap PO QWK [facility] Last Admin: 12/17/17 12:06 Dose: 1 cap Furosemide (Lasix) 40 mg PEG DAILY [facility] Last Admin: 12/23/17 10:33 Dose: 40 mg Hydralazine HCl (Apresoline) 50 mg PEG Q6 [facility] Last Admin: 12/23/17 17:01 Dose: 50 mg Piperacillin Sod/Tazobactam Sod (Zosyn 3.375 Gm Iv Premix) 3.375 gm in 50 mls @ 100 mls/hr IVPB Q8H [facility] PRN Reason: Protocol Last Admin: 12/23/17 18:20 Dose: 100 mls/hr Ciprofloxacin (Cipro 200mg/100ml D5w) 100 mls @ 67 mls/hr IVPB Q12H [facility] PRN Reason: Protocol Stop: 12/31/17 05:30 Last Admin: 12/23/17 16:42 Dose: 67 mls/hr Vancomycin/Sodium Chloride (Vancomycin 1 Gm/Ns 200 Ml) 1 gm in 200 mls @ 166.7 mls/hr IVPB Q24H [facility] PRN Reason: Protocol Stop: 12/26/17 17:01 Last Admin: 12/23/17 16:44 Dose: 166.7 mls/hr Lamotrigine (Lamictal) 25 mg PEG Q12 [facility] Last Admin: 12/23/17 10:34 Dose: 25 mg Magnesium Hydroxide (Milk Of Magnesia) 30 ml PEG DAILY [facility] Last Admin: 12/23/17 10:50 Dose: 30 ml Memantine (Namenda) 10 mg PEG DAILY [facility] Last Admin: 12/23/17 10:32 Dose: 10 mg Metoprolol Tartrate (Lopressor) 25 mg PEG DAILY [facility] Last Admin: 12/23/17 10:32 Dose: 25 mg Multivitamins/Vitamin C (Multi-Delyn Liquid) 5 ml PEG DAILY [facility] Last Admin: 12/23/17 10:34 Dose: 5 ml Mupirocin (Bactroban Ointment) 0 gm TOP BID [facility] Last Admin: 12/23/17 17:05 Dose: 1 appl Ondansetron HCl (Zofran Tab) 4 mg PEG Q8 [facility] Last Admin: 12/23/17 13:15 Dose: 4 mg Pantoprazole Sodium (Protonix Susp) 40 mg PO DAILY [facility] Last Admin: 12/23/17 10:33 Dose: 40 mg Rosuvastatin Calcium (Crestor) 10 mg PEG HS [facility] Last Admin: 12/22/17 21:40 Dose: 10 mg Simethicone (Mylicon Liq) 80 mg PEG Q8 PRN PRN Reason: GAS - Labs Labs: 12/19/17 22:21 12/20/17 06:16 PT 13.9 SECONDS (9.7-12.2) H 12/16/17 23:14 INR 1.3 12/16/17 23:14 APTT 33 SECONDS (21-34) 12/16/17 23:14 Attending/Attestation - Attestation I have personally seen and examined this patient.: Yes I have fully participated in the care of the patient.: Yes I have reviewed all pertinent clinical information, including history, physical exam and plan: Yes Notes (Text): Pt is seen and examined at bedside Agree with above note and assessment Cellulitis is improving clinically IV antibiotics No surgical intervention required Plan d.w pt in detail Risk and benefit explained in detail.
[2017-12-21] MEDS: Enoxaparin 30 mg Syringe SC SCH (13:32)
[2017-12-21] MEDS ORDERED: Propofol 10 mg/ml Inj (20 ML) ONE (13:59)
[2017-12-21] MEDS ORDERED: Bacitracin 500 Units/gm Oint Foilpak UD ONE (14:10)
--- NOTE | 2017-12-21 15:35 | CP.PCM.PN ---
Subjective - Date & Time of Evaluation Date of Evaluation: 12/21/17 Time of Evaluation: 09:00 - Subjective Subjective: blood culturers + for staph epi came with GT site infection afeb confused NAD IV Vanco to cont willl repeat cultures await gi eval Objective - Vital Signs/Intake and Output Vital Signs (last 24 hours): Temp Pulse Resp BP Pulse Ox 97.3 F L 84 22 152/75 H 100 12/21/17 15:11 12/21/17 15:11 12/21/17 15:11 12/21/17 15:11 12/21/17 15:11 Intake and Output: 12/21/17 12/21/17 06:59 18:59 Intake Total 800 300 Output Total 850 300 Balance -50 0 - Medications Medications: Current Medications Acetaminophen (Tylenol 650mg/20.3ml Solution Ud) 650 mg PEG Q4 [facility] Last Admin: 12/21/17 13:31 Dose: Not Given Albuterol/Ipratropium (Duoneb 3 Mg/0.5 Mg (3 Ml) Ud) 3 ml IH RQ24 [facility] Last Admin: 12/21/17 07:24 Dose: 3 ml Amantadine HCl (Symmetrel) 100 mg PEG BID [facility] Last Admin: 12/21/17 09:30 Dose: Not Given Amlodipine Besylate (Norvasc) 5 mg PEG DAILY [facility] Last Admin: 12/21/17 09:28 Dose: Not Given Aspirin (Aspirin Chewable) 81 mg PEG DAILY [facility] Last Admin: 12/21/17 09:25 Dose: Not Given Calcium Carbonate (Oscal) 500 mg PO BID [facility] Last Admin: 12/21/17 09:29 Dose: Not Given Carbidopa/Levodopa (Sinemet) 1 tab GT TID [facility] Last Admin: 12/21/17 13:31 Dose: Not Given Enoxaparin Sodium (Lovenox) 30 mg SC DAILY [facility] Last Admin: 12/21/17 13:32 Dose: Not Given Entacapone (Comtan) 200 mg PEG Q8 [facility] Last Admin: 12/21/17 13:30 Dose: Not Given Ergocalciferol (Drisdol 50,000 Intl Units Cap) 1 cap PO QWK [facility] Last Admin: 12/17/17 12:06 Dose: 1 cap Furosemide (Lasix) 40 mg PEG DAILY [facility] Last Admin: 12/21/17 09:27 Dose: Not Given Hydralazine HCl (Apresoline) 50 mg PEG Q6 [facility] Last Admin: 12/21/17 13:30 Dose: Not Given Metronidazole (Flagyl) 500 mg in 100 mls @ 100 mls/hr IVPB Q8 [facility] PRN Reason: Protocol Last Admin: 12/21/17 14:15 Dose: 100 mls Piperacillin Sod/Tazobactam Sod (Zosyn 3.375 Gm Iv Premix) 3.375 gm in 50 mls @ 100 mls/hr IVPB Q8H [facility] PRN Reason: Protocol Last Admin: 12/21/17 09:30 Dose: 100 mls/hr Ciprofloxacin (Cipro 200mg/100ml D5w) 100 mls @ 67 mls/hr IVPB Q12H [facility] PRN Reason: Protocol Stop: 12/31/17 05:30 Lamotrigine (Lamictal) 25 mg PEG Q12 [facility] Last Admin: 12/21/17 09:26 Dose: Not Given Magnesium Hydroxide (Milk Of Magnesia) 30 ml PEG DAILY [facility] Last Admin: 12/21/17 09:27 Dose: Not Given Memantine (Namenda) 10 mg PEG DAILY [facility] Last Admin: 12/21/17 09:28 Dose: Not Given Metoprolol Tartrate (Lopressor) 25 mg PEG DAILY [facility] Last Admin: 12/21/17 09:27 Dose: Not Given Multivitamins/Vitamin C (Multi-Delyn Liquid) 5 ml PEG DAILY [facility] Last Admin: 12/21/17 09:28 Dose: Not Given Mupirocin (Bactroban Ointment) 0 gm TOP BID [facility] Last Admin: 12/21/17 09:26 Dose: 1 appl Ondansetron HCl (Zofran Tab) 4 mg PEG Q8 [facility] Last Admin: 12/21/17 13:31 Dose: Not Given Pantoprazole Sodium (Protonix Susp) 40 mg PO DAILY [facility] Last Admin: 12/21/17 09:30 Dose: Not Given Rosuvastatin Calcium (Crestor) 10 mg PEG HS [facility] Last Admin: 12/20/17 22:00 Dose: Not Given Simethicone (Mylicon Liq) 80 mg PEG Q8 PRN PRN Reason: GAS - Labs Labs: 12/19/17 22:21 12/20/17 06:16 PT 13.9 SECONDS (9.7-12.2) H 12/16/17 23:14 INR 1.3 12/16/17 23:14 APTT 33 SECONDS (21-34) 12/16/17 23:14 - Constitutional Appears: Non-toxic, Cachectic, Chronically Ill - Head Exam Head Exam: NORMOCEPHALIC - Eye Exam Eye Exam: PERRL - ENT Exam ENT Exam: Mucous Membranes Dry - Neck Exam Neck Exam: absent: Lymphadenopathy - Respiratory Exam Respiratory Exam: Decreased Breath Sounds - Cardiovascular Exam Cardiovascular Exam: REGULAR RHYTHM - GI/Abdominal Exam GI & Abdominal Exam: Distended, Soft Assessment and Plan (1) Dehydration Status: Acute (2) Fever Status: Acute (3) Sepsis Status: Acute (4) UTI (urinary tract infection) Status: Chronic (5) Altered mental status Status: Acute (6) Problem with gastrostomy tube Status: Acute
--- NOTE | 2017-12-21 17:16 | CP.PCM.PN ---
Subjective - Date & Time of Evaluation Date of Evaluation: 12/21/17 Time of Evaluation: 17:16 Objective - Vital Signs/Intake and Output Vital Signs (last 24 hours): Temp Pulse Resp BP Pulse Ox 98.0 F 88 20 156/85 H 100 12/21/17 16:01 12/21/17 16:01 12/21/17 16:01 12/21/17 16:01 12/21/17 16:01 Intake and Output: 12/21/17 12/21/17 06:59 18:59 Intake Total 800 300 Output Total 850 300 Balance -50 0 - Medications Medications: Current Medications Acetaminophen (Tylenol 650mg/20.3ml Solution Ud) 650 mg PEG Q4 [facility] Last Admin: 12/21/17 13:31 Dose: Not Given Albuterol/Ipratropium (Duoneb 3 Mg/0.5 Mg (3 Ml) Ud) 3 ml IH RQ24 [facility] Last Admin: 12/21/17 07:24 Dose: 3 ml Amantadine HCl (Symmetrel) 100 mg PEG BID [facility] Last Admin: 12/21/17 09:30 Dose: Not Given Amlodipine Besylate (Norvasc) 5 mg PEG DAILY [facility] Last Admin: 12/21/17 09:28 Dose: Not Given Aspirin (Aspirin Chewable) 81 mg PEG DAILY [facility] Last Admin: 12/21/17 09:25 Dose: Not Given Calcium Carbonate (Oscal) 500 mg PO BID [facility] Last Admin: 12/21/17 09:29 Dose: Not Given Carbidopa/Levodopa (Sinemet) 1 tab GT TID [facility] Last Admin: 12/21/17 13:31 Dose: Not Given Enoxaparin Sodium (Lovenox) 30 mg SC DAILY [facility] Last Admin: 12/21/17 13:32 Dose: Not Given Entacapone (Comtan) 200 mg PEG Q8 [facility] Last Admin: 12/21/17 13:30 Dose: Not Given Ergocalciferol (Drisdol 50,000 Intl Units Cap) 1 cap PO QWK [facility] Last Admin: 12/17/17 12:06 Dose: 1 cap Furosemide (Lasix) 40 mg PEG DAILY [facility] Last Admin: 12/21/17 09:27 Dose: Not Given Hydralazine HCl (Apresoline) 50 mg PEG Q6 [facility] Last Admin: 12/21/17 13:30 Dose: Not Given Metronidazole (Flagyl) 500 mg in 100 mls @ 100 mls/hr IVPB Q8 [facility] PRN Reason: Protocol Last Admin: 12/21/17 14:15 Dose: 100 mls Piperacillin Sod/Tazobactam Sod (Zosyn 3.375 Gm Iv Premix) 3.375 gm in 50 mls @ 100 mls/hr IVPB Q8H [facility] PRN Reason: Protocol Last Admin: 12/21/17 09:30 Dose: 100 mls/hr Ciprofloxacin (Cipro 200mg/100ml D5w) 100 mls @ 67 mls/hr IVPB Q12H [facility] PRN Reason: Protocol Stop: 12/31/17 05:30 Vancomycin/Sodium Chloride (Vancomycin 1 Gm/Ns 200 Ml) 1 gm in 200 mls @ 166.7 mls/hr IVPB Q24H [facility] PRN Reason: Protocol Stop: 12/26/17 17:01 Lamotrigine (Lamictal) 25 mg PEG Q12 [facility] Last Admin: 12/21/17 09:26 Dose: Not Given Magnesium Hydroxide (Milk Of Magnesia) 30 ml PEG DAILY [facility] Last Admin: 12/21/17 09:27 Dose: Not Given Memantine (Namenda) 10 mg PEG DAILY [facility] Last Admin: 12/21/17 09:28 Dose: Not Given Metoprolol Tartrate (Lopressor) 25 mg PEG DAILY [facility] Last Admin: 12/21/17 09:27 Dose: Not Given Multivitamins/Vitamin C (Multi-Delyn Liquid) 5 ml PEG DAILY [facility] Last Admin: 12/21/17 09:28 Dose: Not Given Mupirocin (Bactroban Ointment) 0 gm TOP BID [facility] Last Admin: 12/21/17 09:26 Dose: 1 appl Ondansetron HCl (Zofran Tab) 4 mg PEG Q8 [facility] Last Admin: 12/21/17 13:31 Dose: Not Given Pantoprazole Sodium (Protonix Susp) 40 mg PO DAILY [facility] Last Admin: 12/21/17 09:30 Dose: Not Given Rosuvastatin Calcium (Crestor) 10 mg PEG HS [facility] Last Admin: 12/20/17 22:00 Dose: Not Given Simethicone (Mylicon Liq) 80 mg PEG Q8 PRN PRN Reason: GAS - Labs Labs: 12/19/17 22:21 12/20/17 06:16 PT 13.9 SECONDS (9.7-12.2) H 12/16/17 23:14 INR 1.3 12/16/17 23:14 APTT 33 SECONDS (21-34) 12/16/17 23:14
[2017-12-21] MEDS: Ciprofloxacin 200mg/100ml D5W 100 ML IVPB SCH (18:04)
--- NOTE | 2017-12-21 19:08 | CP.PCM.PN ---
Subjective - Date & Time of Evaluation Date of Evaluation: 12/21/17 Time of Evaluation: 11:40 - Subjective Subjective: clinically same Objective - Vital Signs/Intake and Output Vital Signs (last 24 hours): Temp Pulse Resp BP Pulse Ox 98.0 F 88 20 156/85 H 100 12/21/17 16:01 12/21/17 16:01 12/21/17 16:01 12/21/17 16:01 12/21/17 16:01 Intake and Output: 12/21/17 12/22/17 18:59 06:59 Intake Total 300 Output Total 300 Balance 0 - Medications Medications: Current Medications Acetaminophen (Tylenol 650mg/20.3ml Solution Ud) 650 mg PEG Q4 [facility] Last Admin: 12/21/17 13:31 Dose: Not Given Albuterol/Ipratropium (Duoneb 3 Mg/0.5 Mg (3 Ml) Ud) 3 ml IH RQ24 [facility] Last Admin: 12/21/17 07:24 Dose: 3 ml Amantadine HCl (Symmetrel) 100 mg PEG BID [facility] Last Admin: 12/21/17 18:37 Dose: 100 mg Amlodipine Besylate (Norvasc) 5 mg PEG DAILY [facility] Last Admin: 12/21/17 09:28 Dose: Not Given Aspirin (Aspirin Chewable) 81 mg PEG DAILY [facility] Last Admin: 12/21/17 09:25 Dose: Not Given Calcium Carbonate (Oscal) 500 mg PO BID [facility] Last Admin: 12/21/17 18:33 Dose: 500 mg Carbidopa/Levodopa (Sinemet) 1 tab GT TID [facility] Last Admin: 12/21/17 18:44 Dose: 1 tab Enoxaparin Sodium (Lovenox) 30 mg SC DAILY [facility] Last Admin: 12/21/17 13:32 Dose: Not Given Entacapone (Comtan) 200 mg PEG Q8 [facility] Last Admin: 12/21/17 13:30 Dose: Not Given Ergocalciferol (Drisdol 50,000 Intl Units Cap) 1 cap PO QWK [facility] Last Admin: 12/17/17 12:06 Dose: 1 cap Furosemide (Lasix) 40 mg PEG DAILY [facility] Last Admin: 12/21/17 09:27 Dose: Not Given Hydralazine HCl (Apresoline) 50 mg PEG Q6 [facility] Last Admin: 12/21/17 18:31 Dose: 50 mg Metronidazole (Flagyl) 500 mg in 100 mls @ 100 mls/hr IVPB Q8 [facility] PRN Reason: Protocol Last Admin: 12/21/17 14:15 Dose: 100 mls Piperacillin Sod/Tazobactam Sod (Zosyn 3.375 Gm Iv Premix) 3.375 gm in 50 mls @ 100 mls/hr IVPB Q8H [facility] PRN Reason: Protocol Last Admin: 12/21/17 18:46 Dose: 100 mls/hr Ciprofloxacin (Cipro 200mg/100ml D5w) 100 mls @ 67 mls/hr IVPB Q12H [facility] PRN Reason: Protocol Stop: 12/31/17 05:30 Last Admin: 12/21/17 18:04 Dose: 67 mls/hr Vancomycin/Sodium Chloride (Vancomycin 1 Gm/Ns 200 Ml) 1 gm in 200 mls @ 166.7 mls/hr IVPB Q24H [facility] PRN Reason: Protocol Stop: 12/26/17 17:01 Last Admin: 12/21/17 18:44 Dose: 166.7 mls/hr Lamotrigine (Lamictal) 25 mg PEG Q12 [facility] Last Admin: 12/21/17 09:26 Dose: Not Given Magnesium Hydroxide (Milk Of Magnesia) 30 ml PEG DAILY [facility] Last Admin: 12/21/17 09:27 Dose: Not Given Memantine (Namenda) 10 mg PEG DAILY [facility] Last Admin: 12/21/17 09:28 Dose: Not Given Metoprolol Tartrate (Lopressor) 25 mg PEG DAILY [facility] Last Admin: 12/21/17 09:27 Dose: Not Given Multivitamins/Vitamin C (Multi-Delyn Liquid) 5 ml PEG DAILY [facility] Last Admin: 12/21/17 09:28 Dose: Not Given Mupirocin (Bactroban Ointment) 0 gm TOP BID [facility] Last Admin: 12/21/17 18:32 Dose: 1 appl Ondansetron HCl (Zofran Tab) 4 mg PEG Q8 [facility] Last Admin: 12/21/17 13:31 Dose: Not Given Pantoprazole Sodium (Protonix Susp) 40 mg PO DAILY [facility] Last Admin: 12/21/17 09:30 Dose: Not Given Rosuvastatin Calcium (Crestor) 10 mg PEG HS [facility] Last Admin: 12/20/17 22:00 Dose: Not Given Simethicone (Mylicon Liq) 80 mg PEG Q8 PRN PRN Reason: GAS - Labs Labs: 12/19/17 22:21 12/20/17 06:16 PT 13.9 SECONDS (9.7-12.2) H 12/16/17 23:14 INR 1.3 12/16/17 23:14 APTT 33 SECONDS (21-34) 12/16/17 23:14 - Constitutional Appears: Well - Head Exam Head Exam: ATRAUMATIC, NORMAL INSPECTION, NORMOCEPHALIC - Eye Exam Eye Exam: EOMI, Normal appearance, PERRL Pupil Exam: NORMAL ACCOMODATION, PERRL - ENT Exam ENT Exam: Mucous Membranes Moist, Normal Exam - Neck Exam Neck Exam: Full ROM, Normal Inspection. absent: Lymphadenopathy - Respiratory Exam Respiratory Exam: Decreased Breath Sounds - Cardiovascular Exam Cardiovascular Exam: REGULAR RHYTHM, +S1, +S2 - GI/Abdominal Exam GI & Abdominal Exam: Soft, Diminished Bowel Sounds - Rectal Exam Rectal Exam: Deferred
[2017-12-22] MEDS: Piperacill/Tazo 3.375gm in Dex 3.375 GM/50 ML BAG IVPB SCH ×3 (02:34→19:26)
[2017-12-22] MEDS: Acetaminophen 650mg/20.3ml solution UD PEG SCH ×6 (02:40→19:28)
[2017-12-22] MEDS: Ciprofloxacin 200mg/100ml D5W 100 ML IVPB SCH ×2 (04:44→16:22)
[2017-12-22] MEDS: metroNIDAZOLE IV 500 mg/100 ml 500 MG/100 ML BAG IVPB SCH ×3 (06:26→21:41)
[2017-12-22] MEDS: Albuterol-Ipratrop 3 mg / 0.5 (3 ml) UD IH SCH (07:19)
[2017-12-22] MEDS: Pantoprazole 40 mg Susp UD PO SCH (11:43)
[2017-12-22] MEDS: Multiple Vitamins Oral Solution PEG SCH (11:43)
[2017-12-22] MEDS: Amantadine 50 mg/5 ml Syrup (473 ml) PEG SCH ×2 (11:44→19:27)
[2017-12-22] MEDS: Magnesium Hydroxide Susp 30 ml UD PEG SCH (11:44)
[2017-12-22] MEDS: Enoxaparin 30 mg Syringe SC SCH (11:44)
--- NOTE | 2017-12-22 16:02 | CP.PCM.PN ---
Subjective - Date & Time of Evaluation Date of Evaluation: 12/22/17 Time of Evaluation: 16:00 - Subjective Subjective: DISCUSSED PLAN FOR D/C AND ABX WITH DR. GEE TODAY. STILL PENDING RESULTS OF REPEAT BLOOD CULTURES, THEY WERE DRAWN YESTERDAY. PER Luanne GEE, FOR NOW WE WILL CONTINUE VANCO AND ZOSYN IV X14 DAYS. PT IS FOR PICC INSERTION TOMORROW MORNING WITH DR. OSBORNE IN [place]. I DISCUSSED THIS WITH PT'S DAUGHTER AND POA, JOSE LEIVA, AND SHE IS IN AGREEMENT WITH PICC AND PLAN FOR D/C TOMORROW. SHE DOES PREFER TO DISCUSS THE PICC INSERTION WITH DR. OSBORNE TOMORROW MORNING PRIOR TO THE PROCEDURE; I HAVE GIVEN HIM HER PHONE NUMBER AND SHE IS AWARE THAT HE WILL CONTACT HE IN THE MORNING FOR CONSENT. NO FURTHER ORDERS. Objective - Vital Signs/Intake and Output Vital Signs (last 24 hours): Temp Pulse Resp BP Pulse Ox 97.7 F 74 20 125/65 98 12/22/17 08:52 12/22/17 08:52 12/22/17 08:52 12/22/17 11:43 12/22/17 08:52 Intake and Output: 12/22/17 12/22/17 06:59 18:59 Intake Total 950 Output Total 400 Balance 550 - Medications Medications: Current Medications Acetaminophen (Tylenol 650mg/20.3ml Solution Ud) 650 mg PEG Q4 [facility] Last Admin: 12/22/17 11:42 Dose: 650 mg Albuterol/Ipratropium (Duoneb 3 Mg/0.5 Mg (3 Ml) Ud) 3 ml IH RQ24 [facility] Last Admin: 12/22/17 07:19 Dose: 3 ml Amantadine HCl (Symmetrel) 100 mg PEG BID [facility] Last Admin: 12/22/17 11:44 Dose: 100 mg Amlodipine Besylate (Norvasc) 5 mg PEG DAILY [facility] Last Admin: 12/22/17 11:43 Dose: 5 mg Aspirin (Aspirin Chewable) 81 mg PEG DAILY [facility] Last Admin: 12/22/17 11:44 Dose: 81 mg Calcium Carbonate (Oscal) 500 mg PO BID [facility] Last Admin: 12/22/17 11:44 Dose: 500 mg Carbidopa/Levodopa (Sinemet) 1 tab GT TID [facility] Last Admin: 12/22/17 14:48 Dose: 1 tab Enoxaparin Sodium (Lovenox) 30 mg SC DAILY [facility] Last Admin: 12/22/17 11:44 Dose: 30 mg Entacapone (Comtan) 200 mg PEG Q8 [facility] Last Admin: 12/22/17 14:48 Dose: 200 mg Ergocalciferol (Drisdol 50,000 Intl Units Cap) 1 cap PO QWK [facility] Last Admin: 12/17/17 12:06 Dose: 1 cap Furosemide (Lasix) 40 mg PEG DAILY [facility] Last Admin: 12/22/17 11:43 Dose: 40 mg Hydralazine HCl (Apresoline) 50 mg PEG Q6 [facility] Last Admin: 12/22/17 11:45 Dose: Not Given Metronidazole (Flagyl) 500 mg in 100 mls @ 100 mls/hr IVPB Q8 [facility] PRN Reason: Protocol Last Admin: 12/22/17 14:48 Dose: 100 mls/hr Piperacillin Sod/Tazobactam Sod (Zosyn 3.375 Gm Iv Premix) 3.375 gm in 50 mls @ 100 mls/hr IVPB Q8H [facility] PRN Reason: Protocol Last Admin: 12/22/17 11:42 Dose: 100 mls/hr Ciprofloxacin (Cipro 200mg/100ml D5w) 100 mls @ 67 mls/hr IVPB Q12H [facility] PRN Reason: Protocol Stop: 12/31/17 05:30 Last Admin: 12/22/17 04:44 Dose: 67 mls/hr Vancomycin/Sodium Chloride (Vancomycin 1 Gm/Ns 200 Ml) 1 gm in 200 mls @ 166.7 mls/hr IVPB Q24H [facility] PRN Reason: Protocol Stop: 12/26/17 17:01 Last Admin: 12/21/17 18:44 Dose: 166.7 mls/hr Lamotrigine (Lamictal) 25 mg PEG Q12 [facility] Last Admin: 12/22/17 11:42 Dose: 25 mg Magnesium Hydroxide (Milk Of Magnesia) 30 ml PEG DAILY [facility] Last Admin: 12/22/17 11:44 Dose: 30 ml Memantine (Namenda) 10 mg PEG DAILY [facility] Last Admin: 12/22/17 11:44 Dose: 10 mg Metoprolol Tartrate (Lopressor) 25 mg PEG DAILY [facility] Last Admin: 12/22/17 11:43 Dose: 25 mg Multivitamins/Vitamin C (Multi-Delyn Liquid) 5 ml PEG DAILY [facility] Last Admin: 12/22/17 11:43 Dose: 5 ml Mupirocin (Bactroban Ointment) 0 gm TOP BID [facility] Last Admin: 12/22/17 11:41 Dose: 1 appl Ondansetron HCl (Zofran Tab) 4 mg PEG Q8 [facility] Last Admin: 12/22/17 14:48 Dose: 4 mg Pantoprazole Sodium (Protonix Susp) 40 mg PO DAILY [facility] Last Admin: 12/22/17 11:43 Dose: 40 mg Rosuvastatin Calcium (Crestor) 10 mg PEG HS [facility] Last Admin: 12/21/17 23:15 Dose: 10 mg Simethicone (Mylicon Liq) 80 mg PEG Q8 PRN PRN Reason: GAS - Labs Labs: 12/19/17 22:21 12/20/17 06:16 PT 13.9 SECONDS (9.7-12.2) H 12/16/17 23:14 INR 1.3 12/16/17 23:14 APTT 33 SECONDS (21-34) 12/16/17 23:14
--- NOTE | 2017-12-22 16:03 | CP.PCM.PN ---
Subjective - Date & Time of Evaluation Date of Evaluation: 12/22/17 Time of Evaluation: 08:00 - Subjective Subjective: discussed on rounds' no change clinically need neg cultures befoore discharge unclear how long rx needed dr hitchcock on board Objective - Vital Signs/Intake and Output Vital Signs (last 24 hours): Temp Pulse Resp BP Pulse Ox 97.7 F 74 20 125/65 98 12/22/17 08:52 12/22/17 08:52 12/22/17 08:52 12/22/17 11:43 12/22/17 08:52 Intake and Output: 12/22/17 12/22/17 06:59 18:59 Intake Total 950 Output Total 400 Balance 550 - Medications Medications: Current Medications Acetaminophen (Tylenol 650mg/20.3ml Solution Ud) 650 mg PEG Q4 [facility] Last Admin: 12/22/17 11:42 Dose: 650 mg Albuterol/Ipratropium (Duoneb 3 Mg/0.5 Mg (3 Ml) Ud) 3 ml IH RQ24 [facility] Last Admin: 12/22/17 07:19 Dose: 3 ml Amantadine HCl (Symmetrel) 100 mg PEG BID [facility] Last Admin: 12/22/17 11:44 Dose: 100 mg Amlodipine Besylate (Norvasc) 5 mg PEG DAILY [facility] Last Admin: 12/22/17 11:43 Dose: 5 mg Aspirin (Aspirin Chewable) 81 mg PEG DAILY [facility] Last Admin: 12/22/17 11:44 Dose: 81 mg Calcium Carbonate (Oscal) 500 mg PO BID [facility] Last Admin: 12/22/17 11:44 Dose: 500 mg Carbidopa/Levodopa (Sinemet) 1 tab GT TID [facility] Last Admin: 12/22/17 14:48 Dose: 1 tab Enoxaparin Sodium (Lovenox) 30 mg SC DAILY [facility] Last Admin: 12/22/17 11:44 Dose: 30 mg Entacapone (Comtan) 200 mg PEG Q8 [facility] Last Admin: 12/22/17 14:48 Dose: 200 mg Ergocalciferol (Drisdol 50,000 Intl Units Cap) 1 cap PO QWK [facility] Last Admin: 12/17/17 12:06 Dose: 1 cap Furosemide (Lasix) 40 mg PEG DAILY [facility] Last Admin: 12/22/17 11:43 Dose: 40 mg Hydralazine HCl (Apresoline) 50 mg PEG Q6 [facility] Last Admin: 12/22/17 11:45 Dose: Not Given Metronidazole (Flagyl) 500 mg in 100 mls @ 100 mls/hr IVPB Q8 [facility] PRN Reason: Protocol Last Admin: 12/22/17 14:48 Dose: 100 mls/hr Piperacillin Sod/Tazobactam Sod (Zosyn 3.375 Gm Iv Premix) 3.375 gm in 50 mls @ 100 mls/hr IVPB Q8H [facility] PRN Reason: Protocol Last Admin: 12/22/17 11:42 Dose: 100 mls/hr Ciprofloxacin (Cipro 200mg/100ml D5w) 100 mls @ 67 mls/hr IVPB Q12H [facility] PRN Reason: Protocol Stop: 12/31/17 05:30 Last Admin: 12/22/17 04:44 Dose: 67 mls/hr Vancomycin/Sodium Chloride (Vancomycin 1 Gm/Ns 200 Ml) 1 gm in 200 mls @ 166.7 mls/hr IVPB Q24H [facility] PRN Reason: Protocol Stop: 12/26/17 17:01 Last Admin: 12/21/17 18:44 Dose: 166.7 mls/hr Lamotrigine (Lamictal) 25 mg PEG Q12 [facility] Last Admin: 12/22/17 11:42 Dose: 25 mg Magnesium Hydroxide (Milk Of Magnesia) 30 ml PEG DAILY [facility] Last Admin: 12/22/17 11:44 Dose: 30 ml Memantine (Namenda) 10 mg PEG DAILY [facility] Last Admin: 12/22/17 11:44 Dose: 10 mg Metoprolol Tartrate (Lopressor) 25 mg PEG DAILY [facility] Last Admin: 12/22/17 11:43 Dose: 25 mg Multivitamins/Vitamin C (Multi-Delyn Liquid) 5 ml PEG DAILY [facility] Last Admin: 12/22/17 11:43 Dose: 5 ml Mupirocin (Bactroban Ointment) 0 gm TOP BID [facility] Last Admin: 12/22/17 11:41 Dose: 1 appl Ondansetron HCl (Zofran Tab) 4 mg PEG Q8 [facility] Last Admin: 12/22/17 14:48 Dose: 4 mg Pantoprazole Sodium (Protonix Susp) 40 mg PO DAILY [facility] Last Admin: 12/22/17 11:43 Dose: 40 mg Rosuvastatin Calcium (Crestor) 10 mg PEG HS [facility] Last Admin: 12/21/17 23:15 Dose: 10 mg Simethicone (Mylicon Liq) 80 mg PEG Q8 PRN PRN Reason: GAS - Labs Labs: 12/19/17 22:21 12/20/17 06:16 PT 13.9 SECONDS (9.7-12.2) H 12/16/17 23:14 INR 1.3 12/16/17 23:14 APTT 33 SECONDS (21-34) 12/16/17 23:14 Assessment and Plan (1) Dehydration Status: Acute (2) Fever Status: Acute (3) Sepsis Status: Acute (4) UTI (urinary tract infection) Status: Chronic (5) Altered mental status Status: Acute (6) Problem with gastrostomy tube Status: Acute
[2017-12-22] MEDS: Vancomycin 1 gm/NS 200 ml 1 GM/200 ML BAG IVPB SCH (17:44)
--- NOTE | 2017-12-22 17:47 | CP.PCM.PN ---
Subjective - Date & Time of Evaluation Date of Evaluation: 12/22/17 Time of Evaluation: 17:47 Objective - Vital Signs/Intake and Output Vital Signs (last 24 hours): Temp Pulse Resp BP Pulse Ox 97.4 F L 67 18 106/63 100 12/22/17 15:24 12/22/17 15:24 12/22/17 15:24 12/22/17 15:24 12/22/17 15:24 Intake and Output: 12/22/17 12/22/17 06:59 18:59 Intake Total 950 485 Output Total 400 350 Balance 550 135 - Medications Medications: Current Medications Acetaminophen (Tylenol 650mg/20.3ml Solution Ud) 650 mg PEG Q4 [facility] Last Admin: 12/22/17 16:22 Dose: 650 mg Albuterol/Ipratropium (Duoneb 3 Mg/0.5 Mg (3 Ml) Ud) 3 ml IH RQ24 [facility] Last Admin: 12/22/17 07:19 Dose: 3 ml Amantadine HCl (Symmetrel) 100 mg PEG BID [facility] Last Admin: 12/22/17 11:44 Dose: 100 mg Amlodipine Besylate (Norvasc) 5 mg PEG DAILY [facility] Last Admin: 12/22/17 11:43 Dose: 5 mg Aspirin (Aspirin Chewable) 81 mg PEG DAILY [facility] Last Admin: 12/22/17 11:44 Dose: 81 mg Calcium Carbonate (Oscal) 500 mg PO BID [facility] Last Admin: 12/22/17 11:44 Dose: 500 mg Carbidopa/Levodopa (Sinemet) 1 tab GT TID [facility] Last Admin: 12/22/17 14:48 Dose: 1 tab Enoxaparin Sodium (Lovenox) 30 mg SC DAILY [facility] Last Admin: 12/22/17 11:44 Dose: 30 mg Entacapone (Comtan) 200 mg PEG Q8 [facility] Last Admin: 12/22/17 14:48 Dose: 200 mg Ergocalciferol (Drisdol 50,000 Intl Units Cap) 1 cap PO QWK [facility] Last Admin: 12/17/17 12:06 Dose: 1 cap Furosemide (Lasix) 40 mg PEG DAILY [facility] Last Admin: 12/22/17 11:43 Dose: 40 mg Hydralazine HCl (Apresoline) 50 mg PEG Q6 [facility] Last Admin: 12/22/17 11:45 Dose: Not Given Metronidazole (Flagyl) 500 mg in 100 mls @ 100 mls/hr IVPB Q8 [facility] PRN Reason: Protocol Last Admin: 12/22/17 14:48 Dose: 100 mls/hr Piperacillin Sod/Tazobactam Sod (Zosyn 3.375 Gm Iv Premix) 3.375 gm in 50 mls @ 100 mls/hr IVPB Q8H [facility] PRN Reason: Protocol Last Admin: 12/22/17 11:42 Dose: 100 mls/hr Ciprofloxacin (Cipro 200mg/100ml D5w) 100 mls @ 67 mls/hr IVPB Q12H [facility] PRN Reason: Protocol Stop: 12/31/17 05:30 Last Admin: 12/22/17 16:22 Dose: 67 mls/hr Vancomycin/Sodium Chloride (Vancomycin 1 Gm/Ns 200 Ml) 1 gm in 200 mls @ 166.7 mls/hr IVPB Q24H [facility] PRN Reason: Protocol Stop: 12/26/17 17:01 Last Admin: 12/22/17 17:44 Dose: 166.7 mls/hr Lamotrigine (Lamictal) 25 mg PEG Q12 [facility] Last Admin: 12/22/17 11:42 Dose: 25 mg Magnesium Hydroxide (Milk Of Magnesia) 30 ml PEG DAILY [facility] Last Admin: 12/22/17 11:44 Dose: 30 ml Memantine (Namenda) 10 mg PEG DAILY [facility] Last Admin: 12/22/17 11:44 Dose: 10 mg Metoprolol Tartrate (Lopressor) 25 mg PEG DAILY [facility] Last Admin: 12/22/17 11:43 Dose: 25 mg Multivitamins/Vitamin C (Multi-Delyn Liquid) 5 ml PEG DAILY [facility] Last Admin: 12/22/17 11:43 Dose: 5 ml Mupirocin (Bactroban Ointment) 0 gm TOP BID [facility] Last Admin: 12/22/17 11:41 Dose: 1 appl Ondansetron HCl (Zofran Tab) 4 mg PEG Q8 [facility] Last Admin: 12/22/17 14:48 Dose: 4 mg Pantoprazole Sodium (Protonix Susp) 40 mg PO DAILY [facility] Last Admin: 12/22/17 11:43 Dose: 40 mg Rosuvastatin Calcium (Crestor) 10 mg PEG HS [facility] Last Admin: 12/21/17 23:15 Dose: 10 mg Simethicone (Mylicon Liq) 80 mg PEG Q8 PRN PRN Reason: GAS - Labs Labs: 12/19/17 22:21 12/20/17 06:16 PT 13.9 SECONDS (9.7-12.2) H 12/16/17 23:14 INR 1.3 12/16/17 23:14 APTT 33 SECONDS (21-34) 12/16/17 23:14
--- NOTE | 2017-12-22 18:25 | CP.PCM.PN ---
Subjective - Date & Time of Evaluation Date of Evaluation: 12/22/17 Time of Evaluation: 09:40 - Subjective Subjective: clinically same Objective - Vital Signs/Intake and Output Vital Signs (last 24 hours): Temp Pulse Resp BP Pulse Ox 97.4 F L 67 18 106/63 100 12/22/17 15:24 12/22/17 15:24 12/22/17 15:24 12/22/17 15:24 12/22/17 15:24 Intake and Output: 12/22/17 12/22/17 06:59 18:59 Intake Total 950 485 Output Total 400 350 Balance 550 135 - Medications Medications: Current Medications Acetaminophen (Tylenol 650mg/20.3ml Solution Ud) 650 mg PEG Q4 [facility] Last Admin: 12/22/17 16:22 Dose: 650 mg Albuterol/Ipratropium (Duoneb 3 Mg/0.5 Mg (3 Ml) Ud) 3 ml IH RQ24 [facility] Last Admin: 12/22/17 07:19 Dose: 3 ml Amantadine HCl (Symmetrel) 100 mg PEG BID [facility] Last Admin: 12/22/17 11:44 Dose: 100 mg Amlodipine Besylate (Norvasc) 5 mg PEG DAILY [facility] Last Admin: 12/22/17 11:43 Dose: 5 mg Aspirin (Aspirin Chewable) 81 mg PEG DAILY [facility] Last Admin: 12/22/17 11:44 Dose: 81 mg Calcium Carbonate (Oscal) 500 mg PO BID [facility] Last Admin: 12/22/17 11:44 Dose: 500 mg Carbidopa/Levodopa (Sinemet) 1 tab GT TID [facility] Last Admin: 12/22/17 14:48 Dose: 1 tab Enoxaparin Sodium (Lovenox) 30 mg SC DAILY [facility] Last Admin: 12/22/17 11:44 Dose: 30 mg Entacapone (Comtan) 200 mg PEG Q8 [facility] Last Admin: 12/22/17 14:48 Dose: 200 mg Ergocalciferol (Drisdol 50,000 Intl Units Cap) 1 cap PO QWK [facility] Last Admin: 12/17/17 12:06 Dose: 1 cap Furosemide (Lasix) 40 mg PEG DAILY [facility] Last Admin: 12/22/17 11:43 Dose: 40 mg Hydralazine HCl (Apresoline) 50 mg PEG Q6 [facility] Last Admin: 12/22/17 11:45 Dose: Not Given Metronidazole (Flagyl) 500 mg in 100 mls @ 100 mls/hr IVPB Q8 [facility] PRN Reason: Protocol Last Admin: 12/22/17 14:48 Dose: 100 mls/hr Piperacillin Sod/Tazobactam Sod (Zosyn 3.375 Gm Iv Premix) 3.375 gm in 50 mls @ 100 mls/hr IVPB Q8H [facility] PRN Reason: Protocol Last Admin: 12/22/17 11:42 Dose: 100 mls/hr Ciprofloxacin (Cipro 200mg/100ml D5w) 100 mls @ 67 mls/hr IVPB Q12H [facility] PRN Reason: Protocol Stop: 12/31/17 05:30 Last Admin: 12/22/17 16:22 Dose: 67 mls/hr Vancomycin/Sodium Chloride (Vancomycin 1 Gm/Ns 200 Ml) 1 gm in 200 mls @ 166.7 mls/hr IVPB Q24H [facility] PRN Reason: Protocol Stop: 12/26/17 17:01 Last Admin: 12/22/17 17:44 Dose: 166.7 mls/hr Lamotrigine (Lamictal) 25 mg PEG Q12 [facility] Last Admin: 12/22/17 11:42 Dose: 25 mg Magnesium Hydroxide (Milk Of Magnesia) 30 ml PEG DAILY [facility] Last Admin: 12/22/17 11:44 Dose: 30 ml Memantine (Namenda) 10 mg PEG DAILY [facility] Last Admin: 12/22/17 11:44 Dose: 10 mg Metoprolol Tartrate (Lopressor) 25 mg PEG DAILY [facility] Last Admin: 12/22/17 11:43 Dose: 25 mg Multivitamins/Vitamin C (Multi-Delyn Liquid) 5 ml PEG DAILY [facility] Last Admin: 12/22/17 11:43 Dose: 5 ml Mupirocin (Bactroban Ointment) 0 gm TOP BID [facility] Last Admin: 12/22/17 11:41 Dose: 1 appl Ondansetron HCl (Zofran Tab) 4 mg PEG Q8 [facility] Last Admin: 12/22/17 14:48 Dose: 4 mg Pantoprazole Sodium (Protonix Susp) 40 mg PO DAILY [facility] Last Admin: 12/22/17 11:43 Dose: 40 mg Rosuvastatin Calcium (Crestor) 10 mg PEG HS [facility] Last Admin: 12/21/17 23:15 Dose: 10 mg Simethicone (Mylicon Liq) 80 mg PEG Q8 PRN PRN Reason: GAS - Labs Labs: 12/19/17 22:21 12/20/17 06:16 PT 13.9 SECONDS (9.7-12.2) H 12/16/17 23:14 INR 1.3 12/16/17 23:14 APTT 33 SECONDS (21-34) 12/16/17 23:14 - Constitutional Appears: Well - Head Exam Head Exam: ATRAUMATIC, NORMAL INSPECTION, NORMOCEPHALIC - Eye Exam Eye Exam: EOMI, Normal appearance, PERRL Pupil Exam: NORMAL ACCOMODATION, PERRL - ENT Exam ENT Exam: Mucous Membranes Moist, Normal Exam - Neck Exam Neck Exam: Full ROM, Normal Inspection. absent: Lymphadenopathy - Respiratory Exam Respiratory Exam: Decreased Breath Sounds - Cardiovascular Exam Cardiovascular Exam: REGULAR RHYTHM, +S1, +S2 - GI/Abdominal Exam GI & Abdominal Exam: Soft, Diminished Bowel Sounds - Rectal Exam Rectal Exam: Deferred
[2017-12-23] MEDS: Acetaminophen 650mg/20.3ml solution UD PEG SCH ×6 (00:22→23:06)
[2017-12-23] MEDS: Piperacill/Tazo 3.375gm in Dex 3.375 GM/50 ML BAG IVPB SCH ×3 (01:32→18:20)
[2017-12-23] MEDS: Ciprofloxacin 200mg/100ml D5W 100 ML IVPB SCH ×2 (03:29→16:42)
[2017-12-23] MEDS: metroNIDAZOLE IV 500 mg/100 ml 500 MG/100 ML BAG IVPB SCH ×2 (05:59→13:02)
[2017-12-23] MEDS: Albuterol-Ipratrop 3 mg / 0.5 (3 ml) UD IH SCH (07:26)
[2017-12-23] MEDS: Enoxaparin 30 mg Syringe SC SCH (10:31)
[2017-12-23] MEDS: Amantadine 50 mg/5 ml Syrup (473 ml) PEG SCH (10:33)
[2017-12-23] MEDS: Pantoprazole 40 mg Susp UD PO SCH (10:33)
[2017-12-23] MEDS: Multiple Vitamins Oral Solution PEG SCH (10:34)
[2017-12-23] MEDS: Magnesium Hydroxide Susp 30 ml UD PEG SCH (10:50)
--- NOTE | 2017-12-23 12:28 | CP.PCM.PN ---
Subjective - Date & Time of Evaluation Date of Evaluation: 12/23/17 Time of Evaluation: 12:22 - Subjective Subjective: PT STABLE THIS MORNING; PEG FEEDINGS BEING TOLERATED. PT FOR PICC INSERTION TODAY BY PICC SIVAN ARELLANO. ONCE PICC PLACEMENT IS CONFIRMED THE PT CAN BE D/C BACK TO THE [facility] PER DR. MCMANUS. PICC LINE CONSENT SIGNED WITH SIVAN CEE AFTER DISCUSSED THE BENEFITS/RISKS OF PICC LINE WITH PT'S HAY/JOSE PHAM. JOSE ALSO MADE AWARE OF D/C PLAN AND ABX X14 DAYS AND IN AGREEMENT WITH THE PLAN. I DISCUSSED REPEAT BLOOD CX WITH DR. GEE. WILL CONTINUE IV VANCO AND ZOSYN X14 DAYS PER DR. GEE. PT TO BE FOLLOWED BY DR. MCMANUS AT [facility]. NO FURTHER ORDERS. SW TO ARRANGE TRANSPORTATION FOR THIS AFTERNOON. -PLACE UNDER THE SERVICE OF DR. Gabriele MCMANUS WHILE AT [facility]----CALL DR. MCMANUS UPON ARRIVAL FOR ADMITTING ORDERS. -CONTINUE PEG FEEDINGS PER DR. Laila MCMANUS. -CONTINUE MEDICATIONS PER THE MED REC FORM----CHANGES CAN BE MADE BY DR. MCMANUS. -PICC LINE CARE PER FACILITY PROTOCOL. -PER DR. GEE (ID), CONTINUE ANTIBIOTICS ORDERED: VANCOMYCIN 1 GM IV DAILY AND ZOSYN 3.375 GM IV Q8 HOURS--GIVE BOTH FOR 14 DAYS (START ON 12/24/17 AND THE LAST DAY TO BE GIVEN IS 01/07/18). -PHYSICAL THERAPY TOLERATED. -FOR FURTHER ORDERS, CONTACT DR. MCMANUS'S OFFICE. Objective - Vital Signs/Intake and Output Vital Signs (last 24 hours): Temp Pulse Resp BP Pulse Ox 98.1 F 75 22 117/66 99 12/23/17 07:04 12/23/17 07:40 12/23/17 07:04 12/23/17 10:33 12/23/17 07:04 Intake and Output: 12/23/17 12/23/17 06:59 18:59 Intake Total 360 Output Total 625 Balance -265 - Medications Medications: Current Medications Acetaminophen (Tylenol 650mg/20.3ml Solution Ud) 650 mg PEG Q4 [facility] Last Admin: 12/23/17 08:27 Dose: 650 mg Albuterol/Ipratropium (Duoneb 3 Mg/0.5 Mg (3 Ml) Ud) 3 ml IH RQ24 [facility] Last Admin: 12/23/17 07:26 Dose: 3 ml Amlodipine Besylate (Norvasc) 5 mg PEG DAILY [facility] Last Admin: 12/23/17 10:32 Dose: 5 mg Aspirin (Aspirin Chewable) 81 mg PEG DAILY [facility] Last Admin: 12/23/17 10:32 Dose: 81 mg Calcium Carbonate (Oscal) 500 mg PO BID [facility] Last Admin: 12/23/17 10:32 Dose: 500 mg Carbidopa/Levodopa (Sinemet) 1 tab GT TID [facility] Last Admin: 12/23/17 10:35 Dose: 1 tab Enoxaparin Sodium (Lovenox) 30 mg SC DAILY [facility] Last Admin: 12/23/17 10:31 Dose: 30 mg Entacapone (Comtan) 200 mg PEG Q8 [facility] Last Admin: 12/23/17 05:59 Dose: 200 mg Ergocalciferol (Drisdol 50,000 Intl Units Cap) 1 cap PO QWK [facility] Last Admin: 12/17/17 12:06 Dose: 1 cap Furosemide (Lasix) 40 mg PEG DAILY [facility] Last Admin: 12/23/17 10:33 Dose: 40 mg Hydralazine HCl (Apresoline) 50 mg PEG Q6 [facility] Last Admin: 12/23/17 05:59 Dose: 50 mg Metronidazole (Flagyl) 500 mg in 100 mls @ 100 mls/hr IVPB Q8 [facility] PRN Reason: Protocol Last Admin: 12/23/17 05:59 Dose: 100 mls/hr Piperacillin Sod/Tazobactam Sod (Zosyn 3.375 Gm Iv Premix) 3.375 gm in 50 mls @ 100 mls/hr IVPB Q8H [facility] PRN Reason: Protocol Last Admin: 12/23/17 10:50 Dose: 100 mls/hr Ciprofloxacin (Cipro 200mg/100ml D5w) 100 mls @ 67 mls/hr IVPB Q12H [facility] PRN Reason: Protocol Stop: 12/31/17 05:30 Last Admin: 12/23/17 03:29 Dose: 67 mls/hr Vancomycin/Sodium Chloride (Vancomycin 1 Gm/Ns 200 Ml) 1 gm in 200 mls @ 166.7 mls/hr IVPB Q24H [facility] PRN Reason: Protocol Stop: 12/26/17 17:01 Last Admin: 12/22/17 17:44 Dose: 166.7 mls/hr Lamotrigine (Lamictal) 25 mg PEG Q12 [facility] Last Admin: 12/23/17 10:34 Dose: 25 mg Magnesium Hydroxide (Milk Of Magnesia) 30 ml PEG DAILY [facility] Last Admin: 12/23/17 10:50 Dose: 30 ml Memantine (Namenda) 10 mg PEG DAILY [facility] Last Admin: 12/23/17 10:32 Dose: 10 mg Metoprolol Tartrate (Lopressor) 25 mg PEG DAILY [facility] Last Admin: 12/23/17 10:32 Dose: 25 mg Multivitamins/Vitamin C (Multi-Delyn Liquid) 5 ml PEG DAILY [facility] Last Admin: 12/23/17 10:34 Dose: 5 ml Mupirocin (Bactroban Ointment) 0 gm TOP BID [facility] Last Admin: 12/23/17 10:34 Dose: 1 appl Ondansetron HCl (Zofran Tab) 4 mg PEG Q8 [facility] Last Admin: 12/23/17 05:59 Dose: 4 mg Pantoprazole Sodium (Protonix Susp) 40 mg PO DAILY [facility] Last Admin: 12/23/17 10:33 Dose: 40 mg Rosuvastatin Calcium (Crestor) 10 mg PEG HS [facility] Last Admin: 12/22/17 21:40 Dose: 10 mg Simethicone (Mylicon Liq) 80 mg PEG Q8 PRN PRN Reason: GAS - Labs Labs: 12/19/17 22:21 12/20/17 06:16 PT 13.9 SECONDS (9.7-12.2) H 12/16/17 23:14 INR 1.3 12/16/17 23:14 APTT 33 SECONDS (21-34) 12/16/17 23:14
--- NOTE | 2017-12-23 13:00 | PN ---
DATE: LOCATION: 669, bed B. SUBJECTIVE: This is an 82-year-old female post new PEG insertion, seen and examined in rounds without significant clinical changes, tolerating PEG feeding well without any residual or resistant. The entire chart is reviewed including but not limited to the most recent lab and radiology study results, current and the previous medication list, current and the previous medical events. Case discussed with the staff at length. Today's lab results are still pending; however, the most recent lab results showed leukocytosis with low hemoglobin and hematocrit with low phosphorus, high magnesium with low albumin. PHYSICAL EXAMINATION: GENERAL: An 82-year-old female. VITAL SIGNS: Afebrile, with pulse of 72, respiratory rate 18 to 20, blood pressure 130/64. HEENT: Showed pale, dry oral mucoid membranes. Nonicteric sclerae. LUNGS: Few scattered crepitations. Decreased air entry at bases. HEART: Positive S1 and S2. ABDOMEN: Soft with PEG tube in place. No evidence of anterior abdominal cellulitis. EXTREMITIES: Without significant clubbing, cyanosis, or edema. NEUROLOGIC: No reported new neurological deficits, sensory or motor. IMPRESSION: 1. Malnutrition. 2. Status post PEG insertion. 3. Hypoalbuminemia, hypoproteinemia. 4. Anemia secondary to above. 5. Known history of hypertension, bronchial asthma, parkinsonian disease, with seizure disorder and dementia. 6. Known history of peptic ulcer disease. SUGGESTIONS: 1. Continue current management. 2. Increase rate of feeding as tolerated. 3. Further recommendations to follow. Dre Bell MD
--- NOTE | 2017-12-23 15:47 | RAD ---
HISTORY: verify right PICC COMPARISON: 12/16/2017. FINDINGS: The right PICC line terminates in the right atrium. LUNGS: The lungs are clear. PLEURA: No significant pleural effusion identified, no pneumothorax apparent. CARDIOVASCULAR: The heart is normal in size. Atherosclerotic aortic arch calcifications are present. OSSEOUS STRUCTURES: No significant abnormalities. VISUALIZED UPPER ABDOMEN: Normal. OTHER FINDINGS: None. IMPRESSION: The right PICC line terminates in the right atrium. No pneumothorax. No acute findings.
--- NOTE | 2017-12-23 15:48 | CP.PCM.PN ---
Subjective - Date & Time of Evaluation Date of Evaluation: 12/23/17 Time of Evaluation: 15:47 Objective - Vital Signs/Intake and Output Vital Signs (last 24 hours): Temp Pulse Resp BP Pulse Ox 98.1 F 75 22 110/65 99 12/23/17 07:04 12/23/17 07:40 12/23/17 07:04 12/23/17 13:00 12/23/17 07:04 Intake and Output: 12/23/17 12/23/17 06:59 18:59 Intake Total 360 300 Output Total 625 800 Balance -265 -500 - Medications Medications: Current Medications Acetaminophen (Tylenol 650mg/20.3ml Solution Ud) 650 mg PEG Q4 [facility] Last Admin: 12/23/17 13:00 Dose: 650 mg Albuterol/Ipratropium (Duoneb 3 Mg/0.5 Mg (3 Ml) Ud) 3 ml IH RQ24 [facility] Last Admin: 12/23/17 07:26 Dose: 3 ml Amlodipine Besylate (Norvasc) 5 mg PEG DAILY [facility] Last Admin: 12/23/17 10:32 Dose: 5 mg Aspirin (Aspirin Chewable) 81 mg PEG DAILY [facility] Last Admin: 12/23/17 10:32 Dose: 81 mg Calcium Carbonate (Oscal) 500 mg PO BID [facility] Last Admin: 12/23/17 10:32 Dose: 500 mg Carbidopa/Levodopa (Sinemet) 1 tab GT TID [facility] Last Admin: 12/23/17 13:05 Dose: 1 tab Enoxaparin Sodium (Lovenox) 30 mg SC DAILY [facility] Last Admin: 12/23/17 10:31 Dose: 30 mg Entacapone (Comtan) 200 mg PEG Q8 [facility] Last Admin: 12/23/17 13:05 Dose: 200 mg Ergocalciferol (Drisdol 50,000 Intl Units Cap) 1 cap PO QWK [facility] Last Admin: 12/17/17 12:06 Dose: 1 cap Furosemide (Lasix) 40 mg PEG DAILY [facility] Last Admin: 12/23/17 10:33 Dose: 40 mg Hydralazine HCl (Apresoline) 50 mg PEG Q6 [facility] Last Admin: 12/23/17 13:00 Dose: 50 mg Piperacillin Sod/Tazobactam Sod (Zosyn 3.375 Gm Iv Premix) 3.375 gm in 50 mls @ 100 mls/hr IVPB Q8H [facility] PRN Reason: Protocol Last Admin: 12/23/17 10:50 Dose: 100 mls/hr Ciprofloxacin (Cipro 200mg/100ml D5w) 100 mls @ 67 mls/hr IVPB Q12H [facility] PRN Reason: Protocol Stop: 12/31/17 05:30 Last Admin: 12/23/17 03:29 Dose: 67 mls/hr Vancomycin/Sodium Chloride (Vancomycin 1 Gm/Ns 200 Ml) 1 gm in 200 mls @ 166.7 mls/hr IVPB Q24H [facility] PRN Reason: Protocol Stop: 12/26/17 17:01 Last Admin: 12/22/17 17:44 Dose: 166.7 mls/hr Lamotrigine (Lamictal) 25 mg PEG Q12 [facility] Last Admin: 12/23/17 10:34 Dose: 25 mg Magnesium Hydroxide (Milk Of Magnesia) 30 ml PEG DAILY [facility] Last Admin: 12/23/17 10:50 Dose: 30 ml Memantine (Namenda) 10 mg PEG DAILY [facility] Last Admin: 12/23/17 10:32 Dose: 10 mg Metoprolol Tartrate (Lopressor) 25 mg PEG DAILY [facility] Last Admin: 12/23/17 10:32 Dose: 25 mg Multivitamins/Vitamin C (Multi-Delyn Liquid) 5 ml PEG DAILY [facility] Last Admin: 12/23/17 10:34 Dose: 5 ml Mupirocin (Bactroban Ointment) 0 gm TOP BID [facility] Last Admin: 12/23/17 10:34 Dose: 1 appl Ondansetron HCl (Zofran Tab) 4 mg PEG Q8 [facility] Last Admin: 12/23/17 13:15 Dose: 4 mg Pantoprazole Sodium (Protonix Susp) 40 mg PO DAILY [facility] Last Admin: 12/23/17 10:33 Dose: 40 mg Rosuvastatin Calcium (Crestor) 10 mg PEG HS [facility] Last Admin: 12/22/17 21:40 Dose: 10 mg Simethicone (Mylicon Liq) 80 mg PEG Q8 PRN PRN Reason: GAS - Labs Labs: 12/19/17 22:21 12/20/17 06:16 PT 13.9 SECONDS (9.7-12.2) H 12/16/17 23:14 INR 1.3 12/16/17 23:14 APTT 33 SECONDS (21-34) 12/16/17 23:14
[2017-12-23] MEDS: Vancomycin 1 gm/NS 200 ml 1 GM/200 ML BAG IVPB SCH (16:44)
[2017-12-23 17:00] VITALS: O2SAT 100
--- NOTE | 2017-12-23 17:33 | CP.PCM.PN ---
Subjective - Date & Time of Evaluation Date of Evaluation: 12/23/17 Time of Evaluation: 08:00 - Subjective Subjective: seeen on roundws iv rx reordered Objective - Vital Signs/Intake and Output Vital Signs (last 24 hours): Temp Pulse Resp BP Pulse Ox 98.0 F 67 18 106/60 100 12/23/17 15:59 12/23/17 15:59 12/23/17 15:59 12/23/17 15:59 12/23/17 15:59 Intake and Output: 12/23/17 12/23/17 06:59 18:59 Intake Total 360 300 Output Total 625 800 Balance -265 -500 - Medications Medications: Current Medications Acetaminophen (Tylenol 650mg/20.3ml Solution Ud) 650 mg PEG Q4 [facility] Last Admin: 12/23/17 17:04 Dose: 650 mg Albuterol/Ipratropium (Duoneb 3 Mg/0.5 Mg (3 Ml) Ud) 3 ml IH RQ24 [facility] Last Admin: 12/23/17 07:26 Dose: 3 ml Amlodipine Besylate (Norvasc) 5 mg PEG DAILY [facility] Last Admin: 12/23/17 10:32 Dose: 5 mg Aspirin (Aspirin Chewable) 81 mg PEG DAILY [facility] Last Admin: 12/23/17 10:32 Dose: 81 mg Calcium Carbonate (Oscal) 500 mg PO BID [facility] Last Admin: 12/23/17 17:02 Dose: 500 mg Carbidopa/Levodopa (Sinemet) 1 tab GT TID [facility] Last Admin: 12/23/17 17:02 Dose: 1 tab Enoxaparin Sodium (Lovenox) 30 mg SC DAILY [facility] Last Admin: 12/23/17 10:31 Dose: 30 mg Entacapone (Comtan) 200 mg PEG Q8 [facility] Last Admin: 12/23/17 13:05 Dose: 200 mg Ergocalciferol (Drisdol 50,000 Intl Units Cap) 1 cap PO QWK [facility] Last Admin: 12/17/17 12:06 Dose: 1 cap Furosemide (Lasix) 40 mg PEG DAILY [facility] Last Admin: 12/23/17 10:33 Dose: 40 mg Hydralazine HCl (Apresoline) 50 mg PEG Q6 [facility] Last Admin: 12/23/17 17:01 Dose: 50 mg Piperacillin Sod/Tazobactam Sod (Zosyn 3.375 Gm Iv Premix) 3.375 gm in 50 mls @ 100 mls/hr IVPB Q8H [facility] PRN Reason: Protocol Last Admin: 12/23/17 10:50 Dose: 100 mls/hr Ciprofloxacin (Cipro 200mg/100ml D5w) 100 mls @ 67 mls/hr IVPB Q12H [facility] PRN Reason: Protocol Stop: 12/31/17 05:30 Last Admin: 12/23/17 16:42 Dose: 67 mls/hr Vancomycin/Sodium Chloride (Vancomycin 1 Gm/Ns 200 Ml) 1 gm in 200 mls @ 166.7 mls/hr IVPB Q24H SHANIKA PRN Reason: Protocol Stop: 12/26/17 17:01 Last Admin: 12/23/17 16:44 Dose: 166.7 mls/hr Lamotrigine (Lamictal) 25 mg PEG Q12 [facility] Last Admin: 12/23/17 10:34 Dose: 25 mg Magnesium Hydroxide (Milk Of Magnesia) 30 ml PEG DAILY [facility] Last Admin: 12/23/17 10:50 Dose: 30 ml Memantine (Namenda) 10 mg PEG DAILY [facility] Last Admin: 12/23/17 10:32 Dose: 10 mg Metoprolol Tartrate (Lopressor) 25 mg PEG DAILY [facility] Last Admin: 12/23/17 10:32 Dose: 25 mg Multivitamins/Vitamin C (Multi-Delyn Liquid) 5 ml PEG DAILY [facility] Last Admin: 12/23/17 10:34 Dose: 5 ml Mupirocin (Bactroban Ointment) 0 gm TOP BID [facility] Last Admin: 12/23/17 17:05 Dose: 1 appl Ondansetron HCl (Zofran Tab) 4 mg PEG Q8 [facility] Last Admin: 12/23/17 13:15 Dose: 4 mg Pantoprazole Sodium (Protonix Susp) 40 mg PO DAILY [facility] Last Admin: 12/23/17 10:33 Dose: 40 mg Rosuvastatin Calcium (Crestor) 10 mg PEG HS [facility] Last Admin: 12/22/17 21:40 Dose: 10 mg Simethicone (Mylicon Liq) 80 mg PEG Q8 PRN PRN Reason: GAS - Labs Labs: 12/19/17 22:21 12/20/17 06:16 PT 13.9 SECONDS (9.7-12.2) H 12/16/17 23:14 INR 1.3 12/16/17 23:14 APTT 33 SECONDS (21-34) 12/16/17 23:14 - Constitutional Appears: Confused, Chronically Ill - Head Exam Head Exam: NORMOCEPHALIC - Eye Exam Eye Exam: PERRL - ENT Exam ENT Exam: Mucous Membranes Dry - Neck Exam Neck Exam: absent: Lymphadenopathy - Respiratory Exam Respiratory Exam: Decreased Breath Sounds - Cardiovascular Exam Cardiovascular Exam: REGULAR RHYTHM - GI/Abdominal Exam GI & Abdominal Exam: Distended, Soft Assessment and Plan (1) Dehydration Status: Acute (2) Fever Status: Acute (3) Sepsis Status: Acute (4) UTI (urinary tract infection) Status: Chronic (5) Altered mental status Status: Acute (6) Problem with gastrostomy tube Status: Acute
--- NOTE | 2017-12-23 19:15 | CP.PCM.PN ---
Subjective - Date & Time of Evaluation Date of Evaluation: 12/23/17 Time of Evaluation: 09:40 - Subjective Subjective: clinically same Objective - Vital Signs/Intake and Output Vital Signs (last 24 hours): Temp Pulse Resp BP Pulse Ox 98.0 F 67 18 106/60 100 12/23/17 15:59 12/23/17 15:59 12/23/17 15:59 12/23/17 15:59 12/23/17 15:59 Intake and Output: 12/23/17 12/24/17 18:59 06:59 Intake Total 300 Output Total 800 Balance -500 - Medications Medications: Current Medications Acetaminophen (Tylenol 650mg/20.3ml Solution Ud) 650 mg PEG Q4 [facility] Last Admin: 12/23/17 17:04 Dose: 650 mg Albuterol/Ipratropium (Duoneb 3 Mg/0.5 Mg (3 Ml) Ud) 3 ml IH RQ24 [facility] Last Admin: 12/23/17 07:26 Dose: 3 ml Amlodipine Besylate (Norvasc) 5 mg PEG DAILY [facility] Last Admin: 12/23/17 10:32 Dose: 5 mg Aspirin (Aspirin Chewable) 81 mg PEG DAILY [facility] Last Admin: 12/23/17 10:32 Dose: 81 mg Calcium Carbonate (Oscal) 500 mg PO BID [facility] Last Admin: 12/23/17 17:02 Dose: 500 mg Carbidopa/Levodopa (Sinemet) 1 tab GT TID [facility] Last Admin: 12/23/17 17:02 Dose: 1 tab Enoxaparin Sodium (Lovenox) 30 mg SC DAILY [facility] Last Admin: 12/23/17 10:31 Dose: 30 mg Entacapone (Comtan) 200 mg PEG Q8 [facility] Last Admin: 12/23/17 13:05 Dose: 200 mg Ergocalciferol (Drisdol 50,000 Intl Units Cap) 1 cap PO QWK [facility] Last Admin: 12/17/17 12:06 Dose: 1 cap Furosemide (Lasix) 40 mg PEG DAILY [facility] Last Admin: 12/23/17 10:33 Dose: 40 mg Hydralazine HCl (Apresoline) 50 mg PEG Q6 [facility] Last Admin: 12/23/17 17:01 Dose: 50 mg Piperacillin Sod/Tazobactam Sod (Zosyn 3.375 Gm Iv Premix) 3.375 gm in 50 mls @ 100 mls/hr IVPB Q8H SHANIKA PRN Reason: Protocol Last Admin: 12/23/17 18:20 Dose: 100 mls/hr Ciprofloxacin (Cipro 200mg/100ml D5w) 100 mls @ 67 mls/hr IVPB Q12H SHANIKA PRN Reason: Protocol Stop: 12/31/17 05:30 Last Admin: 12/23/17 16:42 Dose: 67 mls/hr Vancomycin/Sodium Chloride (Vancomycin 1 Gm/Ns 200 Ml) 1 gm in 200 mls @ 166.7 mls/hr IVPB Q24H SHANIKA PRN Reason: Protocol Stop: 12/26/17 17:01 Last Admin: 12/23/17 16:44 Dose: 166.7 mls/hr Lamotrigine (Lamictal) 25 mg PEG Q12 [facility] Last Admin: 12/23/17 10:34 Dose: 25 mg Magnesium Hydroxide (Milk Of Magnesia) 30 ml PEG DAILY [facility] Last Admin: 12/23/17 10:50 Dose: 30 ml Memantine (Namenda) 10 mg PEG DAILY [facility] Last Admin: 12/23/17 10:32 Dose: 10 mg Metoprolol Tartrate (Lopressor) 25 mg PEG DAILY [facility] Last Admin: 12/23/17 10:32 Dose: 25 mg Multivitamins/Vitamin C (Multi-Delyn Liquid) 5 ml PEG DAILY [facility] Last Admin: 12/23/17 10:34 Dose: 5 ml Mupirocin (Bactroban Ointment) 0 gm TOP BID [facility] Last Admin: 12/23/17 17:05 Dose: 1 appl Ondansetron HCl (Zofran Tab) 4 mg PEG Q8 [facility] Last Admin: 12/23/17 13:15 Dose: 4 mg Pantoprazole Sodium (Protonix Susp) 40 mg PO DAILY [facility] Last Admin: 12/23/17 10:33 Dose: 40 mg Rosuvastatin Calcium (Crestor) 10 mg PEG HS [facility] Last Admin: 12/22/17 21:40 Dose: 10 mg Simethicone (Mylicon Liq) 80 mg PEG Q8 PRN PRN Reason: GAS - Labs Labs: 12/19/17 22:21 12/20/17 06:16 PT 13.9 SECONDS (9.7-12.2) H 12/16/17 23:14 INR 1.3 12/16/17 23:14 APTT 33 SECONDS (21-34) 12/16/17 23:14 - Constitutional Appears: Well - Head Exam Head Exam: ATRAUMATIC, NORMAL INSPECTION, NORMOCEPHALIC - Eye Exam Eye Exam: EOMI, Normal appearance, PERRL Pupil Exam: NORMAL ACCOMODATION, PERRL - ENT Exam ENT Exam: Mucous Membranes Moist, Normal Exam - Neck Exam Neck Exam: Full ROM, Normal Inspection. absent: Lymphadenopathy - Respiratory Exam Respiratory Exam: Decreased Breath Sounds - Cardiovascular Exam Cardiovascular Exam: REGULAR RHYTHM, +S1, +S2 - GI/Abdominal Exam GI & Abdominal Exam: Soft, Diminished Bowel Sounds - Rectal Exam Rectal Exam: Deferred
[2017-12-24] MEDS: Acetaminophen 650mg/20.3ml solution UD PEG SCH
[2017-12-24] MEDS: Piperacill/Tazo 3.375gm in Dex 3.375 GM/50 ML BAG IVPB SCH (01:37)
[2017-12-24 01:58] VITALS: BP 127/71; PULSE 75; RESP 20; TEMP 98
== END 2017-12-24 02:00 | DRG 854 ==
LOC: C.ER 22:22 → C.9E 12-17 → C.6T 12-17 03:01
PROVIDERS: ADMIT Internal Medicine Nephrology; ATTEND Internal Medicine Nephrology
PROC: 0DP64UZ Removal of Feeding Device from Stomach, Percutaneous Endoscopic Approach (ICD-10-PCS; 2017-12-21)
PROC: 0DH63UZ Insertion of Feeding Device into Stomach, Percutaneous Approach (ICD-10-PCS; 2017-12-21)
PROC: 3E0G76Z Introduction of Nutritional Substance into Upper GI, Via Natural or Artificial Opening (ICD-10-PCS; 2017-12-21)
PROC: 02H633Z Insertion of Infusion Device into Right Atrium, Percutaneous Approach (ICD-10-PCS; principal; 2017-12-23)
DX: A41.9 Sepsis, unspecified organism (principal); E46 Unspecified protein-calorie malnutrition; E87.0 Hyperosmolality and hypernatremia; E87.1 Hypo-osmolality and hyponatremia; K94.22 Gastrostomy infection; K94.23 Gastrostomy malfunction; L03.311 Cellulitis of abdominal wall; N39.0 Urinary tract infection, site not specified; D64.9 Anemia, unspecified; E77.8 Other disorders of glycoprotein metabolism; E86.0 Dehydration; E87.6 Hypokalemia; F03.90 Unspecified dementia, unspecified severity, without behavioral disturbance, psychotic disturbance, mood disturbance, and anxiety; G20 Parkinson's disease; G40.909 Epilepsy, unspecified, not intractable, without status epilepticus; I10 Essential (primary) hypertension; J45.909 Unspecified asthma, uncomplicated; K21.9 Gastro-esophageal reflux disease without esophagitis; R62.7 Adult failure to thrive; Z87.11 Personal history of peptic ulcer disease; Z87.440 Personal history of urinary (tract) infections; Z90.3 Acquired absence of stomach [part of]; K44.9 Diaphragmatic hernia without obstruction or gangrene